=== PATIENT | male | born 1950 ===

== ENCOUNTER 2018-05-12 15:32 | Outpatient (REF) | payer MEDICARE, SELFPAY ==
[2018-05-12 21:47] LABS: Hemoglobin A1C 5.9 % (4.5-6.2)
[2018-05-12 22:09] LABS: ALT 31 U/L (12-78); AST 20 U/L (15-37); Albumin 3.9 g/dL (3.4-5.0); Alkaline Phosphatase 88 U/L (46-116); Anion Gap 6.1 mmol/L (3-11); BUN 12 mg/dL (7-18); Bilirubin, Total 0.5 mg/dL (0.2-1.0); CO2 30.9 mmol/L (21.0-32.0); CREATININE 0.81 mg/dL (0.70-1.30); Calcium 9.3 mg/dL (8.5-10.1); Chloride 103 mmol/L (98-107); Cholesterol 252 mg/dL (50-200); Glucose 77 mg/dL (70-100); HDL Cholesterol 52 mg/dL (40-60); LDL CHOLESTEROL 185 mg/dL (<100); Potassium 4.6 mmol/L (3.5-5.1); Sodium 140 mmol/L (136-145); Total Protein 7.2 g/dL (6.4-8.2); Triglyceride 73 mg/dL (30-150)
[2018-05-14 10:01] LABS: PSA, Screening 8.8 ng/ml (0-6.5)
== END 2018-05-12 15:52 ==
LOC: NCHCN 15:32
PROVIDERS: PCP Family Medicine; Visit Provider Family Medicine
DX: R73.01 Impaired fasting glucose (principal); N40.1 Benign prostatic hyperplasia with lower urinary tract symptoms; R97.20 Elevated prostate specific antigen [PSA]; Z12.5 Encounter for screening for malignant neoplasm of prostate; E66.9 Obesity, unspecified; E78.5 Hyperlipidemia, unspecified
CPT/HCPCS: 80053; 80061; 83721; 84153; 83036

== ENCOUNTER 2019-12-31 16:23 | Outpatient (REF) | payer MEDICARE, SELFPAY ==
[2019-12-31 20:27] LABS: ALT 22 U/L (16-63); AST 17 U/L (15-37); Albumin 3.8 g/dL (3.4-5.0); Alkaline Phosphatase 94 U/L (46-116); Anion Gap 8.6 mmol/L (3-11); BUN 24 mg/dL (7-18); Bilirubin, Total 0.3 mg/dL (0.2-1.0); CO2 27.4 mmol/L (21.0-32.0); CREATININE 1.02 mg/dL (0.70-1.30); Calcium 8.7 mg/dL (8.5-10.1); Calculated LDL 99 mg/dL (<100); Chloride 105 mmol/L (98-107); Cholesterol 168 mg/dL (<200); Glucose 95 mg/dL (74-106); HDL Cholesterol 45 mg/dL (40-60); Potassium 4.2 mmol/L (3.5-5.1); Sodium 141 mmol/L (136-145); Total Protein 6.5 g/dL (6.4-8.2); Triglyceride 120 mg/dL (<150)
[2019-12-31 20:45] LABS: Hemoglobin A1C 5.6 % (<5.7)
[2020-01-03 10:52] LABS: PSA, Screening 8.1 ng/mL (0.0-6.5)
== END 2019-12-31 16:43 ==
LOC: NCHCN 16:23
PROVIDERS: PCP Family Medicine; Visit Provider Family Medicine
DX: E78.5 Hyperlipidemia, unspecified (principal); R73.03 Prediabetes; R97.20 Elevated prostate specific antigen [PSA]; Z12.5 Encounter for screening for malignant neoplasm of prostate; E66.9 Obesity, unspecified
CPT/HCPCS: 80053; 80061; 84153; 83036

== ENCOUNTER 2020-11-14 13:45 | Outpatient (REF) | payer MEDICARE, SELFPAY ==
[2020-11-14 14:38] LABS: Abs Immature Grans 0.02 10^3/uL (0.0-0.06); Absolute Basophil Count 0.03 10^3/uL (0.0-0.2); Absolute Lymphocyte Count 1.47 10^3/uL (1.2-3.4); Absolute Monocyte Count 0.33 10^3/uL (0.1-0.8); Absolute Neutrophil Count 2.58 10^3/uL (1.2-6.7); Basophils % 0.7; Eosinophils % 2.2; HCT 38.6 % (40.0-50.0); HGB 12.1 g/dL (13.5-17.5); Immature Grans % 0.4; Lymphocytes % 32.5; MCH 27.3 pg (27.0-33.0); MCHC 31.3 % (32.0-36.0); MCV 86.9 fL (80-95); MPV 9.4 fL (8.0-11.0); Monocytes % 7.3; Neutrophils % 56.9; Nucleated RBC 0 %; Platelet Count 244 10^3/uL (130-400); RBC 4.44 10^6/uL (4.36-5.78); RDW 16.3 % (11.8-14.1); RDW-SD 51.8 fL; WBC 4.53 10^3/uL (4.4-10.8)
[2020-11-14 15:03] LABS: ALT 29 U/L (16-63); AST 19 U/L (15-37); Albumin 3.9 g/dL (3.4-5.0); Alkaline Phosphatase 102 U/L (46-116); Anion Gap 6.8 mmol/L (3-11); BUN 17 mg/dL (7-18); Bilirubin, Total 0.6 mg/dL (0.2-1.0); CO2 29.2 mmol/L (21.0-32.0); CREATININE 0.9 mg/dL (0.70-1.30); Calcium 8.8 mg/dL (8.5-10.1); Chloride 106 mmol/L (98-107); Glucose 88 mg/dL (74-106); Potassium 4.3 mmol/L (3.5-5.1); Sodium 142 mmol/L (136-145); TSH (W/Ref FT4) 1.03 uIU/mL (0.36-3.74)
[2020-11-14 22:36] LABS: PSA, Screening 11.9 ng/mL (0.0-6.5)
[2020-11-15 09:34] LABS: Calculated LDL 137 mg/dL (<100); Cholesterol 192 mg/dL (<200); HDL Cholesterol 48 mg/dL (40-60); Triglyceride 37 mg/dL (<150)
[2020-11-15 10:28] LABS: Lyme Ab w Rflx to Lyme Confirm Negative (Negative)
[2020-11-16 00:18] LABS: Anaplasma phagocytophilum Negative (Negative); B. miyamotoi PCR Negative (Negative); Babesia divergens/MO-1 Negative (Negative); Babesia duncani Negative (Negative); Ehrlichia chaffeensis Negative (Negative); Ehrlichia ewingii/canis Negative (Negative); Ehrlichia muris eauclairensis Negative (Negative)
[2020-11-16 09:46] LABS: Babesia microti Positive (Negative)
== END 2020-11-14 13:46 | disposition home or self-care (01) ==
LOC: NCHCN 13:45
PROVIDERS: PCP Family Medicine; Visit Provider Family Medicine
DX: R53.83 Other fatigue (principal); R97.20 Elevated prostate specific antigen [PSA]; N40.1 Benign prostatic hyperplasia with lower urinary tract symptoms; M25.50 Pain in unspecified joint
CPT/HCPCS: 80053; 80061; 84153; 87798; 84443; 85025; 86618

== ENCOUNTER 2020-12-21 14:36 | Outpatient (REF) | payer MEDICARE, SELFPAY ==
[2020-12-21 13:56] LABS: HCT 41.6 % (40.0-50.0); HGB 13.6 g/dL (13.5-17.5); MCH 27.4 pg (27.0-33.0); MCHC 32.7 % (32.0-36.0); MCV 83.9 fL (80-95); MPV 10.3 fL (8.0-11.0); Platelet Count 209 10^3/uL (130-400); RBC 4.96 10^6/uL (4.36-5.78); RDW 13.6 % (11.8-14.1); WBC 5.49 10^3/uL (4.4-10.8)
[2020-12-21 14:09] LABS: Iron 87 ug/dL (65-175); Total Iron Binding Capacity 359 ug/dL (250-450); Transferrin Sat 24 % (20-55)
[2020-12-21 14:33] LABS: Ferritin 16 ng/mL (26-388); Folate 18.7 ng/mL (8.6-20.0); Vitamin B12 489 pg/mL (193-986)
== END 2020-12-21 14:37 | disposition home or self-care (01) ==
LOC: NCHCN 14:36
PROVIDERS: PCP Family Medicine; Visit Provider Family Medicine
DX: E78.5 Hyperlipidemia, unspecified (principal); R53.83 Other fatigue; D64.9 Anemia, unspecified; M25.569 Pain in unspecified knee
CPT/HCPCS: 85027; 82607; 82728; 82746; 83540; 83550

== ENCOUNTER 2021-11-19 16:33 | Outpatient (REF) | payer MEDICARE, SELFPAY ==
[2021-11-19 15:48] LABS: Hemoglobin A1C 5.4 % (<5.7)
[2021-11-19 16:17] LABS: ALT 25 U/L (16-63); AST 20 U/L (15-37); Albumin 4.3 g/dL (3.4-5.0); Alkaline Phosphatase 94 U/L (46-116); Anion Gap 7.2 mmol/L (3-11); BUN 16 mg/dL (7-18); Bilirubin, Total 0.5 mg/dL (0.2-1.0); CO2 27.8 mmol/L (21.0-32.0); CREATININE 0.9 mg/dL (0.70-1.30); Calculated LDL 119 mg/dL (<100); Chloride 104 mmol/L (98-107); Cholesterol 185 mg/dL (<200); Glucose 89 mg/dL (74-106); HDL Cholesterol 52 mg/dL (40-60); Potassium 4.5 mmol/L (3.5-5.1); Sodium 139 mmol/L (136-145); Triglyceride 74 mg/dL (<150)
== END 2021-11-19 16:34 | disposition home or self-care (01) ==
LOC: NCHCN 16:33
PROVIDERS: PCP Family Medicine; Visit Provider Family Medicine
DX: E78.5 Hyperlipidemia, unspecified (principal); R73.03 Prediabetes
CPT/HCPCS: 80053; 80061; 83036

== ENCOUNTER 2022-11-14 18:52 | Outpatient (REF) | payer MEDICARE, SELFPAY ==
[2022-11-14 18:14] LABS: ALT 43 U/L (16-63); AST 26 U/L (15-37); Alkaline Phosphatase 81 U/L (46-116); Anion Gap 6.7 mmol/L (3-11); BUN 22 mg/dL (7-18); Bilirubin, Total 0.6 mg/dL (0.2-1.0); CO2 26.3 mmol/L (21.0-32.0); CREATININE 0.9 mg/dL (0.70-1.30); Calcium 8.9 mg/dL (8.5-10.1); Calculated LDL 142 mg/dL (<100); Chloride 108 mmol/L (98-107); Cholesterol 197 mg/dL (<200); Estimated GFR 89.62 (mL/min/1.73m2); Glucose 107 mg/dL (74-106); HDL Cholesterol 47 mg/dL (40-60); Potassium 4.5 mmol/L (3.5-5.1); Sodium 141 mmol/L (136-145); Total Protein 7.3 g/dL (6.4-8.2); Triglyceride 40 mg/dL (<150)
[2022-11-14 18:23] LABS: Hemoglobin A1C 5.6 % (<5.7)
== END 2022-11-14 18:53 | disposition home or self-care (01) ==
LOC: NCHCN 18:52
PROVIDERS: PCP Family Medicine; Visit Provider Family Medicine
DX: E78.5 Hyperlipidemia, unspecified (principal); R73.03 Prediabetes; Z00.00 Encounter for general adult medical examination without abnormal findings
CPT/HCPCS: 80053; 80061; 83036

== ENCOUNTER 2023-11-20 08:31 | Outpatient (REF) | payer MEDICARE, SELFPAY ==
--- OUTSIDE RECORDS SUMMARY | 2023-11-20 08:34 | XMS_ITS | Continuity of Care Document ---
Author Organization [facility] Address [address] [place] [address] Assessment No assessment recorded. Plan of Treatment Reminders Order Date Submit Date Provider Last Modified By Organization Details Last Modified Time Details Appointments FASTING LABS 2023 08:00A M [place] [facility] Not available Not available Not available Medicare Wellness 40 (Subs) 2023 03:20P M MARK ANTHONY MUHAMMAD Not available Not available Not available Lab CMP, serum or plasma 2023 024 [facility] (Registration ), [address] [place] [address] [place], [address], 11/20/2023 08:15:27 lipid panel, serum 2023 024 [facility] (Registration ), [address] [place] [address] [place], [address], 11/20/2023 08:15:27 HbA1c (hemoglob in A1c), blood 2023 024 [facility] (Registration ), [address] [place] [address] [place], [address], 11/20/2023 08:15:27 Referral None recorded. Procedures None recorded. Surgeries None recorded. Imaging None recorded. Medication Orders None recorded. Patient TargetsNo targets recorded. Patient InstructionsNo instructions recorded. Reason for Referral Sleep Medicine Referral for Obstructive sleep apnea syndrome Referral for Kajal Jon, Sleep Specialist, [facility] Referring Physician: Mark Anthony Muhammad, Family Medicine, Encounter Date: 04/08/2023 Problems Name Status Onset Date Resolution Date Notes Provider Name and Address Organization Details Recorded Time Lower urinary tract symptoms due to benign prostatic hypertrophy Active 201511/20/2021 - Comments only - Mark Anthony Muhammad M.D. - with elevated PSA; followed by Jonathan. Problem Code: N40.1; Problem Code Type: ICD-10; MARK ANTHONY MUHAMMAD MD [address], [place], [address] , [facility] 4 10:08:08 Prostate specific antigen above reference range Active 201507/22/2021 - Comments only - Mark Anthony Muhammad M.D. - in setting of BPH. f/b Jonathan. She is on top of most recent numbers. Problem Code: R97.20; Problem Code Type: ICD-10; MD [address], [place], [address] , [facility] 4 10:08:08 Hypertrophic condition of skin Completed 201506/12/2015 06/11/2015 - Comments only - Mark Anthony Muhammad M.D. - Removed with scissors using standard procedure. Pt tolerated it well, no complications . Problem Code: L91.8; Problem Code Type: ICD-10; Not Available [facility] 3 03:58:43 General examination of patient Completed 201506/12/2015 Problem Code: Z00.8; Problem Code Type: ICD-10; Not Available [facility] 3 03:58:44 Tinnitus Completed 201506/19/2015 Problem Code: H93.19; Problem Code Type: ICD-10; Not Available [facility] 3 03:58:44 Bilateral hearing loss Completed 201506/19/2015 06/11/2015 - Comments only - Mark Atnhony Muhammad M.D. - Cereumen removed. Referral for audiology placed. Problem Code: H91.93; Problem Code Type: ICD-10; Not Available [facility] 3 03:58:44 Impacted cerumen Completed 201506/19/2015 Problem Code: H61.20; Problem Code Type: ICD-10; Not Available [facility] 3 03:58:44 Essential tremor Active 201506/11/2015 - Comments only - Mark Anthony Muhammad M.D. - very subtle. Otherwise normal neuro exam. No concern for Parkinsons at this time. Reassurance given. Continue to monitor. Problem Code: G25.0; Problem Code Type: ICD-10; MD [address], [place], [address] , [facility] 4 10:08:08 Traumatic or non-traumatic injury Completed 201507/18/2015 07/11/2015 - Comments only - Dalia Plaza [employer] - doxycycline 200 mg po stat Problem Code: T14.8; Problem Code Type: ICD-10; Not Available [facility] 3 03:58:44 Hyperlipidemi a Active 201611/21/2022 - Deteriorated - Mark Anthony Muhammad M.D. - Lipids: TC 197 (11/14/2022 6:14:00 PM) LDL 142 (11/14/2022 6:14:00 PM) HDL 47 (11/14/2022 6:14:00 PM) TG 40 (11/14/2022 6:14:00 PM) Offered to inc statin, but he prefers to just take it more consistently. check annually. Problem Code: E78.5; Problem Code Type: ICD-10; MD [address]ars[address], [place], [address] , [facility] 4 10:08:08 Single episode of major depression in full remission Active 201611/20/2021 - Comments only - Mark Anthony Muhammad M.D. - doing great on low dose SSRI. Problem Code: F32.5; Problem Code Type: ICD-10; MD [address]ars[address], [place], [address] , [facility] 4 10:08:08 Obesity Active 201612/31/2019 - Improved - Mark Anthony Muhammad M.D. - Congratulated him on having lost weight. Encouraged him to keep up the good work. Problem Code: E66.9; Problem Code Type: ICD-10; MD [address], [place], [address] , [facility] 4 10:08:08 Sensorineural hearing loss of bilateral ears Active 201608/13/2016 - Comments only - Mark Anthony Muhammad M.D. - referred to audiology. Problem Code: H90.3; Problem Code Type: ICD-10; MD [address]ars[address], [place], [address] , [facility] 4 10:08:08 Adult health examination Completed 201805/13/2018 05/12/2018 - Comments only - Mark Anthony Muhammad M.D. - Medicare wellness exam. Personalized prevention plan competed and rev'd with patient. patient was given copy of PPP at conclusion of visit. - HLD : off statin, recheck lipids. - IFG : check A1c today - Obesity : check labs as below - BPH s/p TURP with PSA of 7.0 in 2017. No sx, but recheck PSA today. - Depression: stable off SSRI; continue to monitor; he will let me know if depression comes back. Problem Code: Z00.00; Problem Code Type: ICD-10; MD [address]ars[address], [place], [address] , [facility] 4 10:08:08 Prediabetes Active 201811/21/2022 - Comments only - Mark Anthony Muhammad M.D. - Normal A1c; FBG slightly elevated at 107. Counseled re: healthy diet, exercise. check annually. Problem Code: R73.03; Problem Code Type: ICD-10; MD [address], [place], [address] , [facility] 4 10:08:08 Pain of left hip joint Completed 201904/22/2023 12/31/2019 - Comments only - Mark Anthony Muhammad M.D. 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 Referral placed to his orthopedic surgeon. Problem Code: M25.552; Problem Code Type: ICD-10; MD Dars[address], [facility] [address] , [facility] 4 10:08:12 Obstructive sleep apnea syndrome Active 2019 Problem Code: G47.33; Problem Code Type: ICD-10; MD Darshan [address], [facility] [address] , [facility] 4 10:08:08 Fatigue Completed 202004/22/2023 02/07/2021 - Comments only - Mark Anthony Muhammad M.D. - Fairly chronic at this point. B12, well normal, was on the lower end of the range, so I did recommend he start a B complex. Additionally, start a vitamin D supplement. Advised daily exercise to help with fatigue. Increase fluoxetine to 40 mg a day to see if that is helpful, in case fatigue is related to depression. He will let me know if he wants to continue a higher dose and I will change his prescription accordingly. Problem Code: R53.83; Problem Code Type: ICD-10; MD Darshan [address], [facility] [address] , [facility] 4 10:08:12 Joint pain Completed 202010/31/2020 Problem Code: M25.50; Problem Code Type: ICD-10; Not Available [facility] 3 03:58:46 Anemia Active 202011/30/2020 - Comments only - Mark Anthony Muhammad M.D. - I do not have a prior CBC to which to compare this. Patient is up-to-date on colon cancer screening, due next year. He will return in about a month and we will recheck a CBC, along with iron studies, B12, and folate. Problem Code: D64.9; Problem Code Type: ICD-10; MD [address]ars[address], [place], [address] , [facility] 4 10:08:08 Pain of joint of knee Active 2020 Problem Code: M25.569; Problem Code Type: ICD-10; MD Darshan [address], [place], [address] , [facility] 4 10:08:08 Tension-type headache Completed 202005/07/2021 02/07/2021 - Comments only - Mark Anthony Muhammad M.D. - Mild, occurring a couple times a week. Often in the morning. This suggests to me it could possibly be related to his MARK. Although he is compliant with his CPAP, his settings may need to be adjusted. I recommended he discuss headaches and fatigue with his sleep doctor in March. Problem Code: G44.209; Problem Code Type: ICD-10; Not Available [facility] 3 03:58:46 Disorder of external ear Completed 202004/07/2021 Problem Code: H61.899; Problem Code Type: ICD-10; Not Available [facility] 3 03:58:46 Musculoskelet al symptom Completed 202110/18/2021 07/22/2021 - Comments only - Mark Anthony Muhammad M.D. - No pain. He is actually still quite flexible. Offered PT, but he declines at this time. Handout given for him back exercises. Problem Code: R29.898; Problem Code Type: ICD-10; Not Available [facility] 3 03:58:46 Adult health examination Active 202111/20/2021 - Comments only - MarkA nthony Muhammad M.D. - Medicare wellness exam. HRA reviewed. Personalized prevention plan competed and rev'd with patient. patient was given copy of PPP at conclusion of visit. Problem Code: Z00.00; Problem Code Type: ICD-10; MARK ANTHONY MUHAMMAD MD [address], [place], [address] , [facility]. 4 10:08:08 Removal of suture Completed 202209/21/2022 09/20/2022 - Comments only - Mark Anthony Muhammad M.D. - Laceration has healed well and sutures are ready to be removed. Procedure note: Verbal consent was obtained. Using standard procedure, #10 simple sutures were removed with pickups and scissors. Patient tolerated procedure well. Wound remained intact, with the exception of the deepest part of the V, which has not quite healed. Steri-Strips were placed. After instructions given. Problem Code: Z48.02; Problem Code Type: ICD-10; Not Available [facility] 3 03:58:47 Impaired fasting glycemia Completed 201801/15/2023 Problem Code: R73.01; Problem Code Type: ICD-10; Not Available [facility] 3 03:58:47 Major depression, single episode Completed 201601/15/2023 08/13/2016 - Unchanged - Mark Anthony Muhammad M.D. - pt not sure celexa is working to maximum effect, and has never tried another SSRI. switch to fluoxetine. pt knows he may need to inc dose. f/u over phone. Problem Code: F32.9; Problem Code Type: ICD-10; Not Available [facility] 3 03:58:47 Fever Completed 201506/11/2015 Problem Code: R50.9; Problem Code Type: ICD-10; Not Available [facility] 3 03:58:49 Babesiosis Completed 202011/30/2020 Problem Code: B60.00; Problem Code Type: ICD-10; Not Available [facility] 3 03:58:49 Problem Notes None recorded. Medical Equipment None Reported. Allergies Allergen ID Allergen Name Allergen Category Reaction Reaction Severity Criticality Documentation Date Start Date Code Code System Note Provider Name and Address Organization Details Recorded Time 77408 Compazine medicatio n Not available Not available Not available 02/28/2023201554 6 RxNorm Not Available [facility] 3 16:26:09 Medications Name Sig Start Date Stop Date Status Note LastModified by Organization Details LastModified Time fluoxetin e 40 mg capsule TAKE 1 CAPSULE BY MOUTH EVERY DAY active Not Available Not Available No t Available citalopra m 40 mg tablet Take 1 tab by mouth daily 2015 active Not Available Not Available Not Avai lable atorvasta tin 10 mg tablet TAKE 1 TABLET BY MOUTH EVERY DAY active Not Available Not Available No t Available tramadol 50 mg tablet Take 1 tab by mouth daily up to 4 times 06/05 completed Not Available Not Available Not Available tamsulosi n 0.4 mg capsule Take 1 tab by mouth daily at bedtime 07/10 completed Not Available Not Available Not Available fluoxetin e 10 mg capsule Take 2 capsule by mouth once a day 09/22 completed Not Available Not Available Not Available Aspir-81 mg tablet,de layed release Take 1 tab by mouth daily 05/12 completed Not Available Not Available Not Available fluoxetin e 20 mg capsule Take 1 capsule by mouth once a day 04/02 completed Not Available Not Available Not Available sertralin e 50 mg tablet TAKE 1 TABLET BY MOUTH EVERY DAY 05/12 completed Called in to [facility] in [facility] [phone] Not Available Not Available Not Available doxycycli ne hyclate 100 mg tablet Take 2 tabs by mouth one time 07/11 completed Not Available Not Available Not Available finasteri de 5 mg tablet Take 1 tab by mouth daily 07/10 completed Not Available Not Available Not Available Shingrix (PF) 50 mcg/0.5 mL intramusc ular suspensio n, kit one IM now and repeat in 2-6 months 11/21 completed Not Available Not Available Not Available Vitals None Recorded Social History None recorded. Functional Status None recorded. Mental Status None recorded. Family History Relationship Description Onset Age of this Age Resolved Age Notes Father Family history of he art failure Mother Family history of he art failure Notes:*Problem: mom passed a way at 95, dad - had heart surgery and down to one lung. Medical History No medical history recorded. Immunizations Vaccine Type Date Status Provider Name and Address Organization Details Recorded Time Td (adult), 5 Lf tetanus toxoid, preservative free, adsorbed 11/21/2022 completed Not Available [facility] 02/28/2023 05:33:51 Tdap 09/12/2009 completed Not Available [facility] 05:33:51 zoster live 09/03/2011 completed Not Available [facility] 02/28/2023 05:33:51 Pneumococcal conjugate PCV 13 06/26/2016 completed Not Available [facility] 02/28/2023 05:33:51 Influenza, split virus, trivalent, preservative 06/26/2016 completed Not Available [facility] 02/28/2023 05:33:52 Influenza, high-dose, quadrivalent, PF 02/06/2021 completed Not Available [facility] 02/28/2023 05:33:52 Influenza, high-dose, quadrivalent, PF 02/13/2022 completed Not Available [facility] 02/28/2023 05:33:52 COVID-19, mRNA, LNP-S, PF, 100 mcg/0.5mL dose or 50 mcg/0.25mL dose 06/12/2020 completed Not Available [facility] 02/28/2023 05:33:53 COVID-19, mRNA, LNP-S, PF, 100 mcg/0.5mL dose or 50 mcg/0.25mL dose 07/10/2020 completed Not Available [facility] 02/28/2023 05:33:53 SARS-COV-2 (COVID-19) vaccine, UNSPECIFIED 02/12/2021 completed Not Available [facility] 02/28/2023 05:33:53 COVID-19, mRNA, LNP-S, bivalent, PF, 30 mcg/0.3 mL dose 02/13/2022 completed Not Available [facility] 02/29/20 05:33:54 pneumococcal polysaccharide PPV23 01/06/2014 completed Not Available [facility] 2022 05:33:54 influenza, unspecified formulation 12/20/2010 completed Not Available [facility] 02/28/2023 05:33:54 influenza, unspecified formulation 01/04/2013 completed Not Available [facility] 02/28/2023 05:33:54 influenza, unspecified formulation 01/06/2014 completed Not Available [facility] 02/28/2023 05:33:54 influenza, unspecified formulation 02/19/2020 completed Not Available [facility] 02/28/2023 05:33:54 influenza, unspecified formulation 03/18/2012 completed Not Available [facility] 02/28/2023 05:33:55 influenza, unspecified formulation 03/20/2018 completed Not Available [facility] 02/28/2023 05:33:55 Influenza, high-dose, quadrivalent, PF 02/26/2023 completed Not Available [facility] 05/02/2023 05:31:41 COVID-19, mRNA, LNP-S, PF, ganesh-sucrose, 30 mcg/0.3 mL 02/26/2023 completed Not Available [facility] 05/02/2023 05:31:42 Past Encounters Encounter ID Performer Location Encounter Start Date Encounter Closed Date Diagnosis/Indication Diagnosis SNOMED-CT Code [id number] SHANKAR BONNER RN [address] [address] 11/20/2023 07:43:54 11/20/2023 08:19:55 Adult health examination [id number] Health Concerns Section Related Observation LastModified by Organization Detai ls LastModified Time None Recorded Concern Status LastModified by Organization Details LastModified Time None Recorded Payers Encounter Date Sequence Insurance Name Policy Number Policy Ruby Covered Member ID Ruby Member ID Guarantor Name 11/20/2023 2 [employer] OPTIONS (MEDICARE SUPPLEMENT) [place] [id number] [place] [employer] 11/20/2023 1 [place] [employer] [place] [employer] [id number] [place] [employer]
--- OUTSIDE RECORDS SUMMARY | 2023-11-20 08:34 | XMS_ITS | Encounter Summary ---
Author Organization [facility] Address [address] [place] [address] Care Team Providers Care Support Group Manager Name Role Phone Not In System, Provider Primary Care Provider Un available Encounter Details Date Type Department Care Team (Latest Contact Info) Description 03/10/2020 8:05 AM EST - 03/10/2020 11:59 PM EST Hospital Encounter [facility] Pre-encounter Lab Hema Rodriguez MD [address] [place] [address] Screening for viral disease; Preop examination Discharge Disposition: Home or Self Care Social History Tobacco Use Types Packs/Day Years Used Date Smoking Tobacco: Never Alcohol Use Standard Drinks/Week Comments Yes 0 (1 standard drink = 0.6 oz pur e alcohol) rare Sex and Gender Information Value Date Recorded Sex Assigned at Not on file Gender Identity Not on file Sexual Orientation Not on file Job Start Date Occupation Industry Not on file Not on file Not on file COVID-19 Exposure Response Date Recorded In the last month, have you been in contact with someone who was confirmed or suspected to have Coronavirus / COVID-19? Unable to assess 03/10/2020 9:49 AM EST documented as of this encounter Medications at Time of Discharge Medication Sig Dispensed Refills Start Date End Date atorvastatin (LIPITOR) 10 MG tablet Take 10 mg by mouth once daily. 11/28/2019 FLUoxetine (PROZAC) 10 MG capsule Take 20 mg by mouth once daily. 11/30/2019 acetaminophen (TYLENOL) 500 MG tabletIndications:Status post total hip replacement, left Take 2 (two) tablets (1,000 mg total) by mouth every 8 (eight) hours for 14 days. Take Post-Operatively. 84 tablet 03/01/2020 03/15/2020 celecoxib (CELEBREX) 200 MG capsuleIndications:Statu s post total hip replacement, left Take 1 (one) capsule (200 mg total) by mouth 2 (two) times a day for 14 days. Take Post-Operatively. 28 capsule 03/01/2020 03/15/2020 gabapentin (NEURONTIN) 300 MG capsuleIndications:Statu s post total hip replacement, left Take 1 (one) capsule (300 mg total) by mouth 3 (three) times a day for 14 days. Take Post-Operatively. 42 capsule 03/01/2020 03/15/2020 acetaminophen (TYLENOL) 500 MG tabletIndications:Primar y osteoarthritis of left hip Take 2 tablets three times daily starting 2 days prior to surgery and on the morning of surgery. 14 tablet 03/01/2020 03/13/2020 aspirin (ASA) 325 MG enteric coated tabletIndications:Status post total hip replacement, left Take 1 (one) tablet (325 mg total) by mouth 2 (two) times a day for 25 days. Take post-operatively. 50 tablet 03/01/2020 03/30/2020 celecoxib (CELEBREX) 200 MG capsuleIndications:Prima ry osteoarthritis of left hip Take 1 capsule twice daily starting 2 days prior to surgery and on the morning of surgery. 5 capsule 03/01/2020 03/13/2020 gabapentin (NEURONTIN) 100 MG capsuleIndications:Prima ry osteoarthritis of left hip Take 1 capsule three times daily starting 2 days prior to surgery and on the morning of surgery. 7 capsule 03/01/2020 03/13/2020 omeprazole (PRILOSEC) 40 MG delayed release capsuleIndications:Statu s post total hip replacement, left Take 1 (one) capsule (40 mg total) by mouth daily at 6:30 am. Start Postoperatively. 20 capsule 03/01/2020 03/30/2020 oxyCODONE (ROXICODONE) 5 MG immediate release tabletIndications:Status post total hip replacement, left Take 1 (one) tablet (5 mg total) by mouth every 6 (six) hours as needed. Take Post-Operatively. 20 tablet 03/01/2020 03/30/2020 polyethylene glycol (MIRALAX) 17 gram packetIndications:Status post total hip replacement, left Take 17 (seventeen) g by mouth once daily. Start postoperatively. 14 packet 03/01/2020 03/30/2020 documented as of this encounter Plan of Treatment Not on file documented as of this encounter Procedures Procedure Name Priority Date/Time Associated Diagnosis Comments COVID-19 PCR Routine 03/10/2020 10:02 AM EST Screening for viral disease Preop examination documented in this encounter Results * COVID-19, PCR (03/10/2020 10:02 AM EST) SARS-CoV-2 Not Detected Not Detected 03/10/2020 5:03 PM EST Comment: The 2019-CoV environmental conservation professor-PCR Assay is only for use under a Food and Drug Administration Emergency Use Authorization. The performance characteristics of the assay were verified by the Clinical Microbiology Laboratory at [facility]. Results should be used in conjunction with the patient? s clinical symptoms, medical history and other clinical/laboratory findings to determine an overall clinical diagnosis. Negative results do not preclude infection with SARS-CoV-2. Test parameters have not been validated for screening in asymptomatic patients. SARS-CoV-2 COMMENT Footnote 2019 5:03 PM EST Comment: Test Performed by: [facility] [address] [place] [address] Nasopharyngeal 03/10/2020 10 :02 AM EST 03/10/2020 10:02 AM EST Hema Rodriguez MD BODY FLUIDS AND NORMA ALVAREZ ORDERABLES [facility] [address] [place] [address] documented in this encounter Visit Diagnoses Diagnosis Screening for viral disease Special screening examination for unspecified viral disease Preop examination Unspecified pre-operative examination documented in this encounter Care Teams Support Group Manager Relationship Specialty Start Date End Date Not In System, [place] [address] PCP - General 01/03/20 documented as of this encounter
--- OUTSIDE RECORDS SUMMARY | 2023-11-20 08:34 | XMS_ITS | Encounter Summary ---
Author Organization [facility] Address [address] [place] [address] Care Team Providers Care Online Marketing Coordinator Name Role Phone Not In System, Provider Primary Care Provider Un available Encounter Details Date Type Department Care Team (Late st Contact Info) Description 03/07/2020 Plan of Care Documentation [facility] [address] [place] [address] Social History Tobacco Use Types Packs/Day Years [...] or suspected to have Coronavirus / COVID-19? No / Unsure 03/01/2020 11:25 AM EST documented as of this encounter Plan of Treatment Not on file documented as of this encounter Visit Diagnoses Not on filedocumented in this encounter Care Teams Online Marketing Coordinator Relationship Specialty Start Date End Date Not In System, [place] [address] PCP - General 01/03/20 documented as of this encounter
--- OUTSIDE RECORDS SUMMARY | 2023-11-20 08:34 | XMS_ITS | Encounter Summary ---
[place] [address] Care Team Providers Care Operations Architect Name Role Phone Benjamin Muhammad MD Primary Care Provider [phone] Reason for Referral * Physical Therapy (Routine) - Closed Specialty Diagnoses / Procedures Referred By Bambi seals Referred To Contact Physical Therapy Diagnoses Chronic pain of left knee Pain in left hip Tabatha Woodard APRN [facility] [place] [address] Referral ID Status Reason Start Date Expiration Date V isits Requested Visits Authorized [id number] Closed Evaluate and Treat 02/20/2022 08/19/2022 12 12 Reason for Visit * Reason Comments Establish Care Left Knee Pain * Consultation (Routine) - Closed Specialty Diagnoses / Procedures Referred By Bambi seals Referred To Contact Orthopaedics Diagnoses ACUTE ON CHRONIC LT KNEE PAIN W/O INJURY HX LT KNEE SCOPE DOS APPRX 2006 (ANGEL) KELSEY Self mail [facility] [address] [place] [address] Referral ID Status Reason Start Date Expiration Date V isits Requested Visits Authorized [id number] Closed Consult, Test & Treat 02/04/2022 02/04/2023 1 1 Encounter Details Date Type Department Care Team (Latest Contact Info) Description 02/20/2022 2:00 PM EDT Office [place] [address] Tabatha Woodard APRN [facility] [address] [place] [address] Chronic pain of left knee (Primary Dx); Primary osteoarthritis of left knee; Pain in left hip Social History Tobacco Use Types Packs/Day Years Used Date Smoking Tobacco: Never Smokeless Tobacco: Never Sex and Gender Information Value Date Recorded Sex Assigned at Not on file Gender Identity Not on file Sexual Orientation Not on file documented as of this encounter Last Filed Vital Signs Vital Sign Reading Time Taken Comments Blood Pressure 141/76 02/20/2022 1:15 PM EDT Pulse 50 02/20/2022 1:15 PM EDT Temperature - - Respiratory Rate - - Oxygen Saturation - - Inhaled Oxygen Concentration - - Weight 99.8 kg (220 lb 1.6 oz) 02/20/2022 1:15 P M EDT Height 172.7 cm (5' 8) 02/20/2022 1:15 PM EDT Body Mass Index 33.47 02/20/2022 1:15 PM EDT documented in this encounter Progress Notes * Tabatha Woodard, JENNIFER - 02/20/2022 2:00 PM EDT Arthroplasty History/Previous Knee Surgery: 1. LEFT knee arthroscopy 2006 2. Both hip JEAN PAUL left JEAN PAUL 2019 Dr. Rodriguez right hip JEAN PAUL 2015. Chief Complaint: LEFT knee pain This patient was referred from Self mail I.D.: [place] Mg is a 71 y.o. year old male being seen today to discuss his left knee. His history and physical exam were reviewed in detail. He states the knee has been symptomatic for a few weeks. The initial symptoms are reported as trouble lifting my leg and wonders if things are coming from my hip. There was yes inciting trauma/injury (kneeling on the kneeling). He does describe some new weakness in the LEFT hip. Hx of JEAN PAUL surgery. He does feel as if he walks with a limp mostly with start up. Aggravating factors include + start up pain. Alleviating factors include relative rest and avoidance of painful activity. He can walk independently and does not use assistive devices. He has not tried physical therapy. He reports that over the past few days things are starting to settle and feel better. He has not had tried injections into the joint. NONE reported He has tried NSAID's/Pain meds (OTC). Mr. Mg denies No reported fevers/chills/headache/chest pain/shortness of breath/abdominal pain/nausea or vomiting/weight changes He does not endorse a history of DVT/PE or clotting disorder. ASSOCIATED DIAGNOSES: He does reports problems with the ipsilateral hip (new weakness in the hip with known JEAN PAUL). does not report problems with the contralateral knee and does not have a history of spine or back issues. ALLERGIES Not on File Allergies to metals: none reported. SOCIAL HISTORY: Occupation: [employer]. SIGNIFICANT MEDICAL [employer] MORBIDITIES: There is no problem list on file for this patient. VITALS: BP Readings from Last 1 Encounters: No data found for BP Pulse Readings from Last 1 Encounters: No data found for Pulse There is no height or weight on file to calculate BMI. PHYSICAL EXAM: Constitution: Patient sits in the clinic today in no apparent distress. The patient is alert and oriented x 3. Appearance is age-appropriate, affect is similarly appropriate. I have made the following determinations: Gait is steady and non-antalgic. No assistive devices. SLR capability intact. Focal thickening chronic due to hx of kneeling. Trace effusion. No evidence of infection. No groin pain with IR/ER . Non-focal lumbar spine exam. Knee Exam: Left Prior surgery on this joint: Yes Gait Abnormality: Mild start up antalgia that corrects with ambulation Knee ROM: Extension:5 Flexion: 125 Alignment: 5-11 degrees Varus Stability: A/P Translation <5mm Varus (lateral stability) <5mm Valgus (medial stability) <5mm Extension La-10 degrees Patella Tracking: Normal Skin Integrity: Normal Pulses Palpable: Left PT:Yes Left DP:Yes Motor/Sensory: Distal Motor:Normal Distal Sensory: Normal Quadriceps Strength:5 RADIOGRAPHIC ANALYSIS: Together, we reviewed his radiographs obtained previously which demonstrate degenerative joint disease. Kellgren-Darius Grade: 2= some osteophytes, some narrowing with chondrocalcinosis [0= normal; 1=minimal ; 2= some osteophytes , some narrowing ; 3= moderate osteophytes, significantnarrowing, mild deformity; 4= large osteophytes, marked narrowing, obvious deformity] Questionnaire Responses: No flowsheet data found. No flowsheet data found. No flowsheet data found. ASSESSMENT AND PLAN: Mr. Mg is a 71 y.o. year old male with moderate osteoarthritis and chondrocalcinosis of his left knee. The knee pain is by and large resolving with conservative management. We reviewed the multiple treatment options available to him for this condition. Both operative and non operative options were discussed as well as the pure elective nature of each. I reviewed the concept of the arthritis ladder with its step-leggett approach, rising in invasiveness based on either previous response or symptom severity/impact on lifestyle. Considering the apparent impact on his lifestyle and having explored non- operative treatment options, I indicated that in my opinion, the treatment most likely to restore a more normal, pain-free level of function would be to start with a comprehensive PT program emphasizing quad and VMO strengthening, hip abductor strengthening, balance/proprioceptive work. OTC NSAID's or APAP PRN. Cool packs. Avoid activities that reproduce pain. I recommend a f/u in 6-8 weeks if things do not settle. Pt agrees, questions solicited/answered, will return as scheduled and as needed for concerns or questions. Pt understands they may also call usprn for above. documented in this encounter Plan of Treatment Upcoming Encounters Date Type Department Care Team (Late st Contact Info) Description 03/10/2024 9:30 AM EST Office Visit Sleep Center at [address] [address] Corbin Epstein MD [facility] [place] [place] [address] Scheduled Referrals Name Type Priority Associated Diagnoses Orde r Schedule Referral to Physical Therapy Outpatient Referral Routine Chronic pain of left knee Pain in left hip Ordered: 02/20/2022 documented as of this encounter Results * XR Knee Standing Alignment AP Lat [place] Left (02/20/2022 2:15 PM EDT) Anatomical Region Laterality Modality Left Digital Radiogra phy Impressions 02/20/2022 3:22 PM EDT 1. ??Bilateral knee, LEFT greater than RIGHT CPPD associated osteoarthropathy. 2. ??Bilateral hip arthroplasty with midline mechanical axis. I have personally reviewed the image(s) and the resident's interpretation and agree with the findings, Leatha Vazquez MD at 02/20/2022 3:22 PM Thank you for letting us participate in the care of this patient. ??If you are a health care provider and have any questions regarding this report, please contact the number below. ??For patients who have questions please contact the health care transition mgr that requested your imaging first. ? Electronically signed by: Leatha Vazquez MD, [facility] ([phone]), at 02/20/2022 3:22 PM Narrative 02/20/2022 3:22 PM EDT EXAMINATION: XR KNEE STANDING ALIGNMENT AP LAT [place] SKYLINE LEFT CLINICAL HISTORY: acute on chronic left knee pain ? alignment ? DJD TECHNIQUE: Separate images of the pelvis, knees and feet were acquired in the AP projection with the patient standing. ??These images were stitched together to form a composite image of the pelvis and legs. PA Carr, bilateral skyline, and LEFT lateral knee views are included. COMPARISON: None FINDINGS: Alignment: Mechanical axis is midline bilaterally. Partially visualized bilateral total hip arthroplasty without adjacent fracture or joint malalignment. Partially visualized RIGHT knee demonstrates chondrocalcinosis, osteophytic lipping, and marginal osteophyte formation with narrowing of the lateral medial compartments. LEFT knee: Medial lateral compartment narrowing, osteophytic lipping, and subchondral sclerosis present. Joint space chondrocalcinosis is present. Additional calcinosis in the proximal gastrocnemius muscles. No joint effusion. Procedure Note Leatha Vazquez MD - 02/20/2022 EXAMINATION: XR KNEE STANDING ALIGNMENT AP LAT [place] SKYLINE LEFT CLINICAL HISTORY: acute on chronic left knee pain ? alignment ? DJD TECHNIQUE: Separate images of the pelvis, knees and feet were acquired inthe AP projection with the patient standing. These images were stitched togetherto form a composite image of the pelvis and legs. PA Carr, bilateralskyline, and LEFT lateral knee views are included. COMPARISON: None FINDINGS: Alignment: Mechanical axis is midline bilaterally. Partially visualized bilateral total hip arthroplasty without adjacentfracture or joint malalignment. Partially visualized RIGHT knee demonstrates chondrocalcinosis,osteophytic lipping, and marginal osteophyte formation with narrowing of the lateralmedial compartments. LEFT knee: Medial lateral compartment narrowing, osteophytic lipping,and subchondral sclerosis present. Joint space chondrocalcinosis is present. Additional calcinosis in the proximal gastrocnemius muscles. No jointeffusion. IMPRESSION 1. Bilateral knee, LEFT greater than RIGHT CPPD associatedosteoarthropathy. 2. Bilateral hip arthroplasty with midline mechanical axis. I have personally reviewed the image(s) and the resident's interpretationand agree with the findings, Leatha Vazquez MD at 02/20/2022 3:22 PM Thank you for letting us participate in the care of this patient. If youare a health care provider and have any questions regarding this report,please contact the number below. For patients who have questions please contactthe health care transition mgr that requested your imaging first. Electronically signed by: Leatha Vazquez MD, [facility]([phone]), at 02/20/2022 3:22 PM Tabatha Woodard TRACTOR TRAILER OPERATOR IMG DX ORDERABLES documented in this encounter Visit Diagnoses Diagnosis Chronic pain of left knee- Primary Pain in joint, lower leg Primary osteoarthritis of left knee Primary localized osteoarthrosis, lower leg Pain in left hip Pain in joint, pelvic region and thigh Chronic pain of left knee Pain in joint, lower leg documented in this encounter Care Teams Operations Architect Relationship Specialty Start Date End Date Benjamin Muhammad MD [address] [place] [address] PCP - General Family Medicine 02/04/22 documented as of this encounter
--- OUTSIDE RECORDS SUMMARY | 2023-11-20 08:34 | XMS_ITS | Encounter Summary ---
[place] [address] Care Team Providers Care Production Engineer Name Role Phone Benjamin Muhammad MD Primary Care Provider [phone] Encounter Details Date Type Department Care Team (Latest Contact Info) Description 10/27/2023 Travel Social History Tobacco Use Types Packs/Day Years Used Date Smoking Tobacco: Never Smokeless Tobacco: Never Sex and Gender Information Value Date Recorded Sex Assigned at Not on file Gender Identity Not on file Sexual Orientation Not on file documented as of this encounter Plan of Treatment Upcoming Encounters Date Type Department Care Team (Late st Contact Info) Description 03/10/2024 9:30 AM EST Office Visit Sleep Center at [address] [address] Corbin Epstein MD [facility] [place] [address] documented as of this encounter Visit Diagnoses Not on filedocumented in this encounter Care Teams Production Engineer Relationship Specialty Start Date End Date Benjamin Muhammad MD [address] [facility] [address] [place] [address] PCP - General Family Medicine 02/04/22 documented as of this encounter
--- OUTSIDE RECORDS SUMMARY | 2023-11-20 08:34 | XMS_ITS | Data Portability ---
Author Organization [facility] Address [address] [place] [address] Assessment No assessment recorded. Plan of Treatment Reminders Order Date Submit Date Provider Last Modified By Organization Details Last Modified Time Details Appointments FASTING LABS 2023 08:00A M [facility] Staff Not available Not available Not available Medicare Wellness 40 (Subs) 2023 03:20P M MARK ANTHONY MUHAMMAD Not available Not available Not available Lab CMP, serum or plasma 2023 024 [facility] (Registration ), [address] [place] [address] [place], [address], 11/20/2023 08:15:27 lipid panel, serum 2023 024 [facility] (Registration ), [address] [place] [address] [place], [address], 11/20/2023 08:15:27 HbA1c (hemoglob in A1c), blood 2023 024 [facility] (Registration ), [address] [place] [address] [place], [address], 11/20/2023 08:15:27 Referral None recorded. Procedures None recorded. Surgeries None recorded. Imaging None recorded. Medication Orders None recorded. Patient TargetsNo targets recorded. Patient InstructionsNo instructions recorded. Reason for Referral Sleep Medicine Referral for Obstructive sleep apnea syndrome Referral for Kajal Jon, Sleep Specialist, [facility] Referring Physician: Mark Anthony Muhammad, Family Medicine, [...] MARK ANTHONY MUHAMMAD MD [address], [place], [address] , [facility] 4 10:08:08 Prostate specific antigen above reference range Active 201507/22/2021 - Comments only - Mark Anthony Muhammad M.D. - in setting of BPH. f/b Jonathan. She is on top of most recent numbers. Problem Code: R97.20; Problem Code Type: ICD-10; MD [address], [place], [address] , [facility] 4 10:08:08 Hypertrophic condition of skin Completed 201506/12/2015 06/11/2015 - Comments only - Mark Anthony Muhammad M.D. - Removed with scissors using standard procedure. Pt tolerated it well, no complications . Problem Code: L91.8; Problem Code Type: ICD-10; Not Available [facility] 3 03:58:43 General examination of patient Completed 201506/12/2015 Problem Code: Z00.8; Problem Code Type: ICD-10; Not Available [facility] 3 03:58:44 Tinnitus Completed 201506/19/2015 Problem Code: H93.19; Problem Code Type: ICD-10; Not Available [facility] 3 03:58:44 Bilateral hearing loss Completed 201506/19/2015 06/11/2015 - Comments only - Mark Anthony Muhammad M.D. - Cereumen removed. Referral for audiology placed. Problem Code: H91.93; Problem Code Type: ICD-10; Not Available [facility] 3 03:58:44 Impacted cerumen Completed 201506/19/2015 Problem Code: H61.20; Problem Code Type: ICD-10; Not Available [facility] 3 03:58:44 Essential tremor Active 201506/11/2015 - Comments only - Mark Anthony Muhammad M.D. - very subtle. Otherwise normal neuro exam. No concern for Parkinsons at this time. Reassurance given. Continue to monitor. Problem Code: G25.0; Problem Code Type: ICD-10; MD [address], [place], [address] , [facility] 4 10:08:08 Traumatic or non-traumatic injury Completed 201507/18/2015 07/11/2015 - Comments only - [place] [place] [facility] - doxycycline 200 mg po stat Problem Code: T14.8; Problem Code Type: ICD-10; Not Available [facility] 3 03:58:44 Hyperlipidemi a Active 201611/21/2022 - Deteriorated - Mark Anthony Muhammad M.D. - Lipids: TC 197 (11/14/2022 6:14:00 PM) LDL 142 (11/14/2022 6:14:00 PM) HDL 47 (11/14/2022 6:14:00 PM) TG 40 (11/14/2022 6:14:00 PM) Offered to inc statin, but he prefers to just take it more consistently. check annually. Problem Code: E78.5; Problem Code Type: ICD-10; MD [address], [place], [address] , [facility] 4 10:08:08 Single episode of major depression in full remission Active 201611/20/2021 - Comments only - Mark Anthony Muhammad M.D. - doing great on low dose SSRI. Problem Code: F32.5; Problem Code Type: ICD-10; MD [address], [place], [address] , [facility] 4 10:08:08 Obesity Active 201612/31/2019 - Improved - Mark Anthony Muhammad M.D. - Congratulated him on having lost weight. Encouraged him to keep up the good work. Problem Code: E66.9; Problem Code Type: ICD-10; MD [address], [place], [address] , [facility] 4 10:08:08 Sensorineural hearing loss of bilateral ears Active 201608/13/2016 - Comments only - Mark Anthony Muhammad M.D. - referred to audiology. Problem Code: H90.3; Problem Code Type: ICD-10; MD [address], [place], [address] , [facility] 4 10:08:08 Adult health examination Completed 201805/13/2018 [...] Code Type: ICD-10; MD [address], [place], [address] , [facility] 4 10:08:08 Prediabetes Active 201811/21/2022 - Comments only - Mark Anthony Muhammad M.D. - Normal A1c; FBG slightly elevated at 107. Counseled re: healthy diet, exercise. check annually. Problem Code: R73.03; Problem Code Type: ICD-10; MD [address], [place], [address] , [facility] 4 10:08:08 Pain of left hip joint Completed 201904/22/2023 12/31/2019 - Comments only - Mark Anthony Muhammad M.D. 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 Referral placed to his orthopedic surgeon. Problem Code: M25.552; Problem Code Type: ICD-10; MD [address], [facility] [address] , [facility] 4 10:08:12 Obstructive sleep apnea syndrome Active 2019 Problem Code: G47.33; Problem Code Type: ICD-10; MD [address], [facility] [address] , [facility] 4 10:08:08 Fatigue Completed 202004/22/2023 02/07/2021 - [...] Code Type: ICD-10; MD [address], [facility] [address] , [facility] 4 10:08:12 Joint pain Completed 202010/31/2020 Problem Code: M25.50; Problem Code Type: ICD-10; Not Available [facility] 3 03:58:46 Anemia Active 202011/30/2020 - Comments [...] Code Type: ICD-10; MD [address], [place], [address] , [facility] 4 10:08:08 Pain of joint of knee Active 2020 Problem Code: M25.569; Problem Code Type: ICD-10; MD [address], [place], [address] , [facility] 4 10:08:08 Tension-type headache Completed 202005/07/2021 02/07/2021 [...] G44.209; Problem Code Type: ICD-10; Not Available [facility] 3 03:58:46 Disorder of external ear Completed 202004/07/2021 Problem Code: H61.899; Problem Code Type: ICD-10; Not Available [facility] 3 03:58:46 Musculoskelet al symptom Completed 202110/18/2021 07/22/2021 - Comments only - Mark Anthony Muhammad M.D. - No pain. He is actually still quite flexible. Offered PT, but he declines at this time. Handout given for him back exercises. Problem Code: R29.898; Problem Code Type: ICD-10; Not Available [facility] 3 03:58:46 Adult health examination Active 202111/20/2021 - Comments only - Mark Anthony Muhammad M.D. - Medicare wellness exam. HRA reviewed. Personalized prevention plan competed and rev'd with patient. patient was given copy of PPP at conclusion of visit. Problem Code: Z00.00; Problem Code Type: ICD-10; MARK ANTHONY MUHAMMAD MD [address], [place], [address] , [facility]. 4 10:08:08 Removal of suture Completed 202209/21/2022 [...] Problem Code Type: ICD-10; Not Available [facility] 3 03:58:47 Impaired fasting glycemia Completed 201801/15/2023 Problem Code: R73.01; Problem Code Type: ICD-10; Not Available [facility] 3 03:58:47 Major depression, single episode Completed 201601/15/2023 08/13/2016 - Unchanged - Mark Anthony Muhammad M.D. - pt not sure celexa is working to maximum effect, and has never tried another SSRI. switch to fluoxetine. pt knows he may need to inc dose. f/u over phone. Problem Code: F32.9; Problem Code Type: ICD-10; Not Available [facility] 3 03:58:47 Fever Completed 201506/11/2015 Problem Code: R50.9; Problem Code Type: ICD-10; Not Available [facility] 3 03:58:49 Babesiosis Completed 202011/30/2020 Problem Code: B60.00; Problem Code Type: ICD-10; Not Available [facility] 3 03:58:49 Problem Notes None recorded. Medical Equipment None Reported. Allergies Allergen ID Allergen Name Allergen Category Reaction Reaction Severity Criticality Documentation Date Start Date Code Code System Note Provider Name and Address Organization Details Recorded Time 90323 Compazine medicatio n Not available Not available Not available 02/28/2023201554 6 RxNorm Not Available [facility] 3 16:26:09 Medications Name Sig Start Date [...] EVERY DAY 05/12 completed Called in to [facility] in [facility] Not Available Not Available Not Available doxycycli [...] free, adsorbed 11/21/2022 completed Not Available [facility] 02/28/2023 05:33:51 Tdap 09/12/2009 completed Not Available [facility] 05:33:51 zoster live 09/03/2011 completed Not Available [facility] 02/28/2023 05:33:51 Pneumococcal conjugate PCV 13 06/26/2016 completed Not Available [facility] 02/28/2023 05:33:51 Influenza, split virus, trivalent, preservative 06/26/2016 completed Not Available [facility] 02/28/2023 05:33:52 Influenza, high-dose, quadrivalent, PF 02/06/2021 completed Not Available [facility] 02/28/2023 05:33:52 Influenza, high-dose, quadrivalent, PF 02/13/2022 completed Not Available [facility] 02/28/2023 05:33:52 COVID-19, mRNA, LNP-S, PF, 100 mcg/0.5mL dose or 50 mcg/0.25mL dose 06/12/2020 completed Not Available [facility] 02/28/2023 05:33:53 COVID-19, mRNA, LNP-S, PF, 100 mcg/0.5mL dose or 50 mcg/0.25mL dose 07/10/2020 completed Not Available [facility] 02/28/2023 05:33:53 SARS-COV-2 (COVID-19) vaccine, UNSPECIFIED 02/12/2021 completed Not Available [facility] 02/28/2023 05:33:53 COVID-19, mRNA, LNP-S, bivalent, PF, 30 mcg/0.3 mL dose 02/13/2022 completed Not Available [facility] 02/29/20 05:33:54 pneumococcal polysaccharide PPV23 01/06/2014 completed Not Available [facility] 2022 05:33:54 influenza, unspecified formulation 12/20/2010 completed Not Available [facility] 02/28/2023 05:33:54 influenza, unspecified formulation 01/04/2013 completed Not Available [facility] 02/28/2023 05:33:54 influenza, unspecified formulation 01/06/2014 completed Not Available [facility] 02/28/2023 05:33:54 influenza, unspecified formulation 02/19/2020 completed Not Available [facility] 02/28/2023 05:33:54 influenza, unspecified formulation 03/18/2012 completed Not Available [facility] 02/28/2023 05:33:55 influenza, unspecified formulation 03/20/2018 completed Not Available [facility] 02/28/2023 05:33:55 Influenza, high-dose, quadrivalent, PF 02/26/2023 completed Not Available [facility] 05/02/2023 05:31:41 COVID-19, mRNA, LNP-S, PF, ganesh-sucrose, 30 mcg/0.3 mL 02/26/2023 completed Not Available [facility] 05/02/2023 05:31:42 Past Encounters Encounter ID Performer Location Encounter Start Date Encounter Closed Date Diagnosis/Indication Diagnosis SNOMED-CT Code [id number] SHANKAR BONNER RN [address] [address] 11/20/2023 07:43:54 11/20/2023 08:19:55 Adult health examination [id number] Health Concerns Section Related Observation LastModified by Organization Detai ls LastModified Time None Recorded Concern Status LastModified by Organization Details LastModified Time None Recorded Advance Directives Directive None Recorded Payers Encounter Date Sequence Insurance Name Policy Number Policy Ruby Covered Member ID Ruby Member ID Guarantor Name 11/20/2023 2 [employer] OPTIONS (MEDICARE SUPPLEMENT) [place] [id number] [place] 11/20/2023 1 [place] [employer] [place] [id number] [place]
--- OUTSIDE RECORDS SUMMARY | 2023-11-20 08:34 | XMS_ITS | Encounter Summary ---
[place] [address] Care Team Providers Care Alterations Tailor Name Role Phone Benjamin Muhammad MD Primary Care Provider [phone] Encounter Details Date Type Department Care Team (Latest Contact Info) Description 10/08/2023 Travel Social History Tobacco Use Types Packs/Day [...] AM EST Office Visit Sleep Center at [address] [address] Corbin Epstein MD [facility] [place] [address] documented as of this encounter Visit Diagnoses Not on filedocumented in this encounter Care Teams Alterations Tailor Relationship Specialty Start Date End Date Benjamin Muhammad MD [facility] [address] [place] [address] PCP - General Family Medicine 02/04/22 documented as of this encounter
--- OUTSIDE RECORDS SUMMARY | 2023-11-20 08:34 | XMS_ITS | Encounter Summary ---
Author Organization [facility] Address [address] [place] [address] Care Team Providers Care Acute Care Nurse Name Role Phone Not In System, Provider Primary Care Provider Un available Reason for Visit * Reason Comments Post-op LEFT HIP Encounter Details Date Type Department Care Team (Late st Contact Info) Description 04/26/2020 8:30 AM EST Office Visit [facility] [address] [place] [address] Hema Rodriguez MD [address] [place] [address] History of total hip arthroplasty, left (Primary Dx) Social History Tobacco Use Types Packs/Day Years [...] file Not on file Not on file documented as of this encounter Last Filed Vital Signs Vital Sign Reading Time Taken Comments Blood Pressure - - Pulse - - Temperature - - Respiratory Rate - - Oxygen Saturation - - Inhaled Oxygen Concentration - - Weight 93 kg (205 lb 0.4 oz) 04/26/2020 8:54 AM EST Height 175.3 cm (5' 9) 04/26/2020 8:54 AM EST Body Mass Index 30.28 04/26/2020 8:54 AM EST documented in this encounter Progress Notes * Hema Rodriguez - 04/26/2020 8:30 AM EST Televisit secondary to COVID-19 [place] is now 6 weeks status post left JEAN PAUL. No pain. Progressing well with PT. Performing daily homeexercise program. Has regained functional motion is now working on strength incision is healing well. No erythema. No excessive warmth. No postoperative swelling. Ambulating unassisted weightbearing as tolerated. Returning to normal activities of daily living. Overall pleased with his recovery. Allquestions answered. Assessment S/P left JEAN PAUL Plan Continue PT Continue HEP RTO 8 weeks with x-ray documented in this encounter Plan of Treatment Not on file documented as of this encounter Visit Diagnoses Diagnosis History of total hip arthroplasty, left- Primary documented in this encounter Care Teams Acute Care Nurse Relationship Specialty Start Date End Date Not In System, Provider [place]SE [place]AL[place] [address] PCP - General 01/03/20 documented as of this encounter
--- OUTSIDE RECORDS SUMMARY | 2023-11-20 08:34 | XMS_ITS | Encounter Summary ---
Author Organization [facility] [place] [address] Care Team Providers Care Measurement Advisor Name Role Phone Benjamin Muhammad MD Primary Care Provider [phone] Encounter Details Date Type Department Care Team (Latest Contact Info) Description 02/20/2022 1:42 PM EDT - 02/20/2022 11:59 PM EDT Hospital Encounter XRay at [address] [place] [address] Tabatha Woodard APRN [facility] [place] [address] Chronic pain of left knee Discharge Disposition: Home Social History Tobacco Use Types Packs/Day Years Used Date Smoking Tobacco: Never Smokeless Tobacco: Never Sex and Gender Information Value Date Recorded Sex Assigned at Not on file Gender Identity Not on file Sexual Orientation Not on file documented as of this encounter Medications at Time of Discharge Medication Sig Dispensed Refills Start Date End Date FLUoxetine (PROzac) 40 mg Capsule Take 40 mg by mouth daily. 12/06/2021 atorvastatin (Lipitor) 10 mg Tablet Take 10 mg by mouth daily. 01/18/2022 documented as of this encounter Plan of Treatment Upcoming Encounters Date Type Department Care Team (Late st Contact Info) Description 03/10/2024 9:30 AM EST Office Visit Sleep Center at [facility] [address] [place] [address] Corbin Epstein MD [facility] [place] [address] documented as of this encounter Procedures Procedure Name Priority Date/Time Associated Diagnosis Comments XR KNEE STANDING ALIGNMENT AP LAT [place] SK[place] LEFT Routine 02/20/2022 2:15 PM EDT Chronic pain of left knee documented in this encounter Results * XR Knee Standing Alignment AP Lat [place] Left (02/20/2022 2:15 PM EDT) Anatomical Region [...] who have questions please contact the health healthcare administration internship that requested your imaging first. ? Electronically signed by: Leatha Vazquez MD, [facility] ([phone]), at 02/20/2022 3:22 PM Narrative 02/20/2022 3:22 [...] patients who have questions please contactthe health healthcare administration internship that requested your imaging first. Electronically signed by: Leatha Vazquez MD, [facility]([phone]), at 02/20/2022 3:22 PM Tabatha Woodard APRN IMG DX ORDERABLES documented in this encounter Visit Diagnoses Diagnosis Chronic pain of left knee Pain in joint, lower leg documented in this encounter Care Teams Measurement Advisor Relationship Specialty Start Date End Date Benjamin Muhammad MD [address] [place] [address] PCP - General Family Medicine 02/04/22 documented as of this encounter
--- OUTSIDE RECORDS SUMMARY | 2023-11-20 08:34 | XMS_ITS | Encounter Summary ---
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 Name Role Phone Not In System, Provider Primary Care Provider Un available Reason for Visit * Auth/Cert Specialty Diagnoses / Procedures Referred By Bambi seals Referred To Contact Diagnoses Primary osteoarthritis of left hip Primary osteoarthritis of left hip [M16.12] Procedures MT TOTAL HIP ARTHROPLASTY HIP, TOTAL ARTHROPLASTY Hema Rodriguez MD [address] [place] [address] Referral ID Status Reason Start Date Expiration Date Visits Re quested Visits Authorized [id number] 1 1 Encounter Details Date Type Department Care Team (Latest Contact Info) Description 03/13/2020 7:30 AM EST - 03/13/2020 3:30 PM EST Hospital Encounter [facility] [address] [place] [address] Hema Rodriguez MD [address] [place] [address] Primary osteoarthritis of left hip Discharge Disposition: Home or Self Care Social [...] AM EST documented as of this encounter Last Filed Vital Signs Vital Sign Reading Time Taken Comments Blood Pressure 105/54 03/13/2020 1:30 PM EST Pulse 68 03/13/2020 1:30 PM EST Temperature 36.2 ??C (97.2 ??F) 03/13/2020 12:[address] Respiratory Rate 15 03/13/2020 1:30 PM EST Oxygen Saturation 95% 03/13/2020 1:30 PM EST Inhaled Oxygen Concentration - - Weight - - Height - - Body Mass Index - - documented in this encounter Discharge Summaries * MADINA Fajardo - 03/13/2020 2:53 PM EST DISCHARGE SUMMARY [facility] Discharge Information Date and time of Admission: 03/13/2020 7:30 AM Date of Discharge: 03/13/2020 Discharge Diagnoses: Principal Problem: Primary osteoarthritis of left hip Active Problems: MARK on CPAP Resolved Problems: * No resolved hospital problems. * Discharge Medications: Current Discharge Medication List CONTINUE these medications which have NOT CHANGED Details atorvastatin (LIPITOR) 10 MG tablet Take 10 mg by mouth once daily. FLUoxetine (PROZAC) 10 MG capsule Take 20 mg by mouth once daily. acetaminophen (TYLENOL) 500 MG tablet Take 2 (two) tablets (1,000 mg total) by mouth every 8 (eight) hours for 14 days. Take Post-Operatively. Qty: 84 tablet, Refills: 0 Associated Diagnoses: Status post total hip replacement, left aspirin (ASA) 325 MG enteric coated tablet Take 1 (one) tablet (325 mg total) by mouth 2 (two) times a day for 25 days. Take post-operatively. Qty: 50 tablet, Refills: 0 Associated Diagnoses: Status post total hip replacement, left celecoxib (CELEBREX) 200 MG capsule Take 1 (one) capsule (200 mg total) by mouth 2 (two) times a day for 14 days. Take Post-Operatively. Qty: 28 capsule, Refills: 0 Associated Diagnoses: Status post total hip replacement, left gabapentin (NEURONTIN) 300 MG capsule Take 1 (one) capsule (300 mg total) by mouth 3 (three) times a day for 14 days. Take Post-Operatively. Qty: 42 capsule, Refills: 0 Associated Diagnoses: Status post total hip replacement, left omeprazole (PRILOSEC) 40 MG delayed release capsule Take 1 (one) capsule (40 mg total) by mouth daily at 6:30 am. Start Postoperatively. Qty: 20 capsule, Refills: 0 Associated Diagnoses: Status post total hip replacement, left oxyCODONE (ROXICODONE) 5 MG immediate release tablet Take 1 (one) tablet (5 mg total) by mouth every 6 (six) hours as needed. Take Post-Operatively. Qty: 20 tablet, Refills: 0 Comments: Partial fill upon patient request. Associated Diagnoses: Status post total hip replacement, left polyethylene glycol (MIRALAX) 17 gram packet Take 17 (seventeen) g by mouth once daily. Start postoperatively. Qty: 14 packet, Refills: 0 Associated Diagnoses: Status post total hip replacement, left Attending Physician on Discharge: Hema Rodriguez Pending Labs: Unresulted Labs (From admission, onward) Start Ordered Signed and Held Basic Metabolic Panel Morning draw Question: Release to patient Answer: Immediate Signed and Held Signed and Held CBC with Diff Morning draw Question: Release to patient Answer: Immediate Signed and Held Follow-up (including scheduledtests): Things you need to do Follow up with Hema Rodriguez DO in 2 week(s) [facility] will call you to schedule your two week post-operative visit. You should have new x-rays taken prior to your visit. Where: [address] [place] [address] Immunizations given this hospitalization: Presentation Information History of Present Illness: Chico Mg is a very pleasant 69 y.o. who presented for an elective Left Total Hip Arthroplasty due to a long history of Osteoarthritis. The date of patient's surgery was 03/13/2020 and went without complications. Patient was able to work with an in-house physical therapist on mobility and strengthening exercises. He was instructed to observe posterior hip precautions for six weeks postoperatively. The patient's hospital stay was without complications. Chico Mg will be discharged to his home with [facility] physical therapy services to follow. All other systems reviewed negative and noncontributory. Past Medical History: Past Medical History: Diagnosis Date ??? Depression ??? Elevated serum cholesterol ??? MARK on CPAP Allergies: Prochlorperazine Hospital Course: Hospital Course Hospital Course by MADINA Fajardo at 03/13/2020 2:52 PM Author: MADINA Fajardo Author Type: Physician Operator Receptionist Filed: 03/13/2020 2:53 PM Note Status: Signed Cosign: Cosign Not Required Date of Service: 03/13/2020 2:52 PM Electromechanical Equipment Tester: MADINA Fajardo (Physician Operator Receptionist) Chico Mg is a very pleasant 69 y.o. who presented for an elective Left Total Hip Arthroplasty due to a long history of Osteoarthritis. The date of patient's surgery was 03/13/2020 and went without complications. Patient was able to work with an in-house physical therapist on mobility and strengthening exercises. He was instructed to observe posterior hip precautions for six weeks postoperatively. The patient's hospital stay was without complications. Chico Mg will be discharged to his home with [facility] physical therapy services to follow. Showing 1 note, more notes may be available. Procedures: Total Hip Arthroplasty, Left 03/13/2020 Discharge Day Information: Discharge Physical Exam: Physical Exam Vitals and nursing note reviewed. Constitutional: Appearance: Normal appearance. He is normal weight. Pulmonary: Effort: Pulmonary effort is normal. Musculoskeletal: Comments: LLE: Aquacel C/D/I. Edematous at site. Without erythema, excessive warmth. AROM intact. +NVI distally. Skin: General: Skin is warm and dry. Capillary Refill: Capillary refill takes less than 2 seconds. Neurological: General: No focal deficit present. Mental Status: He is alert. Psychiatric: Mood and Affect: Mood normal. Behavior: Behavior normal. Thought Content: Thought content normal. Judgment: Judgment normal. Condition: Improved Disposition: Home with Services Discharge Communication: Consultants During This Hospitalization: PT, OT PCPnotified by phone or email? No The care of this patient was performed in collaboration with Hema Rodriguez DO. Signature: MADINA Fajardo Electronic Signature Associated attestation - Hema Rodriguez - 03/13/2020 4:22 PM EST Date of Service: 03/13/20. I have reviewed, updated, and verified this note's content and I agree with the attached note's assessment and plan (with the exception of any of my comments indicating otherwise in this attestation note). documented in this encounter Discharge Instructions * Discharge Instr - Other Orders* MADINA Fajardo - 03/13/2020 9:35 AM EST Images from the original note were not included. NURSING DISCHARGE INFORMATION AFTER A TOTAL HIP REPLACEMENT Authored by: Dr. Rodriguez ACTIVITY/RESTRICTIONS ??? See copy of specific exercises provided to you from Physical Therapy; perform these exercises at home. ??? Please observe POSTERIOR HIP PRECAUTIONS for six weeks post-operatively. ??? Avoid prolonged periods of sitting or standing. ??? Apply ice to your Surgical Hip frequently (remove or reposition it every 20 minutes). ??? Do not apply heat near incision. INCISION CARE/SHOWERING ?? Keep incision covered with the Aquacel dressing for 1 week; it is waterproof and should be left in place. ?? Please remove the Aquacel Dressing 1 week after your surgery date! ?? You may shower as soon as you return home; no baths/swimming. ?? Do not scrub/wash incision until seen by your physician. NOTIFY YOUR DOCTOR IF YOU DEVELOP ??? Fever of 101 degrees or higher ??? Acute pain associated with twisting, turning or injury that doesn???t subside with rest ??? Persistent drainage, swelling, or burning from the operative site ??? Persistent change in color/coolness of the operated leg/foot Calf pain, chest pain or shortness of breath CALL MISCELLANEOUS ??? You must inform your dentist about your new joint replacement. ??? Please wait 3 months after your total joint surgery to schedule a dental appointment. ??? You will need antibiotics before dental/surgical procedures. We can prescribe these for you. FOLLOW-UP ??? [facility] will call you to schedule your post-operative visits: ??? Your surgeon would like you to schedule your first follow-up appointment for 2 weeks with new x-rays taken prior to the visit. MEDICATIONS ??? Please take 325mg of Aspirin twice daily for 4 weeks; this is to prevent blood clots. ??? The following medications have been prescribed for you for pain: ??? Tylenol 1000mg three times daily ??? Gabapentin 300mg two times daily ??? Celebrex 200mg twice daily ??? Oxycodone 5mg every 4-6 hours as needed o NOTE: Narcotic medication may cause constipation, so we encourage fluids, walking around, and youmay sweet pickle maker a stool softener, like Miralax, from your pharmacy. ??? Please see Medication Reconciliation Sheet for a complete list of your medications. Need help? [facility] (629-058-NENU) has numerous resources available 11/11 for patients, family/friends, and providers. Call [facility] at [phone] if you have any questions. Thank you! [facility] AMBULATORY SURGERY PROGRAM HOME CARE INSTRUCTIONS YOU ARE URGED TO FOLLOW CAREFULLY THE FOLLOWING INSTRUCTIONS 1. Do not drink alcoholic beverages including beer for 24 hours or while taking pain medication. Alcohol enhances the effects of anesthesia and pain medication. 2. Refrain from smoking. 3. Do not drive a car, ride a bike, skateboard, or operate machinery for 24 hours or longer if taking pain medication. 4. Do not make any important decisions or sign any papers for 24 hours. 5. Dizziness and lightheadedness are normal after surgery. DO NOT STAY ALONE for the first 24 hours. 6. It is important that you rest for 24 hours after anesthesia/sedation. After the 24 hours, followthe activity level ordered by your physician. 7. Progress slowly to a regular diet unless otherwise instructed by your physician. Start with liquids and progress to more solid food as tolerated. Certain anesthetics and pain medication can cause nausea and vomiting. If this becomes a problem call your physician. 8. If nausea and vomiting are a problem lay on your side while you rest to avoid accidental inhalation of vomitus. 9. Take 10 slow deep breaths every hour while awake. Attempt to cough to clear any secretions in your lungs; this will help prevent post -operative pneumonia. If you have had abdominal surgery, hugging a pillow at the incision site while you cough and deep breath will reduce discomfort. 10. To prevent the formation of blood clots: Perform 12 repetitions of ankle exercises every one -hour while awake until you return to your pre-admission level of activity. Ankle exercises involve the following steps; ??? Point feet downward, as if pushing on a gas pedal, and hold this position for one second ??? Net, pull feet towards your head and hold for one second. ??? Then, rotate /turn the ankles inward and hold for one second. ??? Then, rotate /turn the ankles outward and hold for one second. POST-OPERATIVE TELEPHONE CALL A hospital benefits representative will call you tomorrow or the next business day to ask how you are feeling and if we may provide any further services. Do not be alarmed. This is a routine call to find out how you are progressing after your surgery. FOLLOW-UP CARE You should see Dr on . Call the doctor???s office for an appointment. If you experience difficulty in breathing, bleeding that you think is excessive, persistent nausea or vomiting, any pain that is unusual, or unusual swelling or fever, please call your physician at . documented in this encounter Medications at Time of Discharge Medication Sig Dispensed Refills Start Date End Date atorvastatin (LIPITOR) 10 MG tablet Take 10 mg by mouth once daily. 11/28/2019 FLUoxetine (PROZAC) 10 MG capsule Take 20 mg by mouth once daily. 11/30/2019 acetaminophen (TYLENOL) 500 MG tabletIndications:Statu s post total hip replacement, left Take 2 (two) tablets (1,000 mg total) by mouth every 8 (eight) hours for 14 days. Take Post-Operatively. 84 tablet 03/01/2020 03/15/2020 celecoxib (CELEBREX) 200 MG capsuleIndications:Stat us post total hip replacement, left Take 1 (one) capsule (200 mg total) by mouth 2 (two) times a day for 14 days. Take Post-Operatively. 28 capsule 03/01/2020 03/15/2020 gabapentin (NEURONTIN) 300 MG capsuleIndications:Stat us post total hip replacement, left Take 1 (one) capsule (300 mg total) by mouth 3 (three) times a day for 14 days. Take Post-Operatively. 42 capsule 03/01/2020 03/15/2020 aspirin (ASA) 325 MG enteric coated tabletIndications:Statu s post total hip replacement, left Take 1 (one) tablet (325 mg total) by mouth 2 (two) times a day for 25 days. Take post-operatively. 50 tablet 03/01/2020 03/30/2020 omeprazole (PRILOSEC) 40 MG delayed release capsuleIndications:Stat us post total hip replacement, left Take 1 (one) capsule (40 mg total) by mouth daily at 6:30 am. Start Postoperatively. 20 capsule 03/01/2020 03/30/2020 oxyCODONE (ROXICODONE) 5 MG immediate release tabletIndications:Statu s post total hip replacement, left Take 1 (one) tablet (5 mg total) by mouth every 6 (six) hours as needed. Take Post-Operatively. 20 tablet 03/01/2020 03/30/2020 polyethylene glycol (MIRALAX) 17 gram packetIndications:Statu s post total hip replacement, left Take 17 (seventeen) g by mouth once daily. Start postoperatively. 14 packet 03/01/2020 03/30/2020 documented as of this encounter H&P Notes * Hema Rodriguez - 03/13/2020 8:44 AM EST The age of the H&P is: 1 (24 hours) to 30 days. H&P was updated. The patient was seen and re-examined and there are no changes to the original H&P findings. Source Note - Hema Rodriguez - 01/12/2020 12:30 PM EDT Patient Name: Chico Mg Date of : 1950 CONSULTATION Provider Not In System HPI: Chico Mg is very pleasant 69 y.o. who presents today with a greater than six month history of severe debilitating pain referable to the left hip. The onset of the pain was gradual but it has now increased to the point where it is present at all times and worsened with weight-bearing activity. The pain is characterized as deep, stabbing and catching. It is located primarily in the groin but radiates to the buttock and thigh. The severity of the discomfort and stiffness is causing inability to walk for anything more than a short distance or stand for any length of time. Rising from a chair and negotiating stairs as well as donning nothing footwear is difficult.The pain is worse at night and interfering with sleep. Activity modification, physical therapy, exercise and NSAIDs, aunp-tsl-zbdfgar medications have been tried without relief. ROS: Per intake form. All other systems reviewed negative and non-contributory. PHYSICAL EXAM: Well groomed, Normal development and appearance. Alert and oriented X 3 and in good spirits. Normalcoordination. Speaks articulately with normal affect. Walks with antalgic trendelenburg gait. Positive Trendelenburg sign. Painful crepitus with passive and active motion of the hip. Obligatory external rotation with flexion of the hip. Limited to no internal rotation. 10?? flexion contracture. Significant weakness in flexion and abduction. Straight 5-/5. IMAGING: Weight-bearing AP Pelvis and AP/Lateral XRs of the left hip showed evidence of severe osteoarthritis with loss of joint space, subchondral sclerosis, and osteophytes. IMPRESSION: 1. Severe Osteoarthritis left hip The diagnosis and treatment of Osteoarthritis was fully explained with drawings and models. We discussed the risks benefits options and alternatives of treatment with the patient and a decision was reached to go forward with a Total Hip Arthroplasty. We also discussed the importance of Pre-Operative Medical Optimization, which includes seeing PCP and specialist providers, addressing any medical concerns prior to surgery (including wounds, rashes,cold-like symptoms, UTIs, etc.. PLAN: 1. Left total Hip Arthroplasty - Physical Therapy Prehab - Crutches to be provided - Pre-admission Testing to be scheduled: Labs and imaging studies ordered - Pre-operative teaching course per RN recommended and to be scheduled - Request: Preoperative medical clearance from PCP/Care Team Hema Rodriguez DO 01/12/2020 12:55 PM documented in this encounter Consult Notes Only the most recent of 2 notes is shown. * Mercy Qureshi, OT - 03/13/2020 2:53 PM EST Past Medical / Past Surgical: Past Medical History: Diagnosis Date ??? Depression ??? Elevated serum cholesterol ??? MARK on CPAP Past Surgical History: Procedure Laterality Date ??? HIP ARTHROPLASTY Right [facility] ??? KNEE ARTHROSCOPY ??? SPINE SURGERY L4-5 ??? TONSILLECTOMY ??? TRANSURETHRAL RESECTION OF PROSTATE Allergies: Prochlorperazine Patient's Hospital Problem's: Principal Problem: Primary osteoarthritis of left hip Active Problems: MARK on CPAP Subjective: I had my other hip done, I am ready to go home. Clinical Impression: POD #0 69 yo M s/p L JEAN PAUL 03/13/[address] Rodriguez. Patient reports he had R JEAN PAUL in the past. He presents with deficits including decrease strength, balance, gait and independence with LB ADLs, however patient feels he can manage in home with AE and assist from adult child and roommate. At baseline he liveswith roommate and adult child in home with 4 COREEN, B rails. Patient states he was working in [employer] and would like to return to work when able. Patient presents to OT evaluation today completed in PACU prior to patient d/c home. Pt was able towear facemask during their therapy session, with this business writer. This therapist wore PPE in accordance with current infection control guidelines. 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 Homemaking Responsibilities: Yes Meal Prep Responsibility: Primary Laundry Responsibility: Primary Cleaning Responsibility: Primary Bill Paying/Finance Responsibility: Primary Medication Management Responsibilities: Primary Shopping Responsibility: Primary Office Clerk Assistant Responsibility: No Homemaking Comments: patient completed all IADLs independently Home Living: Type of Home: House Home Access: Stairs to enter with rails Entrance Stairs-Rails: Both Entrance Stairs-Number of Steps: 4 Home Layout: One level Bathroom Shower/Tub: Walk-in shower Bathroom Toilet: Standard Bathroom Accessibility: Yes How Accessible: Accessible via walker Home Equipment: Forearm crutches Precautions: Precautions Initiated/Maintained: Fall risk, Total hip Objective: ADL performance: Eating Level of Assistance: Modified independent Eating - Where Assessed: Sitting Grooming Level of Assistance: Setup Grooming Where Assessed: Seated in bedside chair UE Bathing Level of Assistance: Modified independent UE Bathing Where Assessed: Edge of bed LE Bathing Level of Assistance: Modified independent LE Bathing Where Assessed: Edge of bed UE Dressing Level of Assistance: Modified independent UE Dressing Where Assessed: Seated edge of bed LE Dressing Level of Assistance: Close supervision LE Dressing Where Assessed: Seated edge of bed LE Dressing Comments: close supervision edge of bed due to complaints of feeling woozy BP 113/72.Patient states he has sock aide, teacher's assistant, and shoe horn which he used with previous hip surgery. Toileting Level of Assistance: Modified independent Where Assessed: Urinal Toileting Comments: stand at edge of bed to use urinal Mod I Functional Mobility: Refer to PT eval Balance: Balance Sitting - Static: Good Sitting - Dynamic: Fair+ Standing - Static: Fair+ Standing - Dynamic: Fair Upper Body Function: Cervical Assessment Cervical Assessment: Within Functional Limits RUE Assessment RUE Assessment: Within Functional Limits LUE Assessment LUE Assessment: Within Functional Limits Which is your dominant hand?: Right Integumentary: Skin Integrity: surgical dressing over Left hip incision Functional cognition: Cognition Overall Cognitive Status: Within Functional Limits Arousal/Alertness: Alert Orientation Level: Oriented X4 Barriers to Patient Learning: None Comprehension: Follows complex conversations for daily interaction, Follow complex directions for daily activities Commands: 2 Step Commands Yes/No Questions: Intact Vision/Perception: Vision-Basic Assessment Current Vision: No visual deficits Hearing/Communication: Hearing Hearing Status: No impairment Communication Communication: Appropriate for situation Plan of Care: Recommendation: No skilled OT Interdisciplinary Communication: RN, PT Communication Relayed: collaboration of care Profile and History: A(n) Expanded review of the patient's occupational profile, medical history, therapy history, and co-morbidities was completed. Occupational Performance Deficits: The patient has 1-3 that result in activity limitation and/or restricted participation as listed above. Clinical Decision Making: Included analysis of data from detailed assessment and patient required minimal to moderate modification or assistance to participation. Based on the above OT low complexity Evaluation Code 85198 is appropriate. Signature: Mercy Qureshi OTR/L Electronic Signature documented in this encounter Nursing Notes * Reena Choi RN - 03/13/2020 12:14 PM EST Patient under general anesthesia. Bladder scan >707. Leiva attempted. Leiva was inserted until it met resistance. No urine return. When leiva was removed a small amount of blood noted at tip of leiva. No additional attempts made. PA made aware. documented in this encounter Miscellaneous Notes * Plan of Care - Merlyn Taylor RN - 03/13/2020 3:13 PM EST Final discharge plan determined and confirmed. Final Discharge Info Patient Being Discharged To: 6 - Disch/Trans to home w/ home health services Home Health Facility/Agency Name (A-K): [facility] Transportation home/to next appointment?: Accompanied by responsible adult Name or Relationship of Accompaniment: [facility] [phone] I received a call from Shonda PAINTER from PACU.Patient is being discharged from there.Patient would like home care services and has been in touch with [facility].I called them to confirm and sent a Referral to them. * Hospital Course - MADINA Fajardo - 03/13/2020 2:52 PM EST Chico Mg is a very pleasant 69 y.o. who presented for an elective Left Total Hip Arthroplasty due to a long history of Osteoarthritis. The date of patient's surgery was 03/13/2020 and went without complications. Patient was able to work with an in-house physical therapist on mobility and strengthening exercises. He was instructed to observe posterior hip precautions for six weeks postoperatively. The patient's hospital stay was without complications. Chico Mg will be discharged to his home with [facility] physical therapy services to follow. * Op Note - Hema Rodriguez - 03/13/2020 10:29 AM EST Op Note Brief Op Note Brief Op Note by Hema Rodriguez DO at 03/13/2020 10:29 AM Author: Hema Rodriguez DO Author Type: Physician Filed: 03/13/2020 12:15 PM Note Status: Addendum Cosign: Cosign Not Required Date of Service: 03/13/2020 10:29 AM Electromechanical Equipment Tester: Hema Rodriguez DO (Physician) Pre-Op Diagnosis Codes: * Primary osteoarthritis of left hip [M16.12] Post-Op Diagnosis Codes: * Primary osteoarthritis of left hip [M16.12] Date of Surgery: 03/13/2020 Procedure(s): Procedure(s) (LRB): HIP, TOTAL ARTHROPLASTY (Left) All surgeon(s) on case: Surgeon(s): Hema Rodriguez DO Operator Receptionist(s): SARAH Fajardo CST Anesthesia Type: General EBL: 300 IV Fluids: 750 mL Urine Output: 0 mL Bladder Scanned for >400cc at end of case, see Nursing Documentation Findings: 69-year-old gentleman with advanced osteoarthritis left hip refractory to conservative care Intraoperative found to have loss of articular cartilage subchondral sclerosis peripheral osteophytes periarticular fibrosis and synovitis. Lines / Implants: Patient Lines/Drains/Airways Status Active Active LDAs Name: Placement date: Placement time: Site: Days: Peripheral IV 03/13/20 Right Hand 03/13/20 0756 Hand less than 1 ETT Oral ETT 7.5 mm Cuffed 03/13/20 1001 less than 1 Implant Name Type Inv. Item Serial No. Gunstock Repairer Lot No. LRB No. Used Action TRIDENT II TRITANIUM CLUSTERHOLE 54E - [id number] TRIDENT II TRITANIUM CLUSTERHOLE 54E [employer] [id number] Left 1 Implanted 6.5MM LOW PROFILE HEX SCREW 20MM - [id number] 6.5MM LOW PROFILE HEX SCREW 20MM [employer] 2NPE Left 1 Implanted 6.5MM LOW PROFILE HEX SCREW 25MM - [id number] 6.5MM LOW PROFILE HEX SCREW 25MM [employer] 2HMA Left 1 Implanted TRIDENT 0X3 INSERT 36MM ID - [id number] TRIDENT 0X3 INSERT 36MM ID [employer] [id number] Left 1 Implanted SIZE 4 ACCOLADE II 127 DEG - [id number] SIZE 4 ACCOLADE II 127 DEG [employer] [id number] Left 1 Implanted DELTA V-40 CERAMIC HEAD 360 - [id number] DELTA V-40 CERAMIC HEAD 360 [employer] [id number] Left 1 Implanted Specimen(s) Information: * No specimens in log * Complication(s): None Condition: Stable Other / Plan: Standard postop JEAN PAUL protocol. Posterior precautions-could not perform capsule repair due to deficient tissue Signature: Hema Rodriguez, DO Electronic Signature Description of Procedure Following administration of a general anesthetic the patient was carefully padded and positioned laterally. Hip was prepped and draped in standard fashion. A timeout was taken all in agreement. Direct superior approach was utilized. Sharp dissection was carried down through skin subcutaneous tissues. Harley fascia was split. External rotators and capsule were taken down as a layer sparing the piriformis. Hip was dislocated. Neck was resected. Deep retractors were placed exposing the acetabulum. 54 mm. A 54 mm cup was then pressed into place in abdominal position. Further secured with 2 bone screws. Final E liner placed. Attention turned to the femur. Canal was opened with a box osteotome. C anal was distally reamed approximately broached to a size 4. Trial was carried out with 127 degree and +25 head. Excellent range of motion and stability was seen. Intraoperative digital radiography was obtained of the right lung system. Size position and orientation of components was under satisfactory. Leg length was slightly long on the operative side. Return to the fieldd remove the trials in the size fouri femoral component was placed. Trialn was then carried out with a 0 head. ROM and Stability were satisfactory. The final ceramic +0 head was then placed hip was relocated and final trial was satisfactory and repair the capsule but the integrity of tissue was not satisfactory for this purpose. We copiously irrigated the wound and closed in layers. Sterile dressings were applied anesthesia discontinued the patient transferred to recovery in stable condition. All counts were correct collections assistant was utilized during the entire surgery. She assisted in patient positioning, prepping, draping, retraction, cauterization, positioning extremity intraoperatively, layered closure of the wound, applying a sterile dressing, removing the drapes and transporting the patient to a postoperative bed for safe transfer to the PACU. This is not a teaching hospital no residents or fellows were available to assist. * Brief Op Note - Hema Rodriguez - 03/13/2020 10:29 AM EST Pre-Op Diagnosis Codes: * Primary osteoarthritis of left hip [M16.12] Post-Op Diagnosis Codes: * Primary osteoarthritis of left hip [M16.12] Date of Surgery: 03/13/2020 Procedure(s): Procedure(s) (LRB): HIP, TOTAL ARTHROPLASTY (Left) All surgeon(s) on case: Surgeon(s): Hema Rodriguez DO Operator Receptionist(s): SARAH Fajardo, [place] Anesthesia Type: General EBL: 300 IV Fluids: 750 mL Urine Output: 0 mL Bladder Scanned for >400cc at end of case, see Nursing Documentation Findings: 69-year-old gentleman with advanced osteoarthritis left hip refractory to conservative care Intraoperative found to have loss of articular cartilage subchondral sclerosis peripheral osteophytes periarticular fibrosis and synovitis. Lines / Implants: Patient Lines/Drains/Airways Status Active Active LDAs Name: Placement date: Placement time: Site: Days: Peripheral IV 03/13/20 Right Hand 03/13/20 0756 Hand less than 1 ETT Oral ETT 7.5 mm Cuffed 03/13/20 1001 less than 1 Implant Name Type Inv. Item Serial No. Gunstock Repairer Lot No. LRB No. Used Action TRIDENT II TRITANIUM CLUSTERHOLE 54E - [id number] TRIDENT II TRITANIUM CLUSTERHOLE 54E [employer] [id number] Left 1 Implanted 6.5MM LOW PROFILE HEX SCREW 20MM - [id number] 6.5MM LOW PROFILE HEX SCREW 20MM [employer] 2NPE Left 1 Implanted 6.5MM LOW PROFILE HEX SCREW 25MM - [id number] 6.5MM LOW PROFILE HEX SCREW 25MM [employer] 2HMA Left 1 Implanted TRIDENT 0X3 INSERT 36MM ID - [id number] TRIDENT 0X3 INSERT 36MM ID [employer] [id number] Left 1 Implanted SIZE 4 ACCOLADE II 127 DEG - [id number] SIZE 4 ACCOLADE II 127 DEG [employer] [id number] Left 1 Implanted DELTA V-40 CERAMIC HEAD 360 - [id number] DELTA V-40 CERAMIC HEAD 360 [employer] [id number] Left 1 Implanted Specimen(s) Information: * No specimens in log * Complication(s): None Condition: Stable Other / Plan: Standard postop JEAN PAUL protocol. Posterior precautions-could not perform capsule repair due to deficient tissue Signature: Hema Rodriguez DO Electronic Signature documented in this encounter Plan of Treatment Not on file documented as of this encounter Procedures Procedure Name Priority Date/Time Associated Diagnosis Comments X-RAY PELVIS 1 OR 2 VW STAT 03/13/2020 1:00 PM EST X-RAY RADLINK NO CHARGE Routine 03/13/2020 11:30 AM EST MT ARTHRP ACETBLR/PROX FEM PROSTC AGRFT/ALGRFT 03/13/2020 9:39 AM EST Primary osteoarthritis of left hip Case Notes AVG, COAGULATING DRYING SUPERVISOR, Chris. 2 hours. Radlink. Consider fast track (?) Special Needs AVG, COAGULATING DRYING SUPERVISOR, [place]. 2 hours. Radlink. Consider fast track (?) documented in this encounter Results * X-Ray Pelvis 1 or 2 Views (03/13/2020 1:00 PM EST) Anatomical Region Laterality Modality Radiographic Steph ging Impressions 03/13/2020 1:06 PM EST IMPRESSION: 1. Expected postsurgical changes status post total left hip arthroplasty. 2. Intact appearing right hip arthroplasty. RADCAT Grade: RADCAT2: Routine result. Signing Doctor: Yann De Leon MD ?Date Signed:03/13/2020 1:06 PM Patient ? DOS:03/13/2020 12:40 PM ?Exam:[id number] X-RAY PELVIS 1 OR 2 VW Narrative 03/13/2020 1:06 PM EST CLINICAL HISTORY: S/P Hip Arthoplasty TECHNIQUE: A single AP view of the pelvis is performed. COMPARISON: None. FINDINGS: There are postsurgical changes related to bilateral total hip arthroplasties. The hardware is intact, unremarkable in alignment. There is some air within the soft tissue surrounding the left hip related to the recent surgery. The soft tissues appear otherwise normal. 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 Procedure Note Yann De Leon MD - 03/13/2020 CLINICAL HISTORY: S/P Hip Arthoplasty TECHNIQUE: A single AP view of the pelvis is performed. COMPARISON: None. FINDINGS: There are postsurgical changes related to bilateral total hiparthroplasties. The hardware is intact, unremarkable in alignment. Thereis some air within the soft tissue surrounding the left hip related to therecent surgery. The soft tissues appear otherwise normal. Degenerative disc disease is present involvingthe lower lumbar spine. IMPRESSION: 1. Expected postsurgical changes status post total left hiparthroplasty. 2. Intact appearing right hip arthroplasty. RADCAT Grade: RADCAT2: Routine result. Signing Doctor: Yann De Leon MD Date Signed:03/13/2020 1:06 PM Patient DOS:03/13/2020 12:40 PM Exam:[id number] X-RAY PELVIS 1 OR 2 VW Shonda PAINTER [facility] DIAGNOSTIC IMAGI NG ORDERABLES * X-Ray RADLINK NO CHARGE (03/13/2020 11:30 AM EST) Narrative 03/13/2020 11:30 AM EST THIS IS A SYSTEM GENERATED RESULT: This exam was performed intraoperatively, no Radiologist was present and the films obtained do not require radiologic interpretation. Hema Rodriguez MD G DIAGNOSTIC IMAGI NG ORDERABLES documented in this encounter Visit Diagnoses Diagnosis Primary osteoarthritis of left hip- Primary MARK on CPAP documented in this encounter Admitting Diagnoses Diagnosis Primary osteoarthritis of left hip documented in this encounter Administered Medications Inactive Administered Medications - up to 3 most recent administrations Medication Order MAR Action Action Date Dose Rate Site haloperidol lactate (HALDOL) 5 mg/mL injection 1 mg 1 mg, Intravenous, Once as needed, nausea/vomiting (first line), Starting on Fri03/13/20 at 0849, 1 dose, Until Fri03/13/20 at 1731, PACU (only) HYDROmorphone (DILAUDID) 0.5 mg/0.5 mL injection 0.25 mg 0.25 mg, Intravenous, Every 10 min PRN, mild pain, Starting on Fri03/13/20 at 0849, 4 doses, Until Fri03/13/20 at 1731, PACU (only), To max dose of 1 mg LOOK-ALIKE/SOUND-ALIKE MEDICATION: Use caution and follow appropriate policies for medication prescribing, dispensing and administration. HYDROmorphone (DILAUDID) 0.5 mg/0.5 mL injection 0.5 mg 0.5 mg, Intravenous, Every 10 min PRN, moderate pain, Starting on Fri03/13/20 at 0849, 4 doses, Until Fri03/13/20 at 1731, PACU (only), To a max dose of 2 mg LOOK-ALIKE/SOUND-ALIKE MEDICATION: Use caution and follow appropriate policies for medication prescribing, dispensing and administration. lactated Ringers infusion 50 mL/hr, Intravenous, Continuous, Starting on Fri03/13/20 at 0745, Until Fri03/13/20 at 1731, Pre-op Restarted 03/13/2020 10:34 AM EST New Bag 03/13/2020 7:56 AM EST 50 mL/hr 50 mL/hr lactated Ringers infusion 75 mL/hr, Intravenous, Continuous, Starting on Fri03/13/20 at 0900, Until Fri03/13/20 at 1731, PACU (only) oxyCODONE (ROXICODONE) immediate release tablet 5 mg 5 mg, Oral, Once, On Fri03/13/20 at 0900, 1 dose, PACU (only), LOOK-ALIKE/SOUND-ALIKE MEDICATION: Use caution and follow appropriate policies for medication prescribing, dispensing and administration. Given 03/13/2020 1:21 PM EST 5 mg documented in this encounter Active and Recently Administered Medications Times are shown in EST. Scheduled Medication Order 03/11/2020 03/12/2020 03/13/2020 ceFAZolin in dextrose (iso-os) (ANCEF) bag 2 g 2 g, Intravenous, at 200 mL/hr, Once, On Fri03/13/20 at 0745, 1 dose, Pre-op, Cefazolin 2g premix, 100 ml bag, 200 ml/hr 0745 (Due) HYDROmorphone (DILAUDID) injection 1 mg 1 mg, Intravenous, Once, On Fri03/13/20 at 0900, 1 dose, PACU (only), LOOK-ALIKE/SOUND-ALIKE MEDICATION: Use caution and follow appropriate policies for medication prescribing, dispensing, and administration. 0900 (Due) oxyCODONE (ROXICODONE) immediate release tablet 5 mg (COMPLETED) 5 mg, Oral, Once, On Fri03/13/20 at 0900, 1 dose, PACU (only), LOOK-ALIKE/SOUND-ALIKE MEDICATION: Use caution and follow appropriate policies for medication prescribing, dispensing and administration. 1321 (Given - Provid er: Angela Robert - Comment: pacu dose) Continuous Medication Order 03/11/2020 03/12/2020 03/13/2020 lactated Ringers infusion 50 mL/hr, Intravenous, Continuous, Starting on Fri03/13/20 at 0745, Until Fri03/13/20 at 1731, Pre-op 0756 (New Bag - Prov ider: Caro Huitron RN)1033 (Paused - Provider: Berta Bernabe CRNA - Comment: Switch to gravity)1034 (Restarted - Provider: Berta Bernabe CRNA)1132 (Anesthesia Volume Adjustment - Provider: Berta Bernabe CRNA) lactated Ringers infusion 75 mL/hr, Intravenous, Continuous, Starting on Fri03/13/20 at 0900, Until Fri03/13/20 at 1731, PACU (only) 0900 (Due) PRN Medication Order 03/11/2020 03/12/2020 03/13/2020 Bupivacaine-EPINEPHrine PF (MARCAINE-PF w/EPI) 0.5 %-1:200,000 injection (CANCELED) As needed, Starting on Fri03/13/20 at 1157, Until Fri03/13/20 at 1217, Intra-op 1157 (Given - Provid er: Hema Rodriguez - Comment: left hip) haloperidol lactate (HALDOL) 5 mg/mL injection 1 mg 1 mg, Intravenous, Once as needed, nausea/vomiting (first line), Starting on Fri03/13/20 at 0849, 1 dose, Until Fri03/13/20 at 1731, PACU (only) HYDROmorphone (DILAUDID) 0.5 mg/0.5 mL injection 0.25 mg 0.25 mg, Intravenous, Every 10 min PRN, mild pain, Starting on Fri03/13/20 at 0849, 4 doses, Until Fri03/13/20 at 1731, PACU (only), To max dose of 1 mg LOOK-ALIKE/SOUND-ALIKE MEDICATION: Use caution and follow appropriate policies for medication prescribing, dispensing and administration. HYDROmorphone (DILAUDID) 0.5 mg/0.5 mL injection 0.5 mg 0.5 mg, Intravenous, Every 10 min PRN, moderate pain, Starting on Fri03/13/20 at 0849, 4 doses, Until Fri03/13/20 at 1731, PACU (only), To a max dose of 2 mg LOOK-ALIKE/SOUND-ALIKE MEDICATION: Use caution and follow appropriate policies for medication prescribing, dispensing and administration. sodium chloride 0.9 % irrigation solution (CANCELED) As needed, Starting on Fri03/13/20 at 1156, Until Fri03/13/20 at 1217, Intra-op 1156 (Given - Provid er: Hema Rodriguez) sterile water (IRRIGATION) irrigation solution (CANCELED) As needed, Starting on Fri03/13/20 at 1156, Until Fri03/13/20 at 1217, Intra-op 1156 (Given - Provid er: Hema Rodriguez - Comment: for tools) documented in this encounter Care Teams Doubling Machine Operator Relationship Specialty Start Date End Date Not In System, Provider JOSE RINALDI [id number] PCP - General 01/03/20 documented as of this encounter
--- OUTSIDE RECORDS SUMMARY | 2023-11-20 08:34 | XMS_ITS | Encounter Summary ---
Author Organization [facility] Address [address] [place] [address] Care Team Providers Care Reporting Developer Name Role Phone Not In System, Provider Primary Care Provider Un available Reason for Referral * Physical Therapy (Routine) - Closed Specialty Diagnoses / Procedures Referred By Bambi seals Referred To Contact Physical Therapy Diagnoses S/P hip replacement, left Shonda Robbins PA [address] [place] [address] [facility] - [address] [id number] Referral ID Status Reason Start Date Expiration Date V isits Requested Visits Authorized [id number] Closed Specialty Services Required 03/30/2020 09/26/2020 1 1 Reason for Visit * Reason Comments Follow-up left hip Encounter Details Date Type Department Care Team (Late st Contact Info) Description 03/30/2020 3:45 PM EST Office Visit [facility], [facility] [address] [place] [address] Shonda Robbins PA [address] [place] [address] S/P hip replacement, left (Primary Dx) Social History Tobacco Use [...] Concentration - - Weight 93 kg (205 lb) 03/30/2020 3:03 PM EST Height 175.3 cm (5' 9.02) 03/30/2020 3:03 PM ES T Body Mass Index 30.26 03/30/2020 3:03 PM EST documented in this encounter Progress Notes * MADINA Fajardo - 03/30/2020 3:45 PM EST Patient Name: Chico Mg Date of : 1950 POST-OP OFFICE VISIT - TOTAL HIP ARTHROPLASTY DIAGNOSIS: ICD-10-CM ICD-9-CM 1. S/P hip replacement, left Z96.642 V43.64 Ambulatory Referral to Physical Therapy SURGERY: Recent/Upcoming Surgeries Orthopedic Date Procedure Surgeon Laterality Status 03/13/2020 HIP, TOTAL ARTHROPLASTY Hema Rodriguez, Left Posted SUBJECTIVE: Chico Mg is a very pleasant 69 y.o. presenting for a first post-operative office visit following a ICD-10-CM ICD-9-CM 1. S/P hip replacement, left Z96.642 V43.64 Ambulatory Referral to Physical Therapy . Complaints of pain are minimum and improving. Some achiness, but minimal. Denies any fevers/chills or calf pain. Ambulates weight bearing as tolerated independently. Patient is gradually resuming activities of daily living and overall doing well with the post-op rehab regimen. ROS: All other systems reviewed negative and non-contributory. PHYSICAL EXAMINATION: A&O x3 and in good spirits LEFT HIP Incision site C/D/I. No erythema, excessive warmth or drainage Minor post-operative swelling is present in the hip and leg Mild tenderness to palpation around the operative site Full functional passive motion of the hip Ambulating WBAT Strength not tested NVI distally IMAGING:(ALL IMAGING WAS PERSONALLY REVIEWED AND READ BY MYSELF) XRAYS: WB, AP Pelvis, and AP/lateral views of the LEFT Hip show implants are well aligned and in satisfactory position. Bone/prosthetic interfaces are pristine and both the femoral and acetabular implants appear well fixed. Leg lengths and offset are approximately equal. No interval change from prior X-rays. ASSESSMENT: ICD-10-CM ICD-9-CM 1. S/P hip replacement, left Z96.642 V43.64 Ambulatory Referral to Physical Therapy Patient progressing well with the post op course. RECOMMENDATIONS / PLAN: 1. PHYSICAL THERAPY OUTPATIENT - Referral Generated 2. HOME EXERCISE PROGRAM 3. FOLLOW UP 4 WEEKS, NO NEW XRAYS NEEDED 4. Advised him to continue two more weeks of ASA MADINA Fajardo 03/30/2020 4:26 PM documented in this encounter Plan of Treatment Scheduled Referrals Name Type Priority Associated Diagnoses Order Schedule Ambulatory Referral to Physical Therapy Outpatient Referral Routine S/P hip replacement, left Ordered: 03/30/2020 documented as of this encounter Visit Diagnoses Diagnosis S/P hip replacement, left- Primary documented in this encounter Care Teams Reporting Developer Relationship Specialty Start Date End Date Not In System, Provider JOSE RINALDI [id number] PCP - General 01/03/20 documented as of this encounter
--- OUTSIDE RECORDS SUMMARY | 2023-11-20 08:34 | XMS_ITS | Encounter Summary ---
Author Organization [facility] Address [address] [place] [address] Care Team Providers Care Commercial Real Estate Appraiser Name Role Phone Not In System, Provider Primary Care Provider Un available Reason for Visit * Physical Therapy (Routine) - Closed Specialty Diagnoses / Procedures Referred By Bambi seals Referred To Contact Physical Therapy Diagnoses Primary osteoarthritis of left hip Shonda Robbins PA [address] [place] [address] Nph Tow Truck Operator [address] [place] [address] Referral ID Status Reason Start Date Expiration Date V isits Requested Visits Authorized [id number] Closed Specialty Services Required 01/12/2020 07/10/[phone] Encounter Details Date Type Department Care Team (Latest Contact Info) Description 03/01/2020 2:00 PM EST Clinical Support [facility] [address] [place] [address] Shonda Robbins PA [address] [place] [address] Marlon Steele, PT Localized osteoarthrosis of left hip (Primary Dx) Social History Tobacco Use Types [...] AM EST documented as of this encounter Progress Notes * Marlon Steele, PT - 03/01/2020 2:00 PM EST Physical Therapy Evaluation Patient Name: Chico Mg : 1950 Preferred Language: Palestinian Date of Service: 03/01/2020 Referral Diagnosis: Primary osteoarthritis of left hip Visit Diagnosis: 1. Localized osteoarthrosis of left hip Referring Physician: Shonda Robbins PA Insurance: Payor: MEDICARE / Plan: MEDICARE PART A AND B / Product Type: Medicare / Past Medical History: Diagnosis Date ??? Depression ??? Elevated serum cholesterol ??? MARK on CPAP Allergies Allergen Reactions ??? Prochlorperazine Other (See Comments) Muscle spasms Past Surgical History: Procedure Laterality Date ??? HIP ARTHROPLASTY Right [address] [place] [address] ??? KNEE ARTHROSCOPY ??? SPINE SURGERY L4-5 ??? TONSILLECTOMY ??? TRANSURETHRAL RESECTION OF PROSTATE Current Medications acetaminophen aspirin atorvastatin celecoxib FLUoxetine gabapentin omeprazole oxyCODONE polyethylene glycol Patient Active Problem List Diagnosis ??? Primary osteoarthritis of left hip Subjective History of Present Illness Chief Complaint: Pt is a 69 y.o. who presents today with a greater than six month history of severedebilitating pain of left hip. The onset of the pain was gradual but it has now increased to the point where it is present at all times and worsened with weight-bearing activity. . Pt saw orthopedic MD recently and had x-ray which revealed left hip OA and was scheduled for left THR on ??03/13/20 and referred to PT for prehab evaluation. Pain Current pain ratin At best pain ratin At worst pain ratin Pain location: Left hip, groing area and to the buttock area. Quality: sharp, dull ache and knife-like Exacerbated by: twisting left leg, walking and weight bearing activities.. Prolonged standing. Social Support Lives in: one-story house (4 steps with railing to get in to the house.) Lives with: significant other and adult children (room mate; room mate and adult son will help after the surgery) Diagnostic Tests X-ray: abnormal (left hip OA) Treatments Previous treatment: physical therapy and medication Patient Goals Patient goals for therapy: increased motion, decreased pain, return to sport/leisure activities andincreased strength Lower Extremity Functional Scale (LEFS) Usual work, housework, or school activities: 3 Usual hobbies, rec or sport activities: 4 Getting into/out of bath: 4 Walking between rooms: 4 Putting on shoes/socks: 3 Squattin Lifting an object from the floor: 4 Performing Light Activities: 4 Performing heavy activities: 2 Getting into/out of car: 4 Walking 2 blocks: 4 Walking a mile: 3 Going down 10 stairs: 4 Standing for 1 hour: 4 Sitting for 1 hour: 4 Running on even ground: 1 Running on uneven ground: 1 Making sharp turns while runnin Hoppin Rolling over in bed: 4 Total: 62 Objective Active Range of Motion Left Hip Flexion: WFL and with pain Extension: Left hip active extension: 8 degrees contracture. with pain Abduction: WFL and with pain External rotation (90/90): 35 degrees with pain Internal rotation (90/90): 2 degrees with pain Right Hip Normal active range of motion Left Knee Normal active range of motion Right Knee Normal active range of motion Strength/Myotome Testing Left Hip Planes of Motion Flexion: 4+ Extension: 5 Abduction: 4 Right Hip Planes of Motion Flexion: 5 Extension: 5 Abduction: 5 Left Knee Flexion: 5 Extension: 5 Right Knee Flexion: 5 Extension: 5 Ambulation Comments Pt ambulating without AD in all surfaces with mild to moderate in occasions antalgic gait with decreased stance on LLE. Treatment Interventions: Pt was instructed on gait training with bilateral loft strand crutches in level surfaces and stairs. Also instructed on HEP as preparation for THR. Rehab Plan of Care Assessment & Plan Assessment Impairments: abnormal gait, activity intolerance, impaired physical strength, lacks appropriate home exercise program, pain with function and weight-bearing intolerance Clinical Impression: Pt presents today for prehab evaluation with diagnosis of left hip OA and scheduled for THR on 03/13/20. He presents with pain on left hip mainly with weight bearing activities, but also with hip mobility which restricts his ROM. He also presents with some left hip weakness. All of these result in pt having difficulty walking, standing, anad performing house and community based activities. Pt will benefit from PT services for gait training with crutches and review of HEP today and he will benefit from continued PT services after surgery. Pt states he wants to go to outpatient PT post-op to another clinic that is closer to his home. Plan to keep chart open in case pt changes is mind. Prognosis: good Plan Planned modality interventions: (84155) Vasopneumatic Device Planned therapy interventions: (16947) Therapeutic Exercise, (54880) Gait Training and (01497) Casting Frequency: 2x week Duration in weeks: 12 Treatment plan discussed with: patient Goals ST weeks 1) Will receive and teach back HEP in preparation for surgical procedure coming up. Status:NEW 03/01/20 Comments: 2) Will be able to walk with crutches ( forearm ) in reciprocal manner on level surfaces and stairs without any safety concerns in preparation for surgery Status:NEW 03/01/20 Comments: 3) Increased ROM in surgical hip to normal for ADL's and community activity. Status:New 03/01/20 Comments: LTG's 12 weeks 1) Will be able to stand from sitting 10 times without use of hands and without pain, showing no compensations. Status:NEW 03/01/20 Comments: 2) Will be able to climb stairs with surgical leg leading with minimal to no discomfort and 1 or norail needed. Status: New 03/01/20 Comments: 3) Will be able to walk > 30 minutes without AD for health and leisure. Status: New 03/01/20 Comments: History: Patient has 3 or more personal factors or comorbidities that impact the plan of care: depression; Hx of back surgery; Hx of right THR 2018. Examination: of body systems using standardized tests and measures addresses 4 or more: decreased ROM and Strength, hip pain, abnormal gait . Presentation: is characterized by stable and/or uncomplicated characteristics. Decision- Making: is of low complexity using standardized patient assessment instrument and / or measurable assessment of functional outcome. Based upon above, PT low complexity evaluation code 12304 is appropriate. Patient Education: Date: 03/01/2020 Prepared by: Marlon Steele Exercises Supine Ankle Pumps - 20 reps - 1 sets - 5x daily - 7x weekly Supine Gluteal Sets - 10 reps - 2 sets - 3 hold - 2x daily - 7x weekly Supine Quadricep Sets - 10 reps - 2 sets - 3 hold - 2x daily - 7x weekly Supine Heel Slide - 10 reps - 2 sets - 3 hold - 2x daily - 7x weekly Supine Hip Abduction - 10 reps - 2 sets - 3 hold - 2x daily - 7x weekly Supine Bridge - 10 reps - 2 sets - 3 hold - 2x daily - 7x weekly Supine Hip Windshield Wipers - 20 reps - 1 sets - 2x daily - 7x weekly Hooklying Clamshell with Resistance - 10 reps - 2 sets - 3 hold - 2x daily - 7x weekly Clamshell - 10 reps - 2 sets - 3 hold - 2x daily - 7x weekly Seated Hip Adduction Isometrics with Ball - 10 reps - 2 sets - 3 hold - 2x daily - 7x weekly Seated March - 10 reps - 2 sets - 2x daily - 7x weekly Seated Long Arc Quad - 10 reps - 2 sets - 3 hold - 2x daily - 7x weekly Standing June with Counter Support - 10 reps - 2 sets - 1 hold - 2x daily - 7x weekly Standing Hip Abduction with Counter Support - 10 reps - 2 sets - 1 hold - 2x daily - 7x weekly Standing Hip Extension with Counter Support - 10 reps - 2 sets - 2x daily - 7x weekly Sit to Stand with Counter Support - 10 reps - 2 sets - 2x daily - 7x weekly Marlon Steele documented in this encounter Plan of Treatment Scheduled Referrals Name Type Priority Associated Diagnoses Orde r Schedule Ambulatory Referral to Physical Therapy Outpatient Referral Routine Primary osteoarthritis of left hip Ordered: 01/12/2020 documented as of this encounter Visit Diagnoses Diagnosis Localized osteoarthrosis of left hip- Primary documented in this encounter Care Teams Commercial Real Estate Appraiser Relationship Specialty Start Date End Date Not In System, Provider JOSE RINALDI [id number] PCP - General 01/03/20 documented as of this encounter
--- OUTSIDE RECORDS SUMMARY | 2023-11-20 08:34 | XMS_ITS | Encounter Summary ---
[place] [address] Care Team Providers Care Deck Steward Name Role Phone Benjamin Muhammad MD Primary Care Provider [phone] Encounter Details Date Type Department Care Team (Latest Contact Info) Description 02/20/2022 Travel Social History Tobacco Use Types Packs/Day [...] AM EST Office Visit Sleep Center at [address] [address] Corbin Epstein MD [facility] [place] [address] documented as of this encounter Visit Diagnoses Not on filedocumented in this encounter Care Teams Deck Steward Relationship Specialty Start Date End Date Benjamin Muhammad MD [address] [facility] [address] [place] [address] PCP - General Family Medicine 02/04/22 documented as of this encounter
--- OUTSIDE RECORDS SUMMARY | 2023-11-20 08:34 | XMS_ITS | Clinical Summary ---
Author Organization [facility] Address [address] [facility] [address] [facility] [place] [address] Care Team Providers Care Planer Off Bearer Name Role Phone Benjmain Muhammad MD Primary Care Provider [phone] Allergies Active Allergy Reactions Criticality Noted Date Comments Prochlorperazine 07/10/2015 Other reaction(s): MUSCLE SPASM Medications Medication Sig Dispensed Refills Start Date End Date Status FLUoxetine (PROzac) 40 mg Capsule Take 40 mg by mouth daily. 12/06/2021 Active atorvastatin (Lipitor) 10 mg Tablet Take 10 mg by mouth daily. 01/18/2022 Active Active Problems Problem Noted Date Diagnosed Date Benign prostatic hyperplasia with urinary obstru ction 02/20/2022 Hypercholesterolemia 02/20/2022 Sleep apnea 02/20/2022 Overview (02/20/2022): USES CPAP H/O bilateral hip replacements 02/20/2022 Encounters Date Type Department Care Team Description 10/27/2023 8:00 AM EDT [facility] [address] [place] [phone] Kacy Ha, RT MARK on CPAP 10/27/2023 Travel 10/26/2023 Travel 10/22/2023 Telephone [facility] [address] [place] [address] Shnanan Souza MD Other (Durable Medical Equipment) 10/10/2023 Telephone [facility] [address] [place] [address] Shannan Souza MD Other 10/09/2023 10:15 AM EDT Office Visit [facility] [address] [place] [address] Shannan Souza MD MARK on CPAP; Hypercholesterolemia 10/08/2023 Travel from Last 3 Months Social History Tobacco Use Types Packs/Day Years Used Date Smoking Tobacco: Never Smokeless Tobacco: Never Sex and Gender Information Value Date Recorded Sex Assigned at Not on file Gender Identity Not on file Sexual Orientation Not on file Last Filed Vital Signs Vital Sign Reading Time Taken Comments Blood Pressure 130/48 10/09/2023 9:38 AM EDT Pulse 95 10/09/2023 9:38 AM EDT Temperature - - Respiratory Rate - - Oxygen Saturation 96% 10/09/2023 9:38 AM EDT Inhaled Oxygen Concentration - - Weight 99.8 kg (220 lb) 10/09/2023 9:38 AM EDT R eported Height 172.7 cm (5' 8) 10/09/2023 9:38 AM EDT R eported Body Mass Index 33.45 10/09/2023 9:38 AM EDT Plan of Treatment Upcoming Encounters Date Type Department Care Team (Late st Contact Info) Description 03/10/2024 9:30 AM EST Office Visit [facility] [address] [place] [address] Corbin Epstein MD [facility] [place] [address] Health Maintenance Due Date Last Done Comments CT Colonography 1950 Colonoscopy 1950 Colorectal Cancer Screening 1950 FIT DNA 1950 FIT 1950 Sigmoidoscopy (10 year) with FIT yearly 1950 Sigmoidoscopy 1950 Hepatitis C Screening 1966 Tdap adult 1967 Tetanus vaccine 1967 Zoster vaccine (1 of 2) 1998 Advance Directive 2003 Pneumoccocal Vaccine: 65+ (1 of 1 - PCV) 2013 Covid-19 Vaccine (2022-24 season) 2022 Influenza (Flu) vaccine (1 o f 1 - Influenza standard series) 12/21/2023 Care Teams Planer Off Bearer Relationship Specialty Start Date End Date Benjamin Muhammad MD [address] [place], [place] [address] PCP - General Family Medicine 02/04/22
--- OUTSIDE RECORDS SUMMARY | 2023-11-20 08:34 | XMS_ITS | Encounter Summary ---
[place] [address] Care Team Providers Care Optician Manager Name Role Phone Benjamin Muhammad MD Primary Care Provider [phone] Encounter Details Date Type Department Care Team (Latest Contact Info) Description 10/26/2023 Travel Social History Tobacco Use Types Packs/Day [...] AM EST Office Visit Sleep Center at [address] [address] Corbin Epstein MD [facility] [place] [address] documented as of this encounter Visit Diagnoses Not on filedocumented in this encounter Care Teams Optician Manager Relationship Specialty Start Date End Date Benjamin Muhammad MD [address] [facility] [address] [place] [address] PCP - General Family Medicine 02/04/22 documented as of this encounter
--- OUTSIDE RECORDS SUMMARY | 2023-11-20 08:34 | XMS_ITS | Clinical Summary ---
Author Organization [facility] Address [address] [place] [address] Care Team Providers Care Reconciliation Coordinator Name Role Phone Not In System, Provider Primary Care Provider Un available Allergies Active Allergy Reactions Criticality Noted Date Comments Prochlorperazine Other (See Comments) Medium 7 Muscle spasms Medications Medication Sig Dispensed Refills Start Date End Date Status atorvastatin (LIPITOR) 10 MG tablet Take 10 mg by mouth once daily. 11/28/2019 Active FLUoxetine (PROZAC) 10 MG capsule Take 20 mg by mouth once daily. 11/30/2019 Active Active Problems Problem Noted Date Diagnosed Date Status post total hip replacement, left 06/21/19 21 History of total right hip arthroplasty 06/21/19 21 MARK on CPAP Resolved Problems Problem Noted Date Diagnosed Date Resolved Date Primary osteoarthritis of left hip 01/13/2020 03/30/2020 Overview: Added automatically from request for surgery [id number] Social History Tobacco Use Types Packs/Day Years [...] file Not on file Not on file Last Filed Vital Signs Vital Sign Reading Time Taken Comments Blood Pressure 105/54 03/13/2020 1:30 PM EST Pulse 68 03/13/2020 1:30 PM EST Temperature 36.2 ??C (97.2 ??F) 03/13/2020 12:[address] Respiratory Rate 15 03/13/2020 1:30 PM EST Oxygen Saturation 95% 03/13/2020 1:30 PM EST Inhaled Oxygen Concentration - - Weight 93 kg (205 lb 0.4 oz) 06/20/2020 3:20 PM EST Height 175.3 cm (5' 9) 06/20/2020 3:20 PM EST Body Mass Index 30.28 06/20/2020 3:20 PM EST Plan of Treatment Not on file Medical Devices Implanted Type Area Fire Control Officer Device Identifier Shelf Expiration Date Model / Serial / Lot Trident Ii Tritanium Clusterhole 54e - [id number] Implanted:Qty: 1 on 03/13/2020 by Hema Rodriguez MD at [facility] Left: Hip [employer] [id number] 01/17/2025 702-04-54 E / / [id number] 6.5mm Low Profile Hex Screw 20mm - [id number] Implanted:Qty: 1 on 03/13/2020 by Hema Rodriguez MD at [facility] Left: Hip [employer] [id number] 05/31/2024 8045-6254 / / [id number] 6.5mm Low Profile Hex Screw 25mm - [id number] Implanted:Qty: 1 on 03/13/2020 by Hema Rodriguez MD at [facility] Left: Hip [employer] [id number] 11/01/2024 [id number] / / [id number] Trident 0x3 Insert 36mm Id - [id number] Implanted:Qty: 1 on 03/13/2020 by Hema Rodriguez MD at [facility] Left: Hip [employer] [id number] 01/15/2025 623-00-36 E / / [id number] Size 4 Accolade Ii 127 Deg - [id number] Implanted:Qty: 1 on 03/13/2020 by Hema Rodriguez MD at [facility] Left: Hip [employer] [id number] 01/17/2025 [id number] / / [id number] V-40 Ceramic Head 360 - [id number] Implanted:Qty: 1 on 03/13/2020 by Hema Rodriguez MD at [facility] Left: Hip [employer] [id number] 02/06/2025 6570-0-13 6 / / [id number] Care Teams Reconciliation Coordinator Relationship Specialty Start Date End Date Not In System, Provider JOSE RINALDI [address] PCP - General 01/03/20
--- OUTSIDE RECORDS SUMMARY | 2023-11-20 08:34 | XMS_ITS | Encounter Summary ---
Author Organization [facility] Address [address] [facility] [place] [address] Care Team Providers Care Survey And Mapping Technician Name Role Phone Benjamin Muhammad MD Primary Care Provider [phone] Encounter Details Date Type Department Care Team (Late st Contact Info) Description 10/27/2023 8:00 AM EDT Office Visit Sleep Center at [facility] [address] [place] [address] Kacy Ha, RT MARK on CPAP Social History Tobacco Use Types Packs/Day Years Used Date Smoking Tobacco: Never Smokeless Tobacco: Never Sex and Gender Information Value Date Recorded Sex Assigned at Not on file Gender Identity Not on file Sexual Orientation Not on file documented as of this encounter Progress Notes * Kacy Ha, RT - 10/27/2023 8:00 AM EDT Sleep Medicine Clinical Health Specialist Desensitization/Mask Fit Clinic note: HPI: Mr. Mg is a 73 year old male with obstructive sleep apnea, here for mask fitting/ desensitization clinic. Mr. Mg reports putting mask on and feels like he is being suffocated a little bit Interface (s) used: AirFit F30i- pt using small cushion, fit into medium AirFit P30i- medium pillows PAP pressures used: 11 cm H20 8 cm H20 4 cm H20- ramp pressure PAP equipment/interfaces reviewed: AirFit F30i medium cushion AirFit P30i medium pillows Patient Response: Mr. Mg really likes his full face mask and is used to it, reports the problem is he feels likehis nose is blocked and he can't get enough air, and the mask leaks a lot around by his mouth. Patient was using small cushion. Fit patient into a medium cushion, this felt better to patient. The other thing we changed was the ramp, we changed it from 4 cm H20 to start at 8 cm H20. Mr. Mg stated that it was easier for him to breath in the full face mask than it had before. Patient wanted to try on nasal pillows, fit into P30i, reported that it was more difficult to breath, and it was uncomfortable, and prefers the full face, but will take the pillows home just to try out. Physical Exam: No issues Time spent face to face: 30 Min. Reccomendations: Try P30i at home to the pillows are preferred over full face mask. Try the Medium F30i cushion, if this fits better and there are less issues we can send an rx to DMEfor change in size. The patient indicates understanding of these issues and agrees with the plan. documented in this encounter Plan of Treatment Upcoming Encounters Date Type Department Care Team (Late st Contact Info) Description 03/10/2024 9:30 AM EST Office Visit Sleep Center at [facility] [address] [place] [address] Corbin Epstein MD [facility] [place] [address] documented as of this encounter Visit Diagnoses Diagnosis MARK on CPAP Obstructive sleep apnea (adult) (pediatric) documented in this encounter Care Teams Survey And Mapping Technician Relationship Specialty Start Date End Date Benjamin Muhammad MD [address] [place] [address] PCP - General Family Medicine 02/04/22 documented as of this encounter
--- OUTSIDE RECORDS SUMMARY | 2023-11-20 08:34 | XMS_ITS | Encounter Summary ---
[place] [address] Care Team Providers Care Building Consultant Name Role Phone Benjamin Muhammad MD Primary Care Provider [phone] Reason for Visit * Reason Onset Date Comments Other 10/10/2023 Encounter Details Date Type Department Care Team (Late st Contact Info) Description 10/10/2023 Telephone Sleep Center at [address] [address] [facility] [address] [facility] [address] Other Social History Tobacco Use Types Packs/Day Years Used Date Smoking Tobacco: Never Smokeless Tobacco: Never Sex and Gender Information Value Date Recorded Sex Assigned at Not on file Gender Identity Not on file Sexual Orientation Not on file documented as of this encounter Miscellaneous Notes * Telephone Encounter - Chuck Chaney - 10/10/2023 10:23 AM EDT Message: Patient called and stated he was able to remember the name of the previous company he usedto receive supplies from. Patient stated it was [employer]. Patient stated provider is trying to attain information that Brian is not being forthcoming with and the name of the company should be useful. Ask caller their first and last name and relationship to the patient: Patient Phone: Best time to call back: any Ok to leave a message: yes Ok to send - message: no Offered Appointment: n/a MA/Nurse/[place] contacted via:message Message: yes Call: no Pager: [phone] documented in this encounter Plan of Treatment Upcoming Encounters Date Type Department Care Team (Late st Contact Info) Description 03/10/2024 9:30 AM EST Office Visit Sleep Center at [facility] [address] [place] [address] [facility] [address] [facility] [address] documented as of this encounter Visit Diagnoses Not on filedocumented in this encounter Care Teams Building Consultant Relationship Specialty Start Date End Date Benjamin Muhammad MD [address] [place] [address] PCP - General Family Medicine 02/04/22 documented as of this encounter
--- OUTSIDE RECORDS SUMMARY | 2023-11-20 08:34 | XMS_ITS | Encounter Summary ---
Author Organization [facility] [place] [address] Care Team Providers Care Management Accounts Manager Name Role Phone Benjamin Muhammad MD Primary Care Provider [phone] Reason for Referral * Consultation (Routine) - Closed Specialty Diagnoses / Procedures Referred By Contmark t Referred To Contact Sleep Center Diagnoses MARK (obstructive sleep apnea) Benjamin Muhammad MD [address] [place] [address] Rosi Jon MD [facility] [place] [address] Referral ID Status Reason Start Date Expiration Date V isits Requested Visits Authorized [id number] Closed Consult, Test & Treat PCP Updated and/or Approved 04/08/2023 10/17/2023 6 6 Encounter Details Date Type Department Care Team (Latest Contact Info) Description 04/29/2023 Transcribe Orders eDH Incoming Referrals [phone] Benjamin Muhammad MD [address] [place] [address] MARK (obstructive sleep apnea) Social History Tobacco Use Types Packs/Day Years [...] AM EST Office Visit Sleep Center at [facility] [address] [place] [address] Corbin Epstein MD [facility] [place] [address] Scheduled Referrals Name Type Priority Associated Diagnoses Orde r Schedule Referral to Sleep Disorders Center Outpatient Referral Routine MARK (obstructive sleep apnea) Ordered: 04/29/2023 documented as of this encounter Visit Diagnoses Diagnosis MARK (obstructive sleep apnea) Obstructive sleep apnea (adult) (pediatric) documented in this encounter Care Teams Management Accounts Manager Relationship Specialty Start Date End Date Benjamin Muhammad MD [address] [place] [address] PCP - General Family Medicine 02/04/22 documented as of this encounter
--- OUTSIDE RECORDS SUMMARY | 2023-11-20 08:34 | XMS_ITS | Encounter Summary ---
Author Organization [facility] Address [address] [place] [address] Care Team Providers Care Client Care Specialist Name Role Phone Not In System, Provider Primary Care Provider Un available Encounter Details Date Type Department Care Team (Late st Contact Info) Description 03/01/2020 3:15 PM EST Clinical Support [facility], [facility] [address] [place] [address] Diana Sotelo, YODIT [address] [place] [address] Social History Tobacco Use Types Packs/Day Years [...] as of this encounter Progress Notes * Diana Sotelo RN - 03/01/2020 3:15 PM EST Patient Chico Mg viewed Total Joint Replacement Orientation, during which time the following items were reviewed: 1. Preparing for Surgery -Medical Preparation -Home safety preparation/ recommended modifications -Acquisition of medical equipment -Review of community resources 2. Pre-Op CHG shower instructions, infection prevention 3. [facility] to bring to [facility] 4. Call surgeon or total joint center with questions leading up to surgery. 5. Pre-Op Care including Pre-Op Pain Management and Provider Roles 6. Recovery care including possibility of overnight stay 7. Inpatient Care including - Rapid mobilization by RN or PT on POD 0 - Pain Management, including on time and prn pain medication - DVT prevention, including Foot pumps, blood thinner, and frequent mobilization - Bladder Management - Bowel Monitoring/ Management - Preventing falls, including calling for assistance in restroom. - PT and OT visits during hospital stay. (PT One or Two times daily, based on need, OT daily as needed) - Discharge planning, including role of Raw Stock Machine Feeder and basis for DC Recommendations 8. Brief description of Home Care Services and Group Home care 9. Brief description of responsibility of patient's support person 9. 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 Total Time: 1 hour documented in this encounter Plan of Treatment Not on file documented as of this encounter Visit Diagnoses Not on filedocumented in this encounter Care Teams Client Care Specialist Relationship Specialty Start Date End Date Not In System, Provider JOSE RINALDI [id number] PCP - General 01/03/20 documented as of this encounter
--- OUTSIDE RECORDS SUMMARY | 2023-11-20 08:34 | XMS_ITS | Encounter Summary ---
Author Organization [facility] [place] [address] Care Team Providers Care Yard Jockey Name Role Phone Benjamin Muhammad MD Primary Care Provider [phone] Reason for Visit * Reason Onset Date Comments Other 10/22/2023 Durable Medical Equipment Encounter Details Date Type Department Care Team (Late st Contact Info) Description 10/22/2023 Telephone Sleep Center at [address] [address] Shannan Souza MD [facility] [place] [address] Other (Durable Medical Equipment) Social History Tobacco Use Types Packs/Day Years Used Date Smoking Tobacco: Never Smokeless Tobacco: Never Sex and Gender Information Value Date Recorded Sex Assigned at Not on file Gender Identity Not on file Sexual Orientation Not on file documented as of this encounter Miscellaneous Notes * Telephone Encounter - Ita Laws - 10/22/2023 8:10 AM EDT Message: Patient called stating he has not yet received his new machine and has not heard back fromthe company. Patient asked if his appointment scheduled for 10/27/23 is related to the new machine. Please call patient to discuss further. Patient Name: Chico Rapp Haritha Callers Name: Patient Patient : 1950 Name of DME: [facility] Care DME DME Fax Number: n/a If requesting to switch DME, name of the DME the would the Patient like to switch to: n/a New DME phone number: n/a New DME fax number: n/a documented in this encounter Plan of Treatment Upcoming Encounters Date Type Department Care Team (Late st Contact Info) Description 03/10/2024 9:30 AM EST Office Visit Sleep Center at [facility] [address] [place] [address] Corbin Epstein MD [facility] [place] [address] documented as of this encounter Visit Diagnoses Not on filedocumented in this encounter Care Teams Yard Jockey Relationship Specialty Start Date End Date Benjamin Muhammad MD [address] [place] [address] PCP - General Family Medicine 02/04/22 documented as of this encounter
--- OUTSIDE RECORDS SUMMARY | 2023-11-20 08:34 | XMS_ITS | Encounter Summary ---
Author Organization [facility] Address [address] [place] [address] Care Team Providers Care Freight Engineer Name Role Phone Not In System, Provider Primary Care Provider Un available Encounter Details Date Type Department Care Team (Latest Contact Info) Description 03/01/2020 11:04 AM EST - 03/01/2020 11:59 PM EST Hospital Encounter [facility] [address] [place] [address] Shonda Robbins PA [address] [place], [place] [id number] Discharge Disposition: Home or Self Care Social [...] Name Priority Date/Time Associated Diagnosis Comments X-RAY HIP LEFT W PELVIS 2-3 VIEWS Routine 03/01/2020 11:22 AM EST Primary osteoarthritis of left hip documented in this encounter Results * X-Ray Hip Left W Pelvis 2-3 Views (03/01/2020 11:22 AM EST) Anatomical Region Laterality Modality Radiographic Steph ging Impressions 03/01/2020 11:45 AM EST IMPRESSION: Standard alignment of right total hip arthroplasty, moderate left hip osteoarthritis. RADCAT Grade:RADCAT2: Routine result. Signing Doctor: Nicolas Yao MD ?Date Signed:03/01/2020 11:45 AM Patient ? DOS:03/01/2020 11:11 AM ?Exam:[id number] X-RAY HIP LEFT W PELVIS 2-3 VIEWS Narrative 03/01/2020 11:45 AM EST X-RAY HIP LEFT W PELVIS 2-3 VIEWS HISTORY: Unilateral primary osteoarthritis, left hip; LEFT HIP: PREOP EXAM W/ MARKER TECHNIQUE: 1 view of the pelvis and 2 views of the left hip were acquired. COMPARISON: 01/12/2020. FINDINGS: Standard alignment of right total hip arthroplasty without evidence of hardware complication or fracture. Moderate left hip osteoarthritis. Lumbar spondylosis. No fracture or osseous lesion. Procedure Note Nicolas Yao MD - 03/01/2020 X-RAY HIP LEFT W PELVIS 2-3 VIEWS HISTORY: Unilateral primary osteoarthritis, left hip; LEFT HIP: PREOP EXAMW/ MARKER TECHNIQUE: 1 view of the pelvis and 2 views of the left hip wereacquired. COMPARISON: 01/12/2020. FINDINGS: Standard alignment of right total hip arthroplasty without evidence ofhardware complication or fracture. Moderate left hip osteoarthritis.Lumbar spondylosis. No fracture or osseous lesion. IMPRESSION: Standard alignment of right total hip arthroplasty, moderate left hiposteoarthritis. RADCAT Grade:RADCAT2: Routine result. Signing Doctor: Nicolas Yao MD Date Signed:03/01/2020 11:45AM Patient DOS:03/01/2020 11:11 AM Exam:[id number] X-RAY HIP LEFT W PELVIS 2-3VIEWS [facility] IMG DIAGNOSTIC IMAGI NG ORDERABLES documented in this encounter Visit Diagnoses Not on filedocumented in this encounter Care Teams Freight Engineer Relationship Specialty Start Date End Date Not In System, Provider JOSE RINALDI [id number] PCP - General 01/03/20 documented as of this encounter
--- OUTSIDE RECORDS SUMMARY | 2023-11-20 08:34 | XMS_ITS | Encounter Summary ---
Author Organization [facility] Address [address] [place] [address] Care Team Providers Care Fisher Pot Name Role Phone Not In System, Provider Primary Care Provider Un available Reason for Visit * Reason Comments Post-op left hip Encounter Details Date Type Department Care Team (Late st Contact Info) Description 06/20/2020 3:45 PM EST Office Visit [facility], [facility] [address] [place] [address] Shonda Robbins PA [address] [place] [address] Status post total hip replacement, left (Primary Dx); History of total right hip arthroplasty Social History Tobacco Use Types Packs/Day Years [...] have Coronavirus / COVID-19? No / Unsure 06/20/2020 2:56 PM EST documented as of this encounter Last [...] Mass Index 30.28 06/20/2020 3:20 PM EST documented in this encounter Progress Notes * MADINA Fajardo - 06/20/2020 3:45 PM EST Patient Name: Chico Mg Date of : 1950 POST-OP OFFICE VISIT: TOTAL HIP ARTHROPLASTY DIAGNOSIS: ICD-10-CM ICD-9-CM 1. Status post total hip replacement, left Z96.642 V43.64 2. History of total right hip arthroplasty Z96.641 V43.64 SURGERY: Recent/Upcoming Surgeries Orthopedic Date Procedure Surgeon Laterality Status 03/13/2020 HIP, TOTAL ARTHROPLASTY Hema Rodriguez, Left Posted SUBJECTIVE: Chico is a very pleasant, active 70 y.o. who presents for a postoperative visit s/p ICD-10-CM ICD-9-CM 1. Status post total hip replacement, left Z96.642 V43.64 2. History of total right hip arthroplasty Z96.641 V43.64 . Reports minimal discomfort in regards to the Left Hip. Progressing well with at home exercises. Ambulating independently. Has resumed ADLs. Overall, progressing very well. ROS: Reviewed per intake sheet. All other systems reviewed negative and non- contributory. Unchangedsince last encounter, unless noted above. PHYSICAL EXAMINATION: A&O x3 and in good spirits; well-groomed, well-nourished Normal coordination. Speaks articulately with normal affect. LEFT HIP: Surgical incision well healed; clean, dry, intact No erythema, excessive warmth or drainage No post-operative swelling is present in the hip and leg No tenderness to palpation around the operative site Full functional hip range of motion. 5-/5 strength in hip abductors and flexors Ambulates independently +NVI Distally IMAGING:(ALL IMAGING WAS PERSONALLY REVIEWED AND READ BY MYSELF) XRAYS of the Pelvis and AP/Lateral of the LEFT Hip show intact prosthesis without signs of hardwarefailure. No appreciable changes since last x-ray. Right JEAN PAUL intact. ASSESSMENT: ICD-10-CM ICD-9-CM 1. Status post total hip replacement, left Z96.642 V43.64 2. History of total right hip arthroplasty Z96.641 V43.64 - patient has progressed very well with the postop course RECOMMENDATIONS / PLAN: 1. HOME EXERCISES/PT 2. TYLENOL/NSAIDS PRN FOR PAIN 3. DENTAL PPX ABX DISCUSSED - We recommend patient's take an antibiotic 1 hour prior to any scheduled dental procedure for 2-years post-operatively. We are able to prescribe the antibiotic. 4. F/U PRN WITH NEW X-RAYS. WE RECOMMEND CHICO GET XRS OF B/L HIPS EVERY 1-2 YEARS FOR POST-OP SURVEILLANCE MADINA Fajardo 06/20/2020 4:13 PM documented in this encounter Plan of Treatment Not on file documented as of this encounter Visit Diagnoses Diagnosis Status post total hip replacement, left- Primary History of total right hip arthroplasty documented in this encounter Care Teams Fisher Pot Relationship Specialty Start Date End Date Not In System, Provider JOSE RINALDI [id number] PCP - General 01/03/20 documented as of this encounter
--- OUTSIDE RECORDS SUMMARY | 2023-11-20 08:34 | XMS_ITS | Encounter Summary ---
Author Organization [facility] Address [address] [place] [address] Care Team Providers Care Hand Cooper Helper Name Role Phone Not In System, Provider Primary Care Provider Un available Encounter Details Date Type Department Care Team (Latest Contact Info) Description 03/30/2020 2:40 PM EST - 03/30/2020 11:59 PM EST Hospital Encounter [facility] [address] [place] [address] Shonda Robbins PA [address] [place] [address] Status post total hip replacement, left Discharge Disposition: Home or Self Care Social [...] 20 mg by mouth once daily. 11/30/2019 documented as of this encounter Plan of Treatment Not on file documented as of this encounter Procedures Procedure Name Priority Date/Time Associated Diagnosis Comments X-RAY HIP LEFT W PELVIS 2-3 VIEWS Routine 03/30/2020 2:55 PM EST Status post total hip replacement, left documented in this encounter Results * X-Ray Hip Left W Pelvis 2-3 Views (03/30/2020 2:55 PM EST) Anatomical Region Laterality Modality Radiographic Steph ging Impressions 03/30/2020 2:59 PM EST IMPRESSION: 1. Expected postsurgical changes related to bilateral total hip arthroplasties, intact in appearance. RADCAT Grade:RADCAT2: Routine result. Signing Doctor: Yann De Leon MD ?Date Signed:03/30/2020 2:59 PM Patient ? DOS:03/30/2020 2:42 PM ?Exam:[id number] X-RAY HIP LEFT W PELVIS 2-3 VIEWS Narrative 03/30/2020 2:59 PM EST X-RAY HIP LEFT W PELVIS 2-3 VIEWS HISTORY: Presence of left artificial hip joint; pain TECHNIQUE: 1 view of the pelvis and 2 views of the left hip were acquired. COMPARISON: 03/13/2020 FINDINGS: There has been bilateral total hip arthroplasties. The hardware is intact, unremarkable in alignment. There is no hardware loosening or evidence of an acute osseous fracture. Degenerative disc disease of the lower lumbar spine is present. The soft tissues appear normal. Procedure Note Yann De Leon MD - 03/30/2020 X-RAY HIP LEFT W PELVIS 2-3 VIEWS HISTORY: Presence of left artificial hip joint; pain TECHNIQUE: 1 view of the pelvis and 2 views of the left hip wereacquired. COMPARISON: 03/13/2020 FINDINGS: There has been bilateral total hip arthroplasties. The hardware is intact,unremarkable in alignment. There is no hardware loosening or evidence ofan acute osseous fracture. Degenerative disc disease of the lower lumbarspine is present. The soft tissues appear normal. IMPRESSION: 1. Expected postsurgical changes related to bilateral total hiparthroplasties, intact in appearance. RADCAT Grade:RADCAT2: Routine result. Signing Doctor: Yann De Leon MD Date Signed:03/30/2020 2:59 PM Patient DOS:03/30/2020 2:42 PM Exam:[id number] X-RAY HIP LEFT W PELVIS 2-3VIEWS [facility] NG ORDERABLES documented in this encounter Visit Diagnoses Diagnosis Status post total hip replacement, left documented in this encounter Care Teams Hand Cooper Helper Relationship Specialty Start Date End Date Not In System, Provider JOSE RINALDI [id number] PCP - General 01/03/20 documented as of this encounter
--- OUTSIDE RECORDS SUMMARY | 2023-11-20 08:34 | XMS_ITS | Encounter Summary ---
Author Organization [facility] Address [address] [place] [address] Care Team Providers Care Alemite Operator Name Role Phone Not In System, Provider Primary Care Provider Un available Encounter Details Date Type Department Care Team (Latest Contact Info) Description 03/01/2020 1:00 PM EST Pre-Admission Testing [facility] Pre Admission Testing [address] [place] [address] Hema Rodriguez MD [address] [place] [address] Screening for viral disease (Primary Dx); Weakness present ; Primary osteoarthritis of left hip; Pain and swelling of lower extremity, left ; Preop examination Social History Tobacco Use Types Packs/Day Years [...] Sign Reading Time Taken Comments Blood Pressure 120/60 03/01/2020 11:13 AM EST Pulse 64 03/01/2020 11:13 AM EST Temperature - - Respiratory Rate 16 03/01/2020 11:13 AM EST Oxygen Saturation 99% 03/01/2020 11:13 AM EST Inhaled Oxygen Concentration - - Weight - - Height 175.3 cm (5' 9) 03/01/2020 10:37 AM EST Body Mass Index - - documented in this encounter Miscellaneous Notes * Pre-Procedure Instructions - Elis Carty RN - 03/01/2020 1:00 PM EST Reviewed NPH PAT Pre operative instructions and Teaching Guide with pt, la nena VILA. [facility] PRE-ADMISSION TESTING PRE-OPERATIVE INSTRUCTIONS & TEACHING GUIDE Please enter the Hospital at the [facility] entrance, and report to the surgical Services Earth Moving Technician Desk on the second floor of the [facility]. Date: Time The telephone number where you can be reached in the event of a time change with your surgery: PATIENT INSTRUCTIONS: I. The day before your surgery: ??? If you develop a fever, rash, or chest cold, please call your doctor. He/she may wish to postpone your surgery. ??? DO NOT EAT anything after 12 midnight unless otherwise instructed by your physician. YOU MAY HAVE CLEAR LIQUIDS UP TO 4 HOURS prior to your scheduled surgery time. Receiving anesthesia may cause nausea and vomiting while unconscious; therefore, it is essential not to ingest food or fluids priorto surgery. ??? Do not drink alcoholic beverages for at lest 24 hours before/after your surgery. Avoid smoking for at least 48 hours before your surgery. If necessary, contact your Physician to discuss the need for a nicotine patch II. The morning of your surgery; ??? Take a shower before coming to the hospital. Shower with Betasept twice if instructed. ??? You should brush your teeth and rinse your mouth, being careful not to swallow the water or mouthwash. ??? If you are currently taking any routine medications for your heart, blood pressure, glaucoma, thyroid replacement, or seizures, you may take these on the day of surgery with a small sip of water,unless otherwise instructed by your physician. Other instructions: ??? If you use an inhaler, please bring it with you on the day of your procedure. ??? If you are a diabetic, consult your Physician regarding medication doses for the day of your procedure. ??? If your are currently taking anti-inflammatory or blood thinner medications, contact your Physician to discuss whether you should discontinue these prior to surgery. ??? If you were unable to provide a list of your current medications today, please bring a list with you on the day of your procedure. ??? It is not necessary for you to bring any other medications with you to the hospital. ??? Remove all jewelry (including body piercings). Money and any other valuables should be left at home. ??? Wear comfortable clothing that is easy to take off. ??? Please do not wear make-up or use any body lotion. ??? You will be asked to remove dentures, partial plates, contact lenses, or any prosthesis prior to surgery. ??? Once in the Ambulatory Surgery Unit, you will be asked to: a) Urinate before you change clothes b) Dress in a Brad (hospital gown), remove all undergarments/socks. ??? An intravenous (IV) line will be started once you have put on a hospital gown and are lying on the stretcher. III. ANESTHESIA INTERVIEW: Prior to your surgery, your Anesthesiologist will meet with you. Please discuss any concerns or questions you may have with him/her. IV. SURGICAL PREPARATION: Depending on the type of surgery/procedure you are scheduled for , skin preparation or bowel preparation may be necessary. * Skin prep may include, shaving of the surgical area, cleansing the surgical area with a special antiseptic soap. Bowel prep may include, Laxatives/enemas/clear liquid diet before surgery. V. POST ANESTHESIA CARE UNIT: RECOVERY AREA: After your surgery you will be awakened , by an RN calling your name. You are now in the Post-Anesthesia Care Unit. You will be placed on a monitor and have a blood pressure cuff and oximeter attached to your finger. You may have a mask on your face to provide oxygen. . TRANSFER TO YOUR ROOM. When the nurses and your anesthesiologist feel that you are ready to leave the Post-Anesthesia Care Unit, you will be transferred to your room. Any personal belongings you brought with you will be sent to your room. VII. POST- OPERATIVE EXERCISE: Listed below are some suggestions to speed your recovery: ??? Deep Breathing Exercise- Helps to expand the lungs, promotes circulation, and helps to prevent pneumonia. Place bed in an upright position -if possible, or sit in a chair if approved by your Physician. Place your hand lightly on your abdomen. Breathe in slowly through your nose letting the chest expand and feeling your abdomen rise against your hand. Hold your breath for 3 seconds. Exhale slowly through pursed lips. Repeat three times, and then cough. Perform deep breathing exercise every hour while awake. ??? Coughing- Helps to clear blocked airways of mucous or secretions that may accumulate in the lungs during surgery. Place a small pillow over the area of our incision (if you have any type of abdominal or chest surgery). Hold firmly in place. Count to three. On 3 cough deeply 3 times. If unable to cough deeply, try the Saucedo cough. Saucedo repeatedly as you exhale, until all of the air in your lungs has been expelled. Repeat every hour while awake. ??? Leg Exercise - Helps to improve circulation and maintain muscle strength in the legs. Your Physician may order elastic stockings called TEDS. These stockings help to improve circulation in the legs. They will feel snug. Lie in bed on your back. Point toes toward the end of your bed- hold for 2 seconds. Now bring toes forward toward the head of your bed (flex) - hold for 2 seconds. Repeat x 2.Perform every hour while awake. Your cooperation is required for your safety and comfort. If you have any questions pertaining to your care, please do not hesitate to call us at [facility], [phone], Friday through Friday, 0730 a.m. to 6 p.m. I certify that I understand the above instructions and will follow them: Signature of patient, parent or legal guardian Date Time Relationship to patient Patient response to teaching: verbalizes understanding Yes No Needs Reinforcement Yes No N/A (Note Reason) Pre operative Instructions given by: Date [phone] Rev 02/28 PRE-ADMISSION TESTING PRE-OPERATIVE INSTRUCTIONS & TEACHING GUIDE Pt instructed to take tylenol 1000 mg 3 times a day every 8 hrs the day before surgery and 1000 mg the morning of surgery COVID SCREEN: -Do you have a fever, cold, cough, sore throat, or any other respiratory illness? -Do you have chills, headache, or muscle pain? -Do you have loss of smell, reduced ability to smell or detect odors, or a reduced or distorted sense of taste? -Have you ever tested positive for COVID in the last 14 days? -Have you had contact in the last 14 days with a person who has test positive for the virus, is currently being tested, or has been placed on home quarantine by the Department of Health? Pt denies all. documented in this encounter Plan of Treatment Not on file documented as of this encounter Procedures Procedure Name Priority Date/Time Associated Diagnosis Comments PREADMISSION TESTING NASAL SCREEN,PCR Routine 03/01/2020 11:45 AM EST Primary osteoarthritis of left hip X-RAY HIP LEFT W PELVIS 2-3 VIEWS Routine 03/01/2020 11:22 AM EST Primary osteoarthritis of left hip NASAL SCREEN STAPH AND MRSA PREOP Routine 03/01/2020 11:20 AM EST ECG 12-LEAD Routine 03/01/2020 10:51 AM EST Primary osteoarthritis of left hip CBC WITH DIFF AND PLATELET Routine 03/01/2020 10:45 AM EST Pain and swelling of lower extremity, left Primary osteoarthritis of left hip PROTHROMBIN TIME Routine 03/01/2020 10:4 5 AM EST Pain and swelling of lower extremity, left Primary osteoarthritis of left hip COMPREHENSIVE METABOLIC PANEL Routine 03/01/2020 10:45 AM EST Weakness present Primary osteoarthritis of left hip documented in this encounter Results * COVID-19, PCR (03/10/2020 10:02 AM EST) SARS-CoV-2 Not Detected Not Detected 03/10/2020 5:03 PM EST Comment: The 2019-CoV instrument maker and repairer-PCR Assay is only for use under a Food and Drug Administration Emergency Use Authorization. The performance characteristics of the assay were verified by the Clinical Microbiology Laboratory at [facility]. Results should be used in conjunction with the patient? s clinical symptoms, medical history and other clinical/laboratory findings to determine an overall clinical diagnosis. Negative results do not preclude infection with SARS-CoV-2. Test parameters have not been validated for screening in asymptomatic patients. SARS-CoV-2 COMMENT Footnote 2019 5:03 PM EST Comment: Test Performed by: [facility] [address] [address] Nasopharyngeal 03/10/2020 10 :02 AM EST 03/10/2020 10:02 AM EST Hema Rodriguez MD BODY FLUIDS AND STOO LS ORDERABLES Performing Organization Address City/[facility] Co de Phone Number [facility] [address] [place] [address] * Preoperative Nasal Screen for MRSA and MSSA,PCR (03/01/2020 11:45 AM EST) Staphylococcus aureus DNA NOT_PERFO RMED 03/01/2020 11:23 AM EST Comment:refer to nasal cultu re Methicillin-Resist ant Staph aureus DNA NOT_PERFO RMED 03/01/2020 11:23 AM EST Invalid Nasal Screen Comment NOT_PERFO RMED 03/01/2020 11:23 AM EST Nares 03/01/2020 11:4 5 AM EST 03/01/2020 11:22 AM EST Shonda PAINTER MICROBIOLOGY - GENER AL ORDERABLES Performing Organization Address [facility] Co de Phone Number [facility] [address] [place] [address] * X-Ray Hip Left W Pelvis 2-3 Views (03/01/2020 11:22 AM EST) Anatomical Region Laterality Modality Radiographic Steph ging Impressions 03/01/2020 11:45 AM EST IMPRESSION: Standard alignment of right total hip arthroplasty, moderate left hip osteoarthritis. RADCAT Grade:RADCAT2: Routine result. Signing Doctor: Nicolas Yao MD ?Date Signed:03/01/2020 11:45 AM Patient ? DOS:03/01/2020 11:11 AM ?Exam:[id number] X-RAY HIP LEFT W PELVIS 2-3 VIEWS [...] Date Signed:03/01/2020 11:45AM Patient DOS:03/01/2020 11:11 AM Exam:[id number] X-RAY HIP LEFT W PELVIS 2-3VIEWS Shonda PAINTER IMG DIAGNOSTIC IMAGI NG ORDERABLES * Nasal Screen Staph and MRSA Preop (03/01/2020 11:20 AM EST) Nasal Culture No Staph aureus Isolated Nasal 03/01/2020 11:2 0 AM EST 03/01/2020 11:23 AM EST Comment:VINH Shonda PAINTER MICROBIOLOGY - GENER AL ORDERABLES Performing Organization Address City/State/[facility] Co de Phone Number [facility] [address] [place] [address] * ECG 12 Lead (03/01/2020 10:51 AM EST) RR Interval 1091 ms [facility] Atrial Rate 54 ms [facility] P-R Interval 161 ms [facility] P Duration 130 ms [facility] P Horizontal [place] -30 deg [facility] P Front [place] 77 deg [facility] QRS [place] 499 ms [facility] QRSD Interval 102 ms [facility] QT Interval 425 ms [facility] QTcB 407 ms [facility] QTcF 413 ms [facility] QRS Horizontal [place] -13 deg [facility] QRS [place] 57 deg [facility] I-40 Horizontal [place] 38 deg [facility] I-40 Front [place] -2 deg [facility] T-40 Horizontal [place] -77 deg [facility] T-40 Front [place] 91 deg [facility] T Horizontal [place] 39 deg [facility] T Wave [place] 23 deg [facility] S-T Horizontal [place] 62 deg [facility] S-T Front [place] 14 deg [facility] ECG Impression - BORDERLINE ECG - [facility] 03/01/2020 Impressions [facility] - 03/01/2020 1:09 PM EST SR Sinus rhythm normal P axis, V-rate 50-99 PLAE Probable left atrial enlargement P >50mS, <-0.10mV V1 Narrative Procedure Note Papo Gordon MD - 03/01/2020 SR Sinus rhythm normal P axis, V-rate 50-99 PLAE Probable left atrial enlargement P >50mS, <-0.10mV V1 Shonda PAINTER ECG ORDERABLES Performing Organization Address City/[facility]/ZIP Co de Phone Number [facility] * Prothrombin Time with INR (03/01/2020 10:45 AM EST) Prothrombin Time 12.3 10.0 - 13.0 sec 03/01/2020 11:12 AM EST INR 1.1 0.8 - 1.2 03/01/2020 11:12 AM EST Comment: INR (International Normalized Ratio) Chest 2012;141(2)7S-47S 2.0-3.0 Less Intense Therapeutic Range 2.5-3.5 More Intense Therapeutic Range Blood 03/01/2020 10:4 5 AM EST 03/01/2020 10:54 AM EST Shonda [place] [facility] BLOOD ORDERABLES [facility] [address] [place] [address] * (ABNORMAL) CBC with Diff (03/01/2020 10:45 AM EST) WBC 5.2 3.5 - 11.0 [id number]/L 03/01/2020 11:20 AM EST RBC 4.46 4.20 - 5.50 [id number]/L 03/01/2020 11:20 AM EST Hemoglobin 13.3(L) 13.5 - 16.0 G/DL 03/01/2020 11:20 AM EST Hematocrit 39.7 37.0 - 47.0 % 03/01/2020 11:20 AM EST MCV 88.8 80.0 - 98.0 fL 03/01/2020 11:20 AM EST MCH 29.8 26.0 - 34.0 PG 03/01/2020 11:20 AM EST MCHC 33.5 32.0 - 36.0 G/DL 03/01/2020 11:20 AM EST RDW 13.5 11.5 - 14.5 % 03/01/2020 11:20 AM EST Platelets 174 150 - 400 u19tqp9/L 03/01/2020 11:20 AM EST MPV 7.9 7.4 - 10.4 fL 03/01/2020 11:20 AM EST Seg Neutrophils % 66.4 % 03/01/2020 11:20 AM EST Lymphocytes % 23.6 % 03/01/2020 11:20 AM EST Monocytes % 5.7 % 03/01/2020 11:20 AM EST Eosinophils % 3.2 % 03/01/2020 11:20 AM EST Basophils % 1.1 % 03/01/2020 11:20 AM EST Segs Absolute 3.5 1.5 - 7.5 q61cia9/L 03/01/2020 11:20 AM EST Lymphocytes Absolute 1.2 1.0 - 4.0 q10bcs3/L 03/01/2020 11:20 AM EST Monocytes Absolute 0.3 0.2 - 0.8 K/uL 03/01/2020 11:20 AM EST Eosinophils Absolute 0.2 0.0 - 0.5 K/uL 03/01/2020 11:20 AM EST Basophils Absolute 0.1 0.0 - 0.2 y43yzp1/L 03/01/2020 11:20 AM EST Blood 03/01/2020 10:4 5 AM EST 03/01/2020 10:54 AM EST Shonda [place] [facility] BLOOD ORDERABLES [facility] [address] [place] [id number] * (ABNORMAL) Comprehensive Metabolic Panel (03/01/2020 10:45 AM EST) Glucose 105(H) 67 - 99 MG/DL 03/01/2020 12:02 PM EST BUN 16 6 - 24 MG/DL 03/01/2020 12:02 PM EST Creatinine 0.74 0.64 - 1.27 MG/DL 03/01/2020 12:02 PM EST Sodium 139 135 - 145 MEQ/L 03/01/2020 12:02 PM EST Potassium 3.7 3.6 - 5.1 MEQ/L 03/01/2020 12:02 PM EST Chloride 105 98 - 110 MEQ/L 03/01/2020 12:02 PM EST CO2 25 22 - 32 MEQ/L 03/01/2020 12:02 PM EST Anion Gap 9 3 - 13 03/01/2020 12:02 PM EST Albumin 4.1 3.5 - 5.0 G/DL 03/01/2020 12:02 PM EST Alkaline Phosphatase 90 34 - 104 IU/L 03/01/2020 12:02 PM EST ALT 17 6 - 45 IU/L 03/01/2020 12:02 PM EST AST (SGOT) 16 10 - 42 IU/L 03/01/2020 12:02 PM EST Bilirubin, Total 0.5 0.2 - 1.3 MG/DL 03/01/2020 12:02 PM EST Calcium 9.0 8.5 - 10.5 MG/DL 03/01/2020 12:02 PM EST Protein, Total 6.5 6.0 - 8.0 G/DL 03/01/2020 12:02 PM EST eGFR >60 Abnormal <60 ML/MIN/1.73M 03/01/2020 12:02 PM EST Blood 03/01/2020 10:4 5 AM EST 03/01/2020 10:54 AM EST Shonda PAINTER LAB BLOOD ORDERABLES [facility] [address] [place] [address] documented in this encounter Visit Diagnoses Diagnosis Screening for viral disease- Primary Special screening examination for unspecified viral disease Weakness present Primary osteoarthritis of left hip Pain and swelling of lower extremity, left Preop examination Unspecified pre-operative examination documented in this encounter Care Teams Alemite Operator Relationship Specialty Start Date End Date Not In System, Provider [place]SE [place] [id number] PCP - General 01/03/20 documented as of this encounter
--- OUTSIDE RECORDS SUMMARY | 2023-11-20 08:34 | XMS_ITS | Encounter Summary ---
Author Organization [facility] Address [address] [place] [address] Care Team Providers Care Impression Printer Name Role Phone Not In System, Provider Primary Care Provider Un available Encounter Details Date Type Department Care Team (Latest Contact Info) Description 06/20/2020 2:57 PM EST - 06/20/2020 11:59 PM EST Hospital Encounter [facility] [address] [place] [address] Shonda Robbins PA [address] [place], [place] [address] Status post total hip replacement, left Discharge [...] PM EST documented as of this encounter Medications [...] HIP LEFT W PELVIS 2-3 VIEWS Routine 06/20/2020 3:09 PM EST Status post total hip replacement, left documented in this encounter Results * X-Ray Hip Left W Pelvis 2-3 Views (06/20/2020 3:09 PM EST) Anatomical Region Laterality Modality Radiographic Steph ging Impressions 06/20/2020 3:25 PM EST IMPRESSION: 1. Bilateral total hip prostheses with intact hardware and no evidence for fracture or dislocation. RADCAT Grade:RADCAT2: Routine result. Signing Doctor: Jose [place] MD ?Date Signed:06/20/2020 3:25 PM Patient ? DOS:06/20/2020 2:58 PM ?Exam:[id number] X-RAY HIP LEFT W PELVIS 2-3 VIEWS Narrative 06/20/2020 3:25 PM EST X-RAY HIP LEFT W PELVIS 2-3 VIEWS HISTORY: Presence of left artificial hip joint; Known Fracture, Evaluate Healing/Alignment TECHNIQUE: 1 view of the pelvis and 2 views of the left hip were acquired. COMPARISON: Pelvis radiographs 03/13/2020 FINDINGS: No acute fracture is identified. Bilateral total hip prostheses are seen in place with intact hardware and no evidence for dislocation. Mild degenerative changes are seen within the lumbosacral spine. The visualized bowel gas pattern is unremarkable. Procedure Note Jose [place] MD - 06/20/2020 X-RAY HIP LEFT W PELVIS 2-3 VIEWS HISTORY: Presence of left artificial hip joint; Known Fracture, EvaluateHealing/Alignment TECHNIQUE: 1 view of the pelvis and 2 views of the left hip wereacquired. COMPARISON: Pelvis radiographs 03/13/2020 FINDINGS: No acute fracture is identified. Bilateral total hip prostheses are seenin place with intact hardware and no evidence for dislocation. Milddegenerative changes are seen within the lumbosacral spine. The visualizedbowel gas pattern is unremarkable. IMPRESSION: 1. Bilateral total hip prostheses with intact hardware and no evidence forfracture or dislocation. RADCAT Grade:RADCAT2: Routine result. Signing Doctor: Jose [place] MD Date Signed:06/20/2020 3:25 PM Patient DOS:06/20/2020 2:58 PM Exam:[id number] X-RAY HIP LEFT W PELVIS 2-3VIEWS [facility] DIAGNOSTIC IMAGI NG ORDERABLES documented in this encounter Visit Diagnoses Diagnosis Status post total hip replacement, left documented in this encounter Care Teams Impression Printer Relationship Specialty Start Date End Date Not In System, Provider JOSE RINALDI [id number] PCP - General 01/03/20 documented as of this encounter
--- OUTSIDE RECORDS SUMMARY | 2023-11-20 08:34 | XMS_ITS | Encounter Summary ---
Author Organization [facility] Address [facility] [place] [address] Care Team Providers Care Cylinder Inspector And Tester Name Role Phone Benjamin Muhammad MD Primary Care Provider [phone] Reason for Visit * Consultation (Routine) - Closed Specialty Diagnoses / Procedures Referred By Contac t Referred To Contact Sleep Center Diagnoses MARK (obstructive sleep apnea) Benjamin Muhammad MD [address] [place] [id number] Rosi Jon MD [facility] [place] [address] Referral ID Status Reason Start Date Expiration Date V isits Requested Visits Authorized [id number] Closed Consult, Test & Treat PCP Updated and/or Approved 04/08/2023 10/17/2023 6 6 Encounter Details Date Type Department Care Team (Late st Contact Info) Description 10/09/2023 10:15 AM EDT Office Visit Sleep Center at [facility] [address] [place] [address] Shannan Souza MD [facility] [place] [address] MARK on CPAP; Hypercholesterolemia Social History Tobacco Use Types Packs/Day Years [...] Mass Index 33.45 10/09/2023 9:38 AM EDT documented in this encounter Progress Notes * Shannan Souza MD - 10/09/2023 10:15 AM EDT Sleep Medicine Consultation/New Patient Note Chief Complaint: Establish care for MARK management HPI: Mr. Chico Mg is a 73 y.o. male with history of HTN, HLD, MDD, BPH and lumbar disc herniation seen at the request of Benjamin Muhammad MD for advice regarding MARK management. Sleep History: [facility] -PSG (01/03/2014): AHI 30 supine AHI 61.3 AVG SpO2 96% MIN SPo2 86% wt:N/A -PAP titration (04/04/2014): CPAP at 10cm recommended WT:N/A Complaint: Patient reports coming in to establish care as his [employer] company [employer] asked him for a new visit beforesending PAP supplies. Patient is currently using his CPAP nightly set at a pressure of 11cm . May feel like he could benefit from higher pressures, reports high leaks. Has a recalled Respironics machine - last prescription >5 years ago per patient's report. Patient denies aerophagia as well daytime sleepiness, ongoing snoring on PAP. Treatment: CPAP Pressure: 11CM Interface: Airfit F30i Size Small Fit: leaks Chin strap: denies DME company: [employer] [employer] SRBD Risk Assessment: Snoring: denies on PAP Observed apneas: denies on PAP Mouth breathing at night: unsure Dry Mouth in morning: denies Nocturnal gasping: denies on PAP Nasal obstruction: denies Weight change:stable Sleep Pattern: Location: bedroom Bed/Recliner/Wedge: bed # of pillows under head: 2 Position: back and sides Bedtime: 8:15-9:30pm Lights out: 9:30pm Latency: most of the time yes, however, some nights may be challenging due to the temperature - no AC Awakenings: sleeps through the night Wake time: 4:30-50am as his dog needs to go out Rise time: immediately Days off: same schedule Shift Work: denies Patients estimate of total sleep time: 8hrs/night Questionnaires: Patient-reported scores: 10/08/2023 10:36 AM [facility] [place] [facility] 2 (Low Risk) Insomnia Severity Index 7 (No clinically significant insomnia) Daytime Symptoms: Upon Awakening: feels fine Daytime fatigue/sleepiness: yes Naps: 1x/month for about 1hr Involuntary Dozing: denies Cognitive Symptoms: denies Driving: Difficulty with sleepiness and driving: denies Close calls related to sleepiness: denies Accidents related to sleepiness: denies Sleep Review of Symptoms: Parasomnias: Sleep Walking: denies Dream Enactment: denies Bruxism: denies Motor: RLS: denies PLMS: denies Narcolepsy: Hallucinations: denies Paralysis: denies Cataplexy: denies Past/Childhood Sleep History: denies Family History: Family history of sleep disorders: siblings may have some snoring Patient Active Problem List Diagnosis Code Benign prostatic hyperplasia with urinary obstruction N40.1, N13.8 Hypercholesterolemia E78.00 Sleep apnea G47.30 H/O bilateral hip replacements Z96.643 No past medical history on file. No past surgical history on file. Current Outpatient Medications Medication Sig Dispense Refill FLUoxetine (PROzac) 40 mg Capsule Take 40 mg by mouth daily. atorvastatin (Lipitor) 10 mg Tablet Take 10 mg by mouth daily. No current facility-administered medications for this visit. 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 Alcohol: 1drink/1xmonth Smoking: denies Other drugs: denies Caffeine: 1 cup of coffee in the am and 2 espressos during the day - last one at 3pm Family: lives with his , daughter and her and his dog (Man) and a cat (Moise) ROS: CON: weight change: see HPI ENT: nasal obstruction: see HPI NEURO: sleep related headaches: denies CV: LE edema: denies Waking with palpitations:denies PUL: SOB: denies Use of supplemental oxygen: denies PSY: Depression/Anxiety: taking fluoxetine for it - 60% of the time - has removed stressors from his life : Nocturia: denies ALL: Environmental Allergies: denies GI: GERD: denies MSE: Alert and appropriate yes Oriented to person, place and time: 1/1 person, 3/3 place, 4/4 time Mood: good Affect: full PE: General: NAD, polite and cooperative There is no height or weight on file to calculate BMI. There were no vitals filed for this visit. Eyes: Eyelid hooding: present ENT: MP: 3 Facial features: has a mustache and facial hair Hard palate: high and arched Soft palate: low Dentition: intact Tongue: midline Nares: grossly patent Pul: Respirations: No evidence of labored breathing during encounter Neck: Appearance: supple Circumference: 18 inches Cardiac: LE edema over shins: deferred Musculoskeletal: Ambulation: unremarkable PAP Compliance Data Card Download: Date Range: 07/11/2023 - 10/08/2023 Pressure: Residual AHI: Avg Vibratory Snore Index: 4.9 Avg% Night in Large Leak: 33.8% Average Usage (Days Used/Hours): 8hrs 49 min Days of usage%: 100% % Days used > 4 hours: 100% Records Reviewed PCP notes and previous sleep medicine provider Assessment: Mr. Chico Mg is a 73 y.o. male with history of severe obstructive sleep apnea initially diagnosed in 2013 managed with CPAP is seen to establish care as his previous sleep medicineprovider at [facility] is no longer available. Currently patient is using a RespironicsCPAP set at a pressure of 11cm, has had that machine for >5years. Patient has been able to tolerate current pressures with perceived benefit in terms of his ability to sleep through the night and his snoring resolution, however, patient has had frequent mask leaks and is due for new supplies. Mr. Mg was advised by his DME company to establish care before they were able to fulfill a new PAP supply order. Patient's compliance report correlates with excellent adherence, good MARK control and high leaks. Additionally, patient does have facial hair and is wearing a FFM, may benefit from wearing a nasal interface with a chin strap. Patient would be interested in exploring that option, hence he will be scheduled for a mask fitting visit with our in-house RT team. We will also send a prescr iption for a new PAP machine and supplies. Patient's diagnostic sleep study provided this morning by [facility] as the one he had on file was the PAP titration study. Untreated obstructive sleep apnea presents a moderate risk of morbidity (ie hypertension etc). The patient will call us to book a compliance visit after receiving his new machine. No pressure setting changes recommended until mask leaks are controlled. The patient indicates understanding of these issues and agrees with the plan. Recommendations: 1) New Rx for CPAP 11cm - [facility] 2) Mask fitting visit 3) Patient to call to book PAP compliance visit 6-8 weeks after receiving new PAP machine 4) Driving safety was reviewed with patient. If the patient feels too sleepy to drive he/she knows not to drive. If he/she becomes sleepy while driving he/she will pull up hand and nap. Shannan Mckee MD Sleep Medicine Fellow * Corbin Epstein MD - 10/09/2023 10:15 AM EDT I have seen the patient (Sleep Medicine Clinic) and reviewed Dr Adames's history and I agree with the details as written. The assessment and plan were formulated in discussion with me and I agree with them as documented. I provided medical care services that are part of the ongoing care related to the patient's serious/complex condition. Pertinent History: Prior dx of MARK in [facility] - study requested. CPAP trial in scanned from 2013- 10 cm effective with saturations 94-95%. Pertinent Exam: male in nad Major issues addressed: mask fit issues - 34% large leak Plan: new CPAP, mask fit visit, Rx for supplies, diagnostic study requested CORBIN EPSTEIN MD documented in this encounter Miscellaneous Notes * Addendum Note - Corbin Epstein MD - 10/09/2023 10:15 AM EDTAddended by: CORBIN EPSTEIN on: 10/09/2023 03:57 PM Modules accepted: Level of Service documented in this encounter Plan of Treatment Upcoming Encounters Date Type Department Care Team (Late st Contact Info) Description 03/10/2024 9:30 AM EST Office Visit Sleep Center at [facility] [address] [place] [address] Corbin Epstein MD [facility] [place] [address] documented as of this encounter Visit Diagnoses Diagnosis MARK on CPAP Obstructive sleep apnea (adult) (pediatric) Hypercholesterolemia Pure hypercholesterolemia documented in this encounter Care Teams Cylinder Inspector And Tester Relationship Specialty Start Date End Date Benjamin Muhammad MD [address] [place] [address] PCP - General Family Medicine 02/04/22 documented as of this encounter
--- OUTSIDE RECORDS SUMMARY | 2023-11-20 08:34 | XMS_ITS | Encounter Summary ---
Author Organization [facility] Address [address] [place] [address] Care Team Providers Care Adz Worker Name Role Phone Not In System, Provider Primary Care Provider Un available Reason for Visit * Auth/Cert Specialty Diagnoses / Procedures Referred By Bambi seals Referred To Contact Diagnoses Primary osteoarthritis of left hip Primary osteoarthritis of left hip [M16.12] Procedures IA TOTAL HIP ARTHROPLASTY HIP, TOTAL ARTHROPLASTY Hema Rodriguez MD [address] [place] [address] Referral ID Status Reason Start Date Expiration Date Visits Re quested Visits Authorized [id number] 1 1 Encounter Details Date Type Department Care Team (Late st Contact Info) Description 03/13/2020 9:52 AM EST - 03/13/2020 12:29 PM EST Surgery [facility] [address] [place] [phone] Hema Rodriguez MD [address] [place] [id number] HIP, TOTAL ARTHROPLASTY Surgery Details Date/Time Status Location OR Service Patient Class Case Cl ass Case Type Trauma Case? 03/13/20 9:52 AM Posted [facility] OR OR 5 Orthopedics Observation Elective Panel 1 Procedure LRB Anes Op Region Wound Class Comments HIP, TOTAL ARTHROPLASTY Left General Hip Clean Surgeon Surgeon Role Service Panel Hema Rodriguez MD Primary Orthopedics 1 Case Notes AVG, HORTICULTURAL TECHNICAL OFFICER, Chris. 2 hours. Radlink. Consider fast track (?) Special Needs AVG, HORTICULTURAL TECHNICAL OFFICER, [place]. 2 hours. Radlink. Consider fast track (?) documented in this encounter Social History Tobacco Use Types Packs/Day Years [...] Sign Reading Time Taken Comments Blood Pressure 132/49 03/13/2020 12:25 PM EST Pulse 76 03/13/2020 12:25 PM EST Temperature 36.2 ??C (97.2 ??F) 03/13/2020 12:[address] Respiratory Rate 13 03/13/2020 12:25 PM EST Oxygen Saturation 98% 03/13/2020 12:25 PM EST Inhaled Oxygen Concentration - - Weight - - Height - - Body Mass Index - - documented in this encounter Discharge Summaries * MADINA Fajardo - 03/13/2020 2:53 PM EST DISCHARGE SUMMARY [facility] Discharge Information Date and time of [...] need to do Follow up with Hema Rodriguez, DO in 2 week(s) [facility] will call you to schedule your two week post-operative visit. You should have new x-rays taken prior to your visit. Where: [address] [facility] [id number] Immunizations given this hospitalization: Presentation Information History [...] will be discharged to his home with [facility] physical therapy services to follow. All other systems reviewed negative and noncontributory. Past Medical History: Past Medical History: Diagnosis Date ??? Depression ??? Elevated serum cholesterol ??? MARK on CPAP Allergies: Prochlorperazine Hospital Course: Hospital Course Hospital Course by MADINA Fajardo at 03/13/2020 2:52 PM Author: MADINA Fajardo Author Type: Physician Store Receiving Specialist Filed: 03/13/2020 2:53 PM Note Status: Signed Cosign: Cosign Not Required Date of Service: 03/13/2020 2:52 PM Manager Construction: MADINA Fajardo (Physician Store Receiving Specialist) [place] [employer] is a very pleasant 69 [...] will be discharged to his home with [facility] therapy services to follow. Showing 1 [...] can prescribe these for you. FOLLOW-UP ??? [facility] will call you to schedule your [...] we encourage fluids, walking around, and youmay picking tech a stool softener, like Miralax, from your pharmacy. ??? Please see Medication Reconciliation Sheet for a complete list of your medications. Need help? [facility] [place] ([phone]-[phone]) has numerous resources available 11/11 for patients, family/friends, and providers. Call [facility] at [phone] if you have any questions. Thank you! [facility] AMBULATORY SURGERY PROGRAM HOME CARE INSTRUCTIONS YOU [...] one second. POST-OPERATIVE TELEPHONE CALL A hospital sales representative education courses will call you tomorrow or the next [...] Activity modification, physical therapy, exercise and NSAIDs, [id number] medications have been tried without relief. ROS: [...] PM documented in this encounter Consult Notes * Mercy Qureshi OT - 03/13/2020 2:53 PM EST Past Medical / Past Surgical: Past Medical History: Diagnosis Date ??? Depression ??? Elevated serum cholesterol ??? MARK on CPAP Past Surgical History: Procedure Laterality Date ??? HIP ARTHROPLASTY Right 2018 [facility] ??? KNEE ARTHROSCOPY ??? SPINE SURGERY L4-5 [...] rails. Patient states he was working in [employer] and would like to return to work when able. Patient presents to OT evaluation today completed in PACU prior to patient d/c home. Pt was able towear facemask during their therapy session, with this technical document writer. This therapist wore PPE in accordance with current infection control guidelines. 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 Signature: Mercy Qureshi OTR/L Electronic Signature * Jolie Alston, PT - 03/13/2020 2:05 PM EST Past Medical / Past Surgical: Past Medical History: Diagnosis Date ??? Depression ??? Elevated serum cholesterol ??? MARK on CPAP Past Surgical History: Procedure Laterality Date ??? HIP ARTHROPLASTY Right 2018 [facility] ??? KNEE ARTHROSCOPY ??? SPINE SURGERY L4-5 ??? TONSILLECTOMY ??? TRANSURETHRAL RESECTION OF PROSTATE Allergies: Prochlorperazine Patient's Hospital Problem's: Principal Problem: Primary osteoarthritis of left hip Active Problems: MARK on CPAP Subjective: Pt reports he is confident he will be able to perform functional mobility tasks at homew assist of roommate and adult child. Reports he had R JEAN PAUL previously and did well after. Would like to DC home today. Clinical Impression: 69 yo M s/p L JEAN PAUL 03/13/[address] Rodriguez. Pt presents with expected post-op deficits to include ROM, strength, balance, and gait. Secondary to these deficits pt is experiencing limitations in multiple aspects of functional mobility to include AMB and positional changes. At baseline pt lives with roommate and adult child in a home with 4 COREEN, B rails. Owns forearm crutches. During PT eval pt demonstrated ability to perform supine<>sitting EOB with Mod I. Pt also AMBwith RW and steady gait, additionally ascended<>descended 4 stairs without LOB. Pt has met inpatient PT goals to facilitate DC home with support of family and PT services. Pt provided RW to assist in facilitating this DC plan. Pt will be placed on monitor status incase of change in mobility status/DC planning. 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 Prior Function: Level of [place]: Independent with functional mobility Lives With: Roommate, Adult child Receives Help From: Family, Friend(s) Home Environment: Type of Home: House Home Access: Stairs to enter with rails Entrance Stairs-Rails: Both Entrance Stairs-Number of Steps: 4 Home Equipment: Forearm crutches Objective: Precautions: Precautions Initiated/Maintained: Fall risk, Total hip Extremity Assessment: RLE Assessment RLE Assessment: Within Functional Limits LLE Assessment LLE Assessment: Exceptions to WFL AROM LLE (degrees) L Hip Flexion 0-125: sitting EOB 85 degrees Strength LLE L Hip Flexion: 3-/5 L Knee Flexion: 3-/5 L Knee Extension: 3-/5 Posture/Balance: Balance Sitting - Static: Good Sitting - Dynamic: Fair+ Standing - Static: Fair+ Standing - Dynamic: Fair Additional Balance Comments: w RW Mobility: Supine to Sit: Modified independent (device, extra time) Sit to Supine: Modified independent (device, extra time) Sit to Stand: Contact guard, Stand by assistance/supervision Stand to Sit: Stand by assistance/supervision, Contact guard Transfers Comments: w RW Distance: 40 x 2 w RW Pattern: L Decreased stance time Gait Assistance: Contact guard, Stand by/supervision, With cueing Assistive Device: Rolling walker Number of Stairs: 4 Stair Management Assistance: Contact guard, Stand by/supervision, With cueing Stair Management Technique: Two rails, Step to pattern, Forwards, With gait belt Gait Comments: steady gait w RW, steady gait on stairs- no LOB episodes Outcome Measure: AM-PAC Basic Mobility Score: 19 -HLM Score: 7 Plan of Care: Treatment/Interventions: Therapeutic exercises, Therapeutic activities, Gait training, Neuromuscular re-education, Bed mobility, Cognitive reorientation, Compensatory technique education, Continued evaluation, Endurance training, Equipment eval/education, Functional transfer training, LE strengthening/ROM Therapy Frequency: Monitor status Assessment: Decreased functional mobility, Decreased activity tolerance, Decreased balance, Decreased lower extremity range of motion, Decreased lower extremity strength Prognosis: Good Recommendation: Home with supervision and/or assistance, Homecare PT Equipment Recommendations: 2 Wheel walker Interdisciplinary Communication: Provider (MP/SPECIAL DISTRIBUTION CLERK/PA), RN Communication Relayed: mobility status, DC recs History: patient has 3 or more personal factors or comorbidities that impact the plan of care Examination: of body systems using standardized tests and measures addresses 3 elements Presentation: is characterized by evolving clinical presentation with changing characteristics. Decision-making: is of moderate complexity using standardized patient assessment instrument and/or measureable assessment of functional outcome. Based upon above, PT moderate complexity evaluation code 27624 is appropriate. Signature: Jolie Alston PT Electronic Signature documented in this encounter Nursing [...] services Home Health Facility/Agency Name (A-K): [facility] Transportation home/to next appointment?: Accompanied by responsible adult Name or Relationship of Accompaniment: [facility] [phone] I received a call from Shonda PAINTER from PACU.Patient is being discharged from there.Patient would like home care services and has been in touch with [facility].I called them to confirm and sent a [...] will be discharged to his home with [facility] physical therapy services to follow. * Op Note - Hema Rodriguez - 03/13/2020 10:29 AM EST Op Note Brief Op Note Brief Op Note by Hema Rodriguez DO at 03/13/2020 10:29 AM Author: Hema Rodriguez DO Author Type: Physician Filed: 03/13/2020 12:15 PM Note Status: Addendum Cosign: Cosign Not Required Date of Service: 03/13/2020 10:29 AM Manager Construction: Hema Rodriguez DO (Physician) Pre-Op Diagnosis Codes: * Primary osteoarthritis of left hip [M16.12] Post-Op Diagnosis Codes: * Primary osteoarthritis of left hip [M16.12] Date of Surgery: 03/13/2020 Procedure(s): Procedure(s) (LRB): HIP, TOTAL ARTHROPLASTY (Left) All surgeon(s) on case: Surgeon(s): Hema Rodriguez DO Store Receiving Specialist(s): SARAH Fajardo CST Anesthesia Type: General EBL: [...] Implant Name Type Inv. Item Serial No. Tool Maintenance Technician Lot No. LRB No. Used Action TRIDENT II TRITANIUM CLUSTERHOLE 54E - [id number] TRIDENT II TRITANIUM CLUSTERHOLE 54E [employer] [id number] Left 1 Implanted 6.5MM LOW PROFILE HEX SCREW 20MM - [id number] 6.5MM LOW PROFILE HEX SCREW 20MM [employer] 2NPE Left 1 Implanted 6.5MM LOW PROFILE HEX SCREW 25MM - [id number] 6.5MM LOW PROFILE HEX SCREW 25MM [employer] 2HMA Left 1 Implanted TRIDENT 0X3 INSERT 36MM ID - [id number] TRIDENT 0X3 INSERT 36MM ID [employer] [id number] Left 1 Implanted SIZE 4 ACCOLADE II 127 DEG - [id number] SIZE 4 ACCOLADE II 127 DEG [employer] [id number] Left 1 Implanted DELTA V-40 CERAMIC HEAD 360 - [id number] DELTA V-40 CERAMIC HEAD 360 [employer] [id number] Left 1 Implanted Specimen(s) Information: * No specimens in log * Complication(s): None Condition: Stable Other / Plan: Standard postop JEAN PAUL protocol. Posterior precautions-could not perform capsule repair due to deficient tissue Signature: Hema Rodriguez DO Electronic Signature Description of Procedure Following [...] in stable condition. All counts were correct kindergarten teacher assistant was utilized during the entire surgery. [...] assist. * Brief Op Note - Hema Layla Rodriguez - 03/13/2020 10:29 AM EST Pre-Op Diagnosis Codes: * Primary osteoarthritis of left hip [M16.12] Post-Op Diagnosis Codes: * Primary osteoarthritis of left hip [M16.12] Date of Surgery: 03/13/2020 Procedure(s): Procedure(s) (LRB): HIP, TOTAL ARTHROPLASTY (Left) All surgeon(s) on case: Surgeon(s): Hema Rodriguez, Store Receiving Specialist(s): SARAH Fajardo CST Anesthesia Type: General EBL: [...] Implant Name Type Inv. Item Serial No. Tool Maintenance Technician Lot No. LRB No. Used Action TRIDENT II TRITANIUM CLUSTERHOLE 54E - [id number] TRIDENT II TRITANIUM CLUSTERHOLE 54E [employer] [id number] Left 1 Implanted 6.5MM LOW PROFILE HEX SCREW 20MM - [id number] 6.5MM LOW PROFILE HEX SCREW 20MM [employer] 2NPE Left 1 Implanted 6.5MM LOW PROFILE HEX SCREW 25MM - [id number] 6.5MM LOW PROFILE HEX SCREW 25MM [employer] 2HMA Left 1 Implanted TRIDENT 0X3 INSERT 36MM ID - [id number] TRIDENT 0X3 INSERT 36MM ID [employer] [id number] Left 1 Implanted SIZE 4 ACCOLADE II 127 DEG - [id number] SIZE 4 ACCOLADE II 127 DEG [employer] [id number] Left 1 Implanted DELTA V-40 CERAMIC HEAD 360 - [id number] DELTA V-40 CERAMIC HEAD 360 [employer] [id number] Left 1 Implanted Specimen(s) Information: * No [...] NO CHARGE Routine 03/13/2020 11:30 AM EST IA ARTHRP ACETBLR/PROX FEM PROSTC AGRFT/ALGRFT 03/13/2020 9:39 AM EST Primary osteoarthritis of left hip Case Notes AVG, HORTICULTURAL TECHNICAL OFFICER, Chris. 2 hours. Radlink. Consider fast track (?) Special Needs AVG, HORTICULTURAL TECHNICAL OFFICER, Chris. 2 hours. Radlink. Consider fast track [...] 1:06 PM Patient ? DOS:03/13/2020 12:40 PM ?Exam:[id number] X-RAY PELVIS 1 OR 2 VW Narrative [...] Signed:03/13/2020 1:06 PM Patient DOS:03/13/2020 12:40 PM Exam:[id number] X-RAY PELVIS 1 OR 2 VW Shonda [place] MADINA [facility] ORDERABLES * X-Ray RADLINK NO CHARGE (03/13/2020 11:30 AM EST) Narrative 03/13/2020 11:30 AM EST THIS IS A SYSTEM GENERATED RESULT: This exam was performed intraoperatively, no Radiologist was present and the films obtained do not require radiologic interpretation. Hema Rodriguez MD [facility] ORDERABLES documented in this encounter Visit Diagnoses Diagnosis Primary osteoarthritis of left hip- Primary MARK on CPAP Primary osteoarthritis of left hip documented in this encounter Admitting Diagnoses Diagnosis Primary osteoarthritis of left hip documented in this encounter Administered Medications Inactive Administered Medications - up to 3 most recent administrations Medication Order MAR Action Action Date Dose Rate Site Bupivacaine-EPINEPHrine PF (MARCAINE-PF w/EPI) 0.5 %-1:200,000 injection As needed, Starting on Fri03/13/20 at 1157, Until Fri03/13/20 at 1217, Intra-op Given 03/13/2020 11:57 AM EST 30 mL haloperidol lactate (HALDOL) 5 mg/mL injection 1 [...] Given 03/13/2020 1:21 PM EST 5 mg sodium chloride 0.9 % irrigation solution As needed, Starting on Fri03/13/20 at 1156, Until Fri03/13/20 at 1217, Intra-op Given 03/13/2020 11:56 AM EST 1,000 mL sterile water (IRRIGATION) irrigation solution As needed, Starting on Fri03/13/20 at 1156, Until Fri03/13/20 at 1217, Intra-op Given 03/13/2020 11:56 AM EST 2,000 mL documented in this encounter Active and Recently [...] (only) 0900 (Due) PRN Medication Order 03/11/2020 03/12/202003/1303/13/2020 Bupivacaine-EPINEPHrine PF (MARCAINE-PF w/EPI) 0.5 %-1:200,000 injection [...] on Fri03/13/20 at 0849, 4 doses, Until 03/13/20 at 1731, PACU (only), To max dose [...] tools) documented in this encounter Care Teams Adz Worker Relationship Specialty Start Date End Date Not In System, Provider JOSE RINALDI [id number] PCP - General 01/03/20 documented as of this encounter
--- OUTSIDE RECORDS SUMMARY | 2023-11-20 08:35 | XMS_ITS | Encounter Summary ---
Author Organization [facility] Address [address] [place] [address] Care Team Providers Care Home Health Scheduler Name Role Phone Not In System, Provider Primary Care Provider Un available Reason for Referral * Physical Therapy (Routine) - Closed Specialty Diagnoses / Procedures Referred By Margaretac t Referred To Contact Physical Therapy Diagnoses Primary osteoarthritis of left hip Linnea Beasley PA [address] [place] [address] [facility] [address] [address] Referral ID Status Reason Start Date Expiration Date V isits Requested Visits Authorized [id number] Closed Specialty Services Required 01/12/2020 07/10/2020 1 1 * Physical Therapy (Routine) - Closed Specialty Diagnoses / Procedures Referred By Bambi seals Referred To Contact Physical Therapy Diagnoses Primary osteoarthritis of left hip Linnea Beasley PA [address] [place] [address] [facility] [employer] [address] [place] [phone] Referral ID Status Reason Start Date Expiration Date V isits Requested Visits Authorized [id number] Closed Specialty Services Required 01/12/2020 07/10/2020 36 36 Reason for Visit * Reason Comments New Patient left hip * Orthopedic (Routine) - Closed Specialty Diagnoses / Procedures Referred By Contac t Referred To Contact Orthopedic Surgery Diagnoses Left hip pain Not In System, [place] [address] Hema Rodriguez MD [address] [place] [address] Referral ID Status Reason Start Date Expiration Date V isits Requested Visits Authorized [id number] Closed Specialty Services Required 01/03/2020 01/02/2021 1 1 Encounter Details Date Type Department Care Team (Late st Contact Info) Description 01/12/2020 12:30 PM EDT Office Visit [facility], [facility] [address] [place] [address] Hema Rodriguez MD [address] [place], [place] [id number] Primary osteoarthritis of left hip (Primary Dx); Weakness present ; Pain and swelling of lower extremity, left Social History Tobacco Use Types Packs/Day Years Used Date Smoking Tobacco: Never Assessed Sex and Gender Information Value Date Recorded [...] have Coronavirus / COVID-19? No / Unsure 01/12/2020 11:55 AM EDT documented as of this encounter Progress Notes * Rishabh Wilder MA - 01/12/2020 12:30 PM EDT ##Pre-operative Comorbidity, Functional and Home Safety/Support Assessment: #Co-morbid detailed Assessment: Patient currently has multiple chronic co-morbidities as documented in this assessment as well as those noted from personal review of primary care documentation which includes both stable control as well as uncontrolled co- morbidities where listed: - -Co-existent Orthopedic Co-morbidities limiting functional status/likely to prolong beyond expectedroutine recovery: Hip Osteoarthritis - -Neuro-Psychiatric Depression/Major Depressive Disorder (note if on treatment): #Home Safety and Home Support [place] is a pleasant 69 yr old male presenting with left hip pain . [place] previous JEAN PAUL or right sidein 2017. Lives in a house some difficulty ambulating stairs and ambulating a vehicle #Pre Op Functional Assessment RAPT SCORE (Best Score 12) AGE: 66-75: - 1 GENDER: MALE: - 2 AVG WALKING DISTANCE - How far, on average, can you walk? (a block is 200 meters or 1/2 a lap around a high school track): Two blocks or more with or without rest: - 2 GAIT AID ASSIST DEVICE: None (no walk assist device at all): -2 COMMUNITY SUPPORT RESOURCE UTILIZATION (meals on wheels, home nursing, district nurse, community mental health): Use of none or 1 home or community service per week: -1 POST OPERATIVE LIVING SITUATION - Will you live with someone who can fully care for you after your operation? Yes: -3 Sum of above= 11 Most likely required post discharge destination predicated by score: RAPT Score: >9 - Predicts directly home post-operatively * Hema Rodriguez - 01/12/2020 12:30 PM EDT [...] Activity modification, physical therapy, exercise and NSAIDs, aitc-fbs-xazogbu medications have been tried without relief. ROS: [...] 01/12/2020 12:55 PM documented in this encounter Miscellaneous Notes * Addendum Note - MADINA Fajardo - 01/12/2020 12:30 PM EDTAddended by: LINNEA BEASLEY on: 01/12/2020 04:21 PM Modules accepted: Orders documented in this encounter Plan of Treatment Scheduled Referrals Name Type Priority Associated Diagnoses Orde r Schedule Ambulatory Referral to Physical Therapy Outpatient Referral Routine Primary osteoarthritis of left hip Ordered: 01/12/2020 Ambulatory Referral to Physical Therapy Outpatient Referral Routine Primary osteoarthritis of left hip Ordered: 01/12/2020 documented as of this encounter Results * Preoperative Nasal Screen for MRSA and MSSA,PCR (03/01/2020 11:45 AM EST) Staphylococcus aureus DNA NOT_PERFO RMED 03/01/2020 11:23 AM EST Comment:refer to nasal cultu re Methicillin-Resist ant Staph aureus DNA NOT_PERFO RMED 03/01/2020 11:23 AM EST Invalid Nasal Screen Comment NOT_PERFO RMED 03/01/2020 11:23 AM EST Nares 03/01/2020 11:4 5 AM EST 03/01/2020 11:22 AM EST [facility] MICROBIOLOGY - GENER AL ORDERABLES Performing Organization Address City/State/[facility] Co de Phone Number [facility] [address] [place] [address] * X-Ray Hip Left W Pelvis 2-3 Views (03/01/2020 11:22 AM EST) Anatomical Region Laterality Modality Radiographic Steph ging Impressions 03/01/2020 11:45 AM EST IMPRESSION: Standard alignment of right total hip arthroplasty, moderate left hip osteoarthritis. RADCAT Grade:RADCAT2: Routine result. Signing Doctor: Nicolas Yao MD ?Date Signed:03/01/2020 11:45 AM Patient ? DOS:03/01/2020 11:11 AM ?Exam:[id number] X-RAY HIP LEFT W PELVIS 2-3 VIEWS [...] Date Signed:03/01/2020 11:45AM Patient DOS:03/01/2020 11:11 AM Exam:[id number] X-RAY HIP LEFT W PELVIS 2-3VIEWS Linnea Goside [facility]NO[facility]IC IMAGI NG ORDERABLES * ECG 12 Lead (03/01/2020 10:51 AM EST) RR Interval 1091 ms [facility] Atrial Rate 54 ms [facility] P-R Interval 161 ms [facility] P Duration 130 ms [facility] P Horizontal [facility] -30 deg [facility] P Front [facility] 77 deg [facility] QRS [facility] 499 ms [facility] QRSD Interval 102 ms [facility] QT Interval 425 ms [facility] QTcB 407 ms [facility] QTcF 413 ms [facility] QRS Horizontal [facility] -13 deg [facility] QRS [facility] 57 deg [facility] I-40 Horizontal [facility] 38 deg [facility] I-40 Front [facility] -2 deg [facility] T-40 Horizontal [facility] -77 deg [facility] T-40 Front [facility] 91 deg [facility] T Horizontal [facility] 39 deg [facility] T Wave [facility] 23 deg [facility] S-T Horizontal [facility] 62 deg [facility] S-T Front [facility] 14 deg [facility] ECG Impression - BORDERLINE ECG - [facility] 03/01/2020 Impressions [facility] - 03/01/2020 1:09 PM EST SR Sinus rhythm normal P axis, V-rate 50-99 PLAE Probable left atrial enlargement P >50mS, <-0.10mV V1 Narrative Procedure Note Papo Gordon MD - 03/01/2020 SR Sinus rhythm normal P axis, V-rate 50-99 PLAE Probable left atrial enlargement P >50mS, <-0.10mV V1 Linnea Goside [facility] ECG ORDERABLES [facility] * Prothrombin Time with INR (03/01/2020 10:45 AM EST) Prothrombin Time 12.3 10.0 - 13.0 sec 03/01/2020 11:12 AM EST INR 1.1 0.8 - 1.2 03/01/2020 11:12 AM EST Comment: INR (International Normalized Ratio) Chest 2012;141(2)7S-47S 2.0-3.0 Less Intense Therapeutic Range 2.5-3.5 More Intense Therapeutic Range Blood 03/01/2020 10:4 5 AM EST 03/01/2020 10:54 AM EST Linnea Birmingham PA LAB BLOOD ORDERABLES Performing Organization Address City/State/[facility] Co de Phone Number [facility] [address] [place] [phone] * (ABNORMAL) CBC with Diff (03/01/2020 10:45 AM EST) WBC 5.2 3.5 - 11.0 j15avz5/L 03/01/2020 11:20 AM EST RBC 4.46 4.20 - 5.50 e83kxc69/L 03/01/2020 11:20 AM EST Hemoglobin 13.3(L) 13.5 [...] AM EST Platelets 174 150 - 400 q20xih0/L 03/01/2020 11:20 AM EST MPV 7.9 7.4 - 10.4 fL 03/01/2020 11:20 AM EST Seg Neutrophils % 66.4 % 03/01/2020 11:20 AM EST Lymphocytes % 23.6 % 03/01/2020 11:20 AM EST Monocytes % 5.7 % 03/01/2020 11:20 AM EST Eosinophils % 3.2 % 03/01/2020 11:20 AM EST Basophils % 1.1 % 03/01/2020 11:20 AM EST Segs Absolute 3.5 1.5 - 7.5 s70bse9/L 03/01/2020 11:20 AM EST Lymphocytes Absolute 1.2 1.0 - 4.0 x96jag5/L 03/01/2020 11:20 AM EST Monocytes Absolute 0.3 0.2 - 0.8 K/uL 03/01/2020 11:20 AM EST Eosinophils Absolute 0.2 0.0 - 0.5 K/uL 03/01/2020 11:20 AM EST Basophils Absolute 0.1 0.0 - 0.2 d28zwi3/L 03/01/2020 11:20 AM EST Blood 03/01/2020 10:4 5 AM EST 03/01/2020 10:54 AM EST [facility] LAB BLOOD ORDERABLES [facility] [address] [place] [address] * (ABNORMAL) Comprehensive Metabolic Panel (03/01/2020 10:45 [...] 5 AM EST 03/01/2020 10:54 AM EST Linnea PAINTER LAB BLOOD ORDERABLES Performing Organization Address City/State/[facility] Co de Phone Number [facility] [address] [place] [address] documented in this encounter Visit Diagnoses Diagnosis Primary osteoarthritis of left hip- Primary Weakness present Pain and swelling of lower extremity, left Screening for viral disease- Primary Special screening examination for unspecified viral disease Weakness present Primary osteoarthritis of left hip Pain and swelling of lower extremity, left Preop examination Unspecified pre-operative examination documented in this encounter Care Teams Home Health Scheduler Relationship Specialty Start Date End Date Not In System, Provider JOSE RINALDI [id number] PCP - General 01/03/20 documented as of this encounter
--- OUTSIDE RECORDS SUMMARY | 2023-11-20 08:35 | XMS_ITS | Encounter Summary ---
Author Organization [facility] Address [address] [place] [address] Care Team Providers Care Manager Of Loss Prevention Operations Name Role Phone Not In System, Provider Primary Care Provider Un available Encounter Details Date Type Department Care Team (Latest Contact Info) Description 01/12/2020 11:55 AM EDT - 01/12/2020 11:59 PM EDT Hospital Encounter [facility] [address] [place] [address] Hema Rodriguez MD [address] [place] [phone] Left hip pain Discharge Disposition: Home or Self Care Social [...] AM EDT documented as of this encounter Medications at [...] HIP LEFT W PELVIS 2-3 VIEWS Routine 01/12/2020 12:29 PM EDT Left hip pain documented in this encounter Results * X-Ray Hip Left W Pelvis 2-3 Views (01/12/2020 12:29 PM EDT) Anatomical Region Laterality Modality Radiographic Steph ging Impressions 01/12/2020 12:39 PM EDT IMPRESSION: 1. Moderately severe left hip osteoarthritis. 2. Grossly intact right hip arthroplasty. RADCAT Grade:RADCAT2: Routine result. Signing Doctor: Yann De Leon MD ?Date Signed:01/12/2020 12:39 PM Patient ? DOS:01/12/2020 12:21 PM ?Exam:[id number] X-RAY HIP LEFT W PELVIS 2-3 VIEWS Narrative 01/12/2020 12:39 PM EDT HISTORY: Pain in left hip; pain TECHNIQUE: 1 view of the pelvis and 2 views of the left hip were acquired. COMPARISON: None. FINDINGS: There are postsurgical changes related to a total right hip arthroplasty, incompletely visualized though grossly intact in appearance. Moderately severe left hip arthritis is noted with loss the normal superior joint space and bony sclerosis. Degenerative disc disease of the lower lumbar spine is also present. There is no evidence of an acute fracture. The soft tissues appear normal. Procedure Note Yann De Leon MD - 01/12/2020 HISTORY: Pain in left hip; pain TECHNIQUE: 1 view of the pelvis and 2 views of the left hip wereacquired. COMPARISON: None. FINDINGS: There are postsurgical changes related to a total right hip arthroplasty,incompletely visualized though grossly intact in appearance. Moderatelysevere left hip arthritis is noted with loss the normal superior jointspace and bony sclerosis. Degenerative disc disease of the lower lumbar spine is also present. Thereis no evidence of an acute fracture. The soft tissues appear normal. IMPRESSION: 1. Moderately severe left hip osteoarthritis. 2. Grossly intact right hip arthroplasty. RADCAT Grade:RADCAT2: Routine result. Signing Doctor: Yann De Leon MD Date Signed:01/12/2020 12:39 PM Patient DOS:01/12/2020 12:21 PM Exam:[id number] X-RAY HIP LEFT W PELVIS 2-3VIEWS [facility] NG ORDERABLES documented in this encounter Visit Diagnoses Diagnosis Left hip pain Pain in joint, pelvic region and thigh documented in this encounter Care Teams Manager Of Loss Prevention Operations Relationship Specialty Start Date End Date Not In System, Provider JOSE RINALDI [id number] PCP - General 01/03/20 documented as of this encounter
--- OUTSIDE RECORDS SUMMARY | 2023-11-20 08:35 | XMS_ITS ---
Author Organization Unknown Address [address] [place] [phone] Phone Care Team Providers Care Network Security Administrator Name Role Phone JAMI Campos Attending Unavailable MARK Yousif Primary Unavailable Results PSA PROSTATE SPECIFIC ANTIGE N DIAG* - Collect Date/Time: 04/26/2021 13:04 [facility] ID: [id number] - [id number] [address] [place] [address], [address] LOINC: 2857-1 Test Value Unit Reference Range Code Code System Flag PSA 14.58 ng/mL L=0.00 H=6.50 2857-1 LOINC H Social History Type Status Start Date End Date Code Code Syst em Smoking History Never smoker (Never Smoked) 210046320 SNOMED CT Sex Male Medications Medication Start Date End Date Route Frequency Dose Code Code System Medication Instructions Home Meds Atorvastatin Calcium 20MG Oral Tablet 02/25/2015 Unknown ORAL DAILY 20 MILLIGRAMS 092943 RxNorm CORA E 20 MILLIGRAMS ORAL DAILY Citalopram 40MG Oral Tablet 02/25/2015 Unknown ORAL DAILY 40 MILLIGRAMS 038724 RxNorm CORA E 40 MILLIGRAMS ORAL DAILY Flomax 0.4MG Oral Capsule 02/25/2015 Unknown ORAL DAILY 1 TABLET 582494 RxNorm TAKE 1 TABLET ORAL DAILY Assessment You had the following problems:TURP SYNDROME Hospital Discharge Instructions Should you have any questions prior to discharge, please contact a member of your healthcare team. If you have left the hospital and have any questions, please contact your primary care physician. Reason For Referral No Data Found Problems Problem Start Date Resolved Date Status Code Code System TURP SYNDROME active 946600363 SNOMED -CT Allergies and Adverse Reactions Allergy Substance Reaction Severity Start Date Concern Status Co de Code System PROCHLORPERAZINE Active 8704 RxNorm Plan of Treatment LAB DRAW 15MIN 09/10/2022 PRE-OP COVID-19 TESTING 01/14/2022 CT ABDOMEN/PELVIS W/O CONTRAST 01/04/20 22 LAB DRAW 15MIN 11/07/2021 LAB DRAW 15MIN 04/26/2021 Encounters Encounter Diagnosis Start Date Code Code Sys tem Raised prostate specific antigen 04/26/2021 [id number] 5 SNOMED-CT Personal Care Team Section Performer Name Performer Role Active Date Inactive Da te
--- OUTSIDE RECORDS SUMMARY | 2023-11-20 08:35 | XMS_ITS ---
Author Organization Unknown Address [address] [place] [phone] Phone Care Team Providers Care Brand Recorder Name Role Phone JAMI Campos Attending Unavailable MARK Yousif Primary Unavailable Results CT ABD PELVIS WO IV OR ORAL CONTRAST - Completed: 01/03/2022 09:10 LOINC: Radiation optimization: All CT scans at this facility use at least one of these dose optimization techniques: automated exposure control; mA and/or kV adjustment per patient size (includes targeted exams where dose is matched to clinical indication); or iterative reconstruction. CT ABDOMEN PELVIS WITHOUT IV CONTRAST Compared to prior CT scan of February 2015. Visualized lung bases are clear and there are no pleural effusions. There is no ascites. There is a lobulated well-defined hypodensity in the left hepatic lobe which measures fluid density. It presently measures 3.5 x 2.5 cm, increased in size from 2015. No new significant focal hepatic findings evident on this non-infused study. No obvious gallbladder pathology. CBD is not dilated. Pancreas unremarkable. Spleen size normal. No adrenal masses evident. The abdominal aorta is not enlarged. There is no retroperitoneal-paraaortic adenopathy. There are parapelvic cysts in the kidneys again noted. Difficult to determine without IV contrast here between parapelvic cysts and caliectasis-hydronephrosis. There is extra-renal pelvis on the right side. The ureters do not appear dilated below the UPJ levels. The pelvic ureters are not dilated but ureterovesical junctions are not seen due to prominent beam-hardening artifact in the bilateral hip prostheses. The urinary bladder is not distended but cannot determine if there are calculi therein because of beam-hardening artifact. The urinary bladder wall is uniformly thickened. No evidence of a bowel obstruction, free air, nor abscess. No significant anterior abdominal wall hernia. No right inguinal hernia. Fat-containing left inguinal hernia noted. In the pelvis there is no intrapelvic nor inguinal adenopathy. Prostate appears enlarged but difficult to evaluate because of beam hardening artifact from bilateral hip prostheses. Urinary bladder is not distended. No obvious intrapelvic nor inguinal adenopathy. There is extensive sigmoid diverticulosis. There is no obvious acute diverticulitis. There are also diverticuli in the left side of the colon distal to the splenic flexure but also without diverticulitis findings. There is no free fluid in the pelvis. Appendix appears unremarkable. Osseous: Bilateral hip prostheses evident, not previously present in 2015. No focal osseous lesions. Sacroiliac joints unremarkable. No fractures evident. Mild disc space narrowing at L4-5 and L5-S1 levels. IMPRESSION: 1. Renal findings as above which would be better studied with IV contrast. There are bilateral parapelvic cysts. Difficult to determine this from mild hydronephrosis, particularly on the left side. Nevertheless, the ureters below the UPJ levels are not dilated. Bilaterally UVJ and bladder are difficult to evaluate because of beam hardening artifact from bilateral hip prostheses. The prostate is enlarged but the bladder is not distended. 2. Extensive sigmoid diverticulosis but no obvious diverticulitis and there is no evidence of appendicitis. No ascites. Dictated by: HN JUAQUIN PRESSLEY MD Transcribed by: [facility] 01/03/22/14:49 D December 10:32:39 AM [id number] Electronically Reviewed and Signed By: JUAQUIN PRESSLEY MD 01/04/22 23:44 Copy for: JAMI Campos via fax Copy for: MARK Yousif via fax Copy for: [facility]i HEALTH INFORMATION MG[facility] Social History Type Status Start Date End Date Code Code Syst em Smoking History Never smoker (Never Smoked) [id number] SNOMED CT Sex Male Medications Medication Start Date End Date Route Frequency Dose Code Code System Medication Instructions Home Meds Atorvastatin Calcium 20MG Oral Tablet 02/25/2015 Unknown ORAL DAILY 20 MILLIGRAMS 156666 RxNorm CORA E 20 MILLIGRAMS ORAL DAILY Citalopram 40MG Oral Tablet 02/25/2015 Unknown ORAL DAILY 40 MILLIGRAMS 995546 RxNorm CORA E 40 MILLIGRAMS ORAL DAILY Flomax 0.4MG Oral Capsule 02/25/2015 Unknown ORAL DAILY 1 TABLET 010695 RxNorm TAKE 1 TABLET ORAL DAILY Assessment [...] Status Code Code System TURP SYNDROME active 315996700 SNOMED -CT Allergies and Adverse Reactions Allergy Substance Reaction Severity Start Date Concern Status Co de Code System PROCHLORPERAZINE Active 8704 RxNorm Plan of Treatment LAB DRAW 15MIN 09/10/2022 PRE-OP COVID-19 TESTING 01/14/2022 CT ABDOMEN/PELVIS W/O CONTRAST 01/04/20 LAB DRAW 15MIN 11/07/2021 LAB DRAW 15MIN 04/26/2021 Encounters Encounter Diagnosis Start Date Code Code Sys tem Hematuria, unspecified 01/03/2022 SNOME D-CT Personal Care Team Section Performer Name Performer Role Active Date Inactive Da anibal
--- OUTSIDE RECORDS SUMMARY | 2023-11-20 08:35 | XMS_ITS | Encounter Summary ---
Author Organization [facility] Address [address] [place] [address] Care Team Providers Care Block Greaser Name Role Phone Not In System, Provider Primary Care Provider Un available Reason for Visit * Reason Comments Follow-up Left hip Encounter Details Date Type Department Care Team (Latest Contact Info) Description 03/01/2020 11:45 AM EST Office Visit [facility], [facility] [address] [place] [address] Shonda Robbins PA [address] [place], [place] [id number] Primary osteoarthritis of left hip (Primary Dx); Status post total hip replacement, left Social History Tobacco Use Types Packs/Day [...] - - Weight 93 kg (205 lb) 03/01/2020 11:30 AM EST Height 175.3 cm (5' 9.02) 03/01/2020 11:[address] Body Mass Index 30.26 03/01/2020 11:30 AM EST documented in this encounter Progress Notes * MADINA Fajardo - 03/01/2020 11:45 AM EST Patient Name: Chico Mg Date of : 1950 LEFT Total Hip Arthroplasty H&P HPI: Chico Mg is a very pleasant 69 y.o. who presents today for a preoperative H&P prior to scheduled LEFT Total Hip Arthroplasty. Hx of Right JEAN PAUL performed at [facility] by Dr. Rodriguez in 2018 and reports he did very well postoperatively. Patient has completed the preop teaching course, Prehab, PAT. Presents today for surgical/perioperative discussion. Perioperative medications will be prescribed and have been discussed, including opiod prescription and its use for severe pain. He/she post-op plans include: Home with outpatient PT. Wants to go home same day of surgery. The onset of the pain was gradual [...] Activity modification, physical therapy, exercise and NSAIDs, [id number] medications have been tried without relief. ROS: All other systems reviewed negative and non-contributory. Reviewed prior intake sheet. Unchanged since last encounter and intake forms, medications reviewed. PHYSICAL EXAM: Well groomed, Normal development and [...] AP Pelvis and AP/Lateral XRs of the LEFT hip showed evidence of severe osteoarthritis with loss of joint space, subchondral sclerosis, and osteophytes. Right JEAN PAUL intact w/o signs of hardware failure. IMPRESSION: 1. Severe Osteoarthritis LEFT Hip The diagnosis and treatment of Hip Osteoarthritis was fully discussed, including risks, benefits, surgical procedure/approach, anesthesia options, and potential complications. Patient would like to proceed with planned Total Hip Arthroplasty. We also reiterated and discussed the importance of Pre-Operative Medical Optimization, which includes seeing PCP and specialist providers, addressing any medical concerns prior to surgery (including reporting/treating wounds, rashes, cold-like symptoms, UTIs, etc...), maintaining a healthy weight, DM control/A1c control (if applicable), smoking cessation (if applicable) PLAN: 1. LEFT Total Hip Arthroplasty - PAT completed, Prehab/PAT teaching to be completed this afternoon - Surgery scheduled 03/13/2020 - Medical clearance to be faxed to our clinic - Perioperative medications prescribed, unless otherwise specified The risks and benefits of opioid treatment, as well as alternative pain strategies, have been reviewed: - Patient understands [facility] will only provide short-term post- operative pain management, limited to 6 weeks - If the need for opioid management exceeds 6 weeks, the patient will be referred to their PCP and/or automotive painter helper - Prescription Drug Monitoring Program from [facility] has been reviewed This patient has been prescribed and opioid medication for pain management of the associated diagnosis. The following have been discussed during our encounter today. ??? Risks of developing dependence or addiction to the prescription opioid and potential of overdose or ??? Risks of concurrent use of alcohol or other sedating medications, such as benzodiazepines ??? Impaired ability to safely operate any motor vehicle ??? Patient???s responsibility to safeguard all opioid medications in a secure location ??? Alternative treatments for managing pain (non-opioid medications and/or non- pharmacologic treatments) ??? Risks of relapse for those who are in recovery from substance dependence. This prescription is medically necessary for the associated diagnosis. After this conversation, the patient elected to receive a prescription for opioids prior to d/c. KARISSA reviewed. Signed: MADINA Fajardo 03/01/2020 11:34 AM documented in this encounter Plan of Treatment Not on file documented as of this encounter Visit Diagnoses Diagnosis Primary osteoarthritis of left hip- Primary Status post total hip replacement, left documented in this encounter Care Teams Block Greaser Relationship Specialty Start Date End Date Not In System, Provider JOSE RINALDI [id number] PCP - General 01/03/20 documented as of this encounter
--- OUTSIDE RECORDS SUMMARY | 2023-11-20 08:35 | XMS_ITS ---
Author Organization Unknown Address [address] [place] [address] [phone] Phone Care Team Providers Care Machine Tool Mechanic Name Role Phone JAMI Campos Attending Unavailable MARK Yousif Primary Unavailable Results PSA DIAG PROSTATE SPECIFIC A NTIGEN * - Collect Date/Time: 11/07/2021 14:35 [facility] ID: [id number] [address] [place] [place] [address], [address] LOINC: 2857-1 Test Value Unit Reference Range Code Code System Flag PSA 15.41 ng/mL L=0.00 H=6.50 2857-1 LOINC H Social History Type Status Start Date End Date Code Code Syst em Smoking History Never smoker (Never Smoked) 511739610 SNOMED CT Sex Male Medications Medication Start Date End Date Route Frequency Dose Code Code System Medication Instructions Home Meds Atorvastatin Calcium 20MG Oral Tablet 02/25/2015 Unknown ORAL DAILY 20 MILLIGRAMS 904856 RxNorm CORA E 20 MILLIGRAMS ORAL DAILY Citalopram 40MG Oral Tablet 02/25/2015 Unknown ORAL DAILY 40 MILLIGRAMS 996362 RxNorm CORA E 40 MILLIGRAMS ORAL DAILY Flomax 0.4MG Oral Capsule 02/25/2015 Unknown ORAL DAILY 1 TABLET 178935 RxNorm TAKE 1 TABLET ORAL DAILY Assessment [...] Status Code Code System TURP SYNDROME active 201026290 SNOMED -CT Allergies and Adverse Reactions Allergy Substance Reaction Severity Start Date Concern Status Co de Code System PROCHLORPERAZINE Active 8704 RxNorm Plan of Treatment LAB DRAW 15MIN 09/10/2022 PRE-OP COVID-19 TESTING 01/14/2022 CT ABDOMEN/PELVIS W/O CONTRAST 01/04/20 LAB DRAW 15MIN 11/07/2021 LAB DRAW 15MIN 04/26/2021 Encounters Encounter Diagnosis Start Date Code Code Sys tem Raised prostate specific antigen 11/07/2021 [id number] 5 SNOMED-CT Personal Care Team Section Performer Name Performer Role Active Date Inactive Da te
--- OUTSIDE RECORDS SUMMARY | 2023-11-20 08:36 | XMS_ITS ---
Author Organization Unknown Address [address] [place] [address] [phone] Phone Care Team Providers Care Foundation Coordinator Name Role Phone JAMI Campos Attending Unavailable MARK Yousif Primary Unavailable Results CULT URINE CULTURE* - Nicanor seals Date/Time: 01/30/2022 09:40 [facility] ID: [id number] [address] [place] [address], [phone] LOINC: 630-4 Test Value Unit Reference Range Code Code System Flag COLLECTION MODE: NOT STATED 48465-0 LOINC Social History Type Status Start Date End Date Code Code Syst em Smoking History Never smoker (Never Smoked) 817266968 SNOMED CT Sex Male Medications Medication Start Date End Date Route Frequency Dose Code Code System Medication Instructions Home Meds Atorvastatin Calcium 20MG Oral Tablet 02/25/2015 Unknown ORAL DAILY 20 MILLIGRAMS 721240 RxNorm CORA E 20 MILLIGRAMS ORAL DAILY Citalopram 40MG Oral Tablet 02/25/2015 Unknown ORAL DAILY 40 MILLIGRAMS 457400 RxNorm CORA E 40 MILLIGRAMS ORAL DAILY Flomax 0.4MG Oral Capsule 02/25/2015 Unknown ORAL DAILY 1 TABLET 859980 RxNorm TAKE 1 TABLET ORAL DAILY Assessment [...] Status Code Code System TURP SYNDROME active 215182756 SNOMED -CT Allergies and Adverse Reactions Allergy Substance Reaction Severity Start Date Concern Status Co de Code System PROCHLORPERAZINE Active 8704 RxNorm Plan of Treatment LAB DRAW 15MIN 09/10/2022 PRE-OP COVID-19 TESTING 01/14/2022 CT ABDOMEN/PELVIS W/O CONTRAST 01/04/20 LAB DRAW 15MIN 11/07/2021 LAB DRAW 15MIN 04/26/2021 Encounters Encounter Diagnosis Start Date Code Code Sys tem Blood in urine 01/30/2022 50845434 SNOMED-CT Personal Care Team Section Performer Name Performer Role Active Date Inactive Da te
--- OUTSIDE RECORDS SUMMARY | 2023-11-20 08:36 | XMS_ITS ---
Author Organization Unknown Address [address] [place] [address] [phone] Phone Care Team Providers Care Correctional Nurse Name Role Phone JAMI Campos Attending Unavailable MARK Yousif Primary Unavailable Results [facility] - Edward ect Date/Time: 01/14/2022 10:13 [facility] ID: [id number] [address] [place] [address], [phone] LOINC: 21734-6 Test Value Unit Reference Range Code Code System Flag Tier- PRE-OP 49427-9 LOINC SARS COV2 RNA: NEGATIVE REFERENCE RANGE: NEGAT 27636-2 L OINC Social History Type Status Start Date End Date Code Code Syst em Smoking History Never smoker (Never Smoked) 495564477 SNOMED CT Sex Male Medications Medication Start Date End Date Route Frequency Dose Code Code System Medication Instructions Home Meds Atorvastatin Calcium 20MG Oral Tablet 02/25/2015 Unknown ORAL DAILY 20 MILLIGRAMS 192153 RxNorm CORA E 20 MILLIGRAMS ORAL DAILY Citalopram 40MG Oral Tablet 02/25/2015 Unknown ORAL DAILY 40 MILLIGRAMS 259654 RxNorm CORA E 40 MILLIGRAMS ORAL DAILY Flomax 0.4MG Oral Capsule 02/25/2015 Unknown ORAL DAILY 1 TABLET 568863 RxNorm TAKE 1 TABLET ORAL DAILY Assessment [...] Status Code Code System TURP SYNDROME active 704536842 SNOMED -CT Allergies and Adverse Reactions Allergy Substance Reaction Severity Start Date Concern Status Co de Code System PROCHLORPERAZINE Active 8704 RxNorm Plan of Treatment LAB DRAW 15MIN 09/10/2022 PRE-OP COVID-19 TESTING 01/14/2022 CT ABDOMEN/PELVIS W/O CONTRAST 01/04/20 LAB DRAW 15MIN 11/07/2021 LAB DRAW 15MIN 04/26/2021 Encounters Encounter Diagnosis Start Date Code Code Sys tem Pre-surgery testing 01/14/2022 553239539 SNOMED-C T Personal Care Team Section Performer Name Performer Role Active Date Inactive Da te
--- OUTSIDE RECORDS SUMMARY | 2023-11-20 08:36 | XMS_ITS ---
Author Organization Unknown Address [address] [place] [address] [phone] Phone Care Team Providers Care Customs Compliance Director Name Role Phone JAMI Campos Attending Unavailable POWER Lee OVERNIGHT HOUSEPERSON Unavailable MARK Yousif Primary Unavailable Results CULT URINE CULTURE* - Nicanor seals Date/Time: 01/16/2022 15:53 [facility] ID: [id number] [address] [place] [address], [phone] LOINC: 630-4 Test Value Unit Reference Range Code Code System Flag COLLECTION MODE: CYSTOSCOPY 57424-9 LOINC Social History Type Status Start Date End Date Code Code Syst em Smoking History Never smoker (Never Smoked) 241678343 SNOMED CT Sex Male Vital Signs Vital Sign Value Unit [place] Value [place] Unit Date/Time Recent/Initial? Code Code System Systolic Blood Pressure 115 mm[Hg] 01/16/2022 13:24 Initial 8480-6 LOINC Diastolic Blood Pressure 63 mm[Hg] 01/16/2022 13:24 Initial 8462-4 LOINC O2 Saturation 98 % 2021 13:24 Initial 52263- 5 LOINC Pulse 62.0 /min 01/16/2022 13:24 Initial 8867-4 LOINC Respiration 14 /min 01/17/20 22 13:24 Initial 9279-1 LOINC Temperature 36.4 Jenniffer 97.5 F 01/17/20 22 13:24 Initial 8310-5 LOINC Medications Medication Start Date End Date Route Frequency Dose Code Code System Medication Instructions Home Meds Atorvastatin Calcium 20MG Oral Tablet 02/25/2015 Unknown ORAL DAILY 20 MILLIGRAMS 393955 RxNorm CORA E 20 MILLIGRAMS ORAL DAILY Citalopram 40MG Oral Tablet 02/25/2015 Unknown ORAL DAILY 40 MILLIGRAMS 078371 RxNorm CORA E 40 MILLIGRAMS ORAL DAILY Flomax 0.4MG Oral Capsule 02/25/2015 Unknown ORAL DAILY 1 TABLET 956380 RxNorm TAKE 1 TABLET ORAL DAILY Assessment You had the following problems:TURP SYNDROME Hospital Discharge Instructions Should you have any questions prior to discharge, please contact a member of your healthcare team. If you have left the hospital and have any questions, please contact your primary care physician. Reason For Referral No Data Found Procedures Procedure Name Date Status Code Code Syste m Dilation, Urethral Stricture , Passage, Sound/Urethral Dilator, Male; Initial 01/16/2022 completed 34729 CPT Anesthesia, Transurethral Pr oc (w/Urethrocystoscopy); NOS 01/16/2022 completed 52991 CPT Problems Problem Start Date Resolved Date Status Code Code System TURP SYNDROME active 644272935 SNOMED -CT Allergies and Adverse Reactions Allergy Substance Reaction Severity Start Date Concern Status Co de Code System PROCHLORPERAZINE Active 8704 RxNorm Plan of Treatment LAB DRAW 15MIN 09/10/2022 PRE-OP COVID-19 TESTING 01/14/2022 CT ABDOMEN/PELVIS W/O CONTRAST 01/04/20 LAB DRAW 15MIN 11/07/2021 LAB DRAW 15MIN 04/26/2021 Encounters Encounter Diagnosis Start Date Code Code Sys tem Gross hematuria 01/16/2022 SNOMED-CT Personal Care Team Section Performer Name Performer Role Active Date Inactive Da te
--- OUTSIDE RECORDS SUMMARY | 2023-11-20 08:37 | XMS_ITS ---
Author Organization Unknown Address [address] [place] [address] [phone] Phone Care Team Providers Care Nurse Research Name Role Phone JAMI Campos Attending Unavailable MARK Yousif Primary Unavailable Results PSA DIAG PROSTATE SPECIFIC A NTIGEN * - Collect Date/Time: 09/10/2022 10:03 [facility] ID: [id number] [address] [place] [address], [address] LOINC: 2857-1 Test Value Unit Reference Range Code Code System Flag PSA 13.77 ng/mL L=0.00 H=6.50 2857-1 LOINC H Social History Type Status Start Date End Date Code Code Syst em Smoking History Never smoker (Never Smoked) 374742188 SNOMED CT Sex Male Medications Medication Start Date End Date Route Frequency Dose Code Code System Medication Instructions Home Meds Atorvastatin Calcium 20MG Oral Tablet 02/25/2015 Unknown ORAL DAILY 20 MILLIGRAMS 164135 RxNorm CORA E 20 MILLIGRAMS ORAL DAILY Citalopram 40MG Oral Tablet 02/25/2015 Unknown ORAL DAILY 40 MILLIGRAMS 839019 RxNorm CORA E 40 MILLIGRAMS ORAL DAILY Flomax 0.4MG Oral Capsule 02/25/2015 Unknown ORAL DAILY 1 TABLET 107500 RxNorm TAKE 1 TABLET ORAL DAILY Assessment [...] Status Code Code System TURP SYNDROME active 824613296 SNOMED -CT Allergies and Adverse Reactions Allergy Substance Reaction Severity Start Date Concern Status Co de Code System PROCHLORPERAZINE Active 8704 RxNorm Plan of Treatment LAB DRAW 15MIN 09/10/2022 PRE-OP COVID-19 TESTING 01/14/2022 CT ABDOMEN/PELVIS W/O CONTRAST 01/04/20 22 LAB DRAW 15MIN 11/07/2021 LAB DRAW 15MIN 04/26/2021 Encounters Encounter Diagnosis Start Date Code Code Sys tem Primary malignant neoplasm of prostate 09/10/2022 93 251242 SNOMED-CT Personal Care Team Section Performer Name Performer Role Active Date Inactive Da te
--- OUTSIDE RECORDS SUMMARY | 2023-11-20 08:37 | XMS_ITS | Data Portability ---
Author Organization [facility] Address [address] [place] [address] Assessment No assessment recorded. Plan of Treatment Reminders Order Date Submit Date Provider Last Modified By Organization Details Last Modified Time Details Appointments None recorded. Lab None recorded. Referral physical therapy hip referral - PREHAB 2016 017 [email or web address] Not available 8 16:03:34 physical therapy hip referral - Proceed to home program when appropriate 2017 018 [email or web address] Not available 8 11:43:19 physical therapy hip referral - Proceed to home program when appropriate 2018 019 [email or web address] Not available 9 12:25:39 Procedures None recorded. Surgeries total hip arthroplast y (SURG) 2016 017 [email or web address] Not available 7 13:22:33 Imaging XR, hip, unilateral 2016 017 PRESTON Not available 8 11:51:23 XR, hip, unilateral 2017 018 PRESTON Not available 9 10:45:51 XR, hip, unilateral 2018 019 [email or web address] Not available 9 12:00:00 Medication Orders Celebrex 200 mg capsule 2016 017 [email or web address] 10 [facility][id number], [address] [place], [address], 9 10:45:29 Patient TargetsNo targets recorded. Patient Instructions Encounter Date Encounter Id Patient Instructions Last Modified By Organization Details Last Modified Time 04/08/2017 [id number] hip pain: care instructions [email or web address] Not available 04/08/2017 09:15:29 06/24/2017 [id number] hip pain: care instructions [email or web address] Not available 06/24/2017 11:42:47 05/05/2018 [id number] hip pain: care instructions [email or web address] Not available 05/05/2018 11:38:38 Reason for Referral PREHAB Referring Physician: [facility], Encounter Date: 04/08/2017 Proceed to home program when appropriate Referring Physician: [facility]ema [facility], Encounter Date: 06/18/2017 Proceed to home program when appropriate Referring Physician: [facility], Encounter Date: 06/24/2017 Proceed to home program when appropriate Referring Physician: [facility]ema [facility], Encounter Date: 05/05/2018 Results Created Date Observation Date Name Description Value Unit Range Abnormal Flag LastModifiedBy Organization Detail LastModifiedTime 04/08/20 17 hip RT No observ ation record ed. [email or web address] [address], [address] 04/08/2017 08:38:40 05/06/19 18 05/06/2017 XR, hip, unila teral No observ ation record ed. [email or web address] [facility] ([facility]) [address] [facility], [place], [address], 05/07/2017 08:01:07 05/12/19 18 05/12/2017 XR, hip, unila teral No observ ation record ed. [facility] ([facility]) [address] [facility] [address] [facility], [place], [address], 05/12/2017 10:02:23 05/12/19 18 05/12/2017 XR, hip, unila teral No observ ation record ed. [facility] ([facility]) [address] [place], [address], 05/12/2017 10:02:23 01/22/20 18 05/12/2017 XR, hip + pelvi s, unila teral , 2 or 3 view No observ ation record ed. [facility] ([facility]) [address] [facility], [place], [address], 05/12/2017 11:12:44 06/25/19 18 hip RT No observ ation record ed. [address], [address] 06/24/2017 11:15:18 05/05/19 19 XR, hip, unila teral No observ ation record ed. [address], [address] 05/08/2018 12:24:36 Result Notes None recorded. Problems No Known Problems Procedures Surgical History Date Name Laterality Status Provider Name and Address Organization Details Recorded Time Back Surgery completed Devi aguilar [facility] 04/08/2017 08:48:57 Prostatectomy (turp) completed Devi aguilar MA [facility] 04/08/2017 08:49:14 Arthroscopic Surgery completed Devi aguilar [facility] 04/08/2017 08:50:31 Imaging Results Imaging Date Name Status LastModified by [email or web address] Details LastModified Time 04/08/2017 hip RT completed [address], [address] 04/08/2017 08:38:40 05/06/2017 XR, hip, unilateral completed [address] ([facility]) [address] [facility], [place], [address], 05/07/2017 08:01:07 05/12/2017 XR, hip, unilateral completed [facility] ([facility]) [address] [place], [address], 05/12/2017 10:02:23 05/12/2017 XR, hip, unilateral completed [facility] ([facility]) [address] [place], [address], 05/12/2017 10:02:23 05/12/2017 XR, hip + pelvis, unilateral, 2 or 3 view completed [facility] ([facility]) [address] [facility], [place], [address], 05/12/2017 11:12:44 06/24/2017 hip RT completed [email or web address] [facility] [address] [place], [address] 06/24/2017 11:15:18 05/05/2018 [facility] [address] [place], [address] 05/08/2018 12:24:36 Procedure Notes None recorded. Medical Equipment None Reported. Allergies Allergen ID Allergen Name Allergen Category Reaction Reaction Severity Criticality Documentation Date Start Date Code Code System Note Provider Name and Address Organization Details Recorded Time 19970423 Compazine medicatio n Not available Not available Not available 04/08/2017 33216 6 RxNorm Devi Gonzalez [facility] 7 08:48:02 Medications Name Sig Start Date Stop Date Status Note LastModified by Organization Details LastModified Time celecoxib 200 mg capsule Take 1 capsule twice a day by oral route. 05/05 completed Not Available Not Available Not Available fluoxetine 40 mg capsule 04/08 completed Not Available Not Available Not Available citalopram 40 mg tablet 04/08 completed Not Available Not Available Not Available atorvastatin 10 mg tablet 05/05 completed Not Available Not Available Not Available cephalexin 500 mg capsule 04/08 completed Not Available Not Available Not Available fluoxetine 20 mg capsule 05/05 completed Not Available Not Available Not Available sertraline 50 mg tablet 05/05 completed Not Available Not Available Not Available oxycodone 5 mg tablet 06/24 completed Not Available Not Available Not Available Vitals Date Recorded Body height Body mass index (BMI) Body weight Body temperature Provider Name and Address Organization Details Last Updated DateTime 04/08/2017 175.26 cm 28.6 kg/m2 51044.92 g 98.5 [degF] Devi Gonzalez MA [facility] 04/08/2017 08:47:56 Date Recorded Body height Body mass index (BMI) Body weight Body temperature Provider Name and Address Organization Details Last Updated DateTime 06/24/2017 175.26 cm 28.6 kg/m2 69023.92 g 98.5 [degF] Vaishali Gunter [facility] 06/24/2017 11:09:34 Date Recorded Body height Body mass index (BMI) Body weight Body temperature Provider Name and Address Organization Details Last Updated DateTime 05/05/2018 175.26 cm 28.6 kg/m2 79590.92 g 97 [degF] Daniel Mathur [facility] 05/05/2018 10:45:20 Social History Question Answer Notes LastModified by Organizat ion Details LastModified Time Tobacco Smoking Status Never Smoker Devi Gonzalez jeff [facility] 04/08/2017 08:48:45 Do You Have An Advance Directive? Yes Living Will [email or web address] Information not available 04/08/2017 What Is Your Level Of Alcohol Consumption? Occasional [email or web address] Information not available 04/08/2017 How Many Days In The Past Year Have You Had A Heavy Drinking Consumption (4+ Female, 5+ Male)? 0 [email or web address] Information not available 04/08/2017 What Was The Date Of Your Most Recent Tobacco Screening? 05/05/2018 Information not available 11/11/2018 Sex: Unknown Functional Status None recorded. Mental Status None recorded. Family History Relationship Description Onset Age of this Age Resolved Age Notes Father Heart disease Medical History Condition Response Depression Y Past Encounters Encounter ID Performer Location Encounter Start Date Encounter Closed Date Diagnosis/Indication Diagnosis SNOMED-CT Code [id number] HEMA VAIL DO [address],[place] [address] [place] [address] 04/08/2017 08:01:19 04/08/2017 09:42:24 Hip pain 16362761 Osteoarthritis of hip 23 0614624 [id number] HEMA VAIL DO [address],[place] [address] [place] [phone] 06/24/2017 10:29:19 06/24/2017 11:35:18 Hip pain 03015721 History of total hip arthroplasty 350259042916 [id number] HEMA VAIL DO [address] [place] [address] 05/05/2018 10:30:22 05/05/2018 11:26:28 Hip pain 40236217 History of total hip arthroplasty 474650087710 Health Concerns Section Related Observation LastModified by Organization Detai ls LastModified Time None Recorded Concern Status LastModified by Organization Details LastModified Time None Recorded Advance Directives Directive Y: Living Will Payers Encounter Date Sequence Insurance Name Policy Number Policy Ruby Covered Member ID Ruby Member ID Guarantor Name 04/08/2017 1 [place] [employer] [place] Mg [id number] [place] Mg 04/08/2017 2 [employer] OPTIONS (MEDICARE SUPPLEMENT) [place] Mg [id number] [place] Mg 06/24/2017 1 [place] [employer] [place] [id number] [place] Mg 06/24/2017 2 [employer] OPTIONS (MEDICARE SUPPLEMENT) [place] Mg [id number] [place] Mg 05/05/2018 1 [place]: [facility] G[facility]ERNMENT SERVICES [place] Mg [id number] [place] Mg 05/05/2018 2 [employer] OPTIONS (MEDICARE SUPPLEMENT) [place] Mg [id number] [place] Mg Notes Date Note Type Note Provider Name and Address Organization Details Recorded Time 04/08/2017 text/html HPI Notes: [place] is very pleasant 66-year-old male who presents today with greater than six month history of severe debilitating pain referable to the right hip. The onset of the pain was gradual but it has now increased to the point where it is present at all times and worsened with weight-bearing activity. The pain is characterized as deep, stabbing and catching. It is located primarily in the groin but radiates to the buttock and thigh. The severity of the discomfort and stiffness is causing difficulty walking for distances or stand for extended length of time. Rising from a chair and negotiating stairs as well as donning nothing footwear is difficult. The pain is worse at night and interfering with sleep. Activity modification physical therapy exercise and NSAIDs, [id number] medications have been tried without relief. IMAGING: X-ray showed evidence of advanced osteoarthritis with loss of joint space sub chondral sclerosis and osteophytes. HEMA VAIL, DO [address] [facility] [address], [place], [address], [facility] 04/08/2017 09:50:04 06/24/2017 text/html HPI Notes: 6 wee ks postoperative visit s/p JEAN PAUL. Minimal discomfort. Progressing well with PT Ambulating independently. Resuming ADLs. X-rays: Weightbearing AP pelvis AP lateral bilateral hips show the implants in satisfactory position with pristine interfaces. Leg lengths are equal. offsets are equal. HEMA VAIL DO [address] [facility] [address], [place], [address], [facility] 06/24/2017 11:43:18 05/05/2018 text/html HPI Notes: one y ear follow-up visit for a right JEAN PAUL. Complaints of pain are minimal. Ambulates independently without assistive devices. Overall doing well. Performing normal activities of daily living. HEMA VAIL DO [address] [facility] [address], [place], [address], [facility] 05/05/2018 11:39:38
--- OUTSIDE RECORDS SUMMARY | 2023-11-20 08:37 | XMS_ITS ---
Author Organization Unknown Address [address] [place] [phone] Phone Care Team Providers Care Communications Analyst Name Role Phone BRIANA HO Registered Nurse Unavailable BRIAN May Attending Unavailable J[facility] Unavailable MARK Yousif Primary Unavailable UNLISTED PROVIDER - REQUESTED Xhandoff Un available Social History Type Status Start Date End Date Code Code Syst em Smoking History Never smoker (Never Smoked) 177100826 SNOMED CT Sex Male Vital Signs Vital Sign Value Unit [place] Value [place] Unit Date/Time Recent/Initial? Code Code System Body Mass Index 31.56 kg/m2 09/10/2022 13:26 Initial 53219 -5 LOINC Systolic Blood Pressure 161 mm[Hg] 09/10/2022 13:26 Initial 8480- 6 LOINC Diastolic Blood Pressure 90 mm[Hg] 09/10/2022 13:26 Initial 8462- 4 LOINC Body Surface Area 2.22 m2 09/10/2022 13:26 Initial 3140- 1 LOINC Height 178.003 2 cm 70.08 in 09/10/2022 13:26 Initial 8302- 2 LOINC O2 Saturation 100 % 2022 13:26 Initial 90071 -5 LOINC Pulse 62.0 /min 09/10/2022 13:26 Initial 8867- 4 LOINC Respiration 16 /min 09/11/19 13:26 Initial 9279- 1 LOINC Temperature 36.5 Jenniffer 97.7 F 09/11/19 13:26 Initial 8310- 5 LOINC Weight 100.00 kg 220.46 lbs 09/10/2022 13:26 Initial 89188 -7 [facility] Medications Medication Start Date End Date Route Frequency Dose Code Code System Medication Instructions Home Meds Atorvastatin Calcium 20MG Oral Tablet 02/25/2015 Unknown ORAL DAILY 20 MILLIGRAMS 352546 RxNorm CORA E 20 MILLIGRAMS ORAL DAILY Citalopram 40MG Oral Tablet 02/25/2015 Unknown ORAL DAILY 40 MILLIGRAMS 330394 RxNorm CORA E 40 MILLIGRAMS ORAL DAILY Flomax 0.4MG Oral Capsule 02/25/2015 Unknown ORAL DAILY 1 TABLET 121707 RxNorm TAKE 1 TABLET ORAL DAILY Assessment [...] Status Code Code System TURP SYNDROME active 000660362 SNOMED -CT Allergies and Adverse Reactions Allergy Substance Reaction Severity Start Date Concern Status Co de Code System PROCHLORPERAZINE Active 8704 RxNorm Plan of Treatment LAB DRAW 15MIN 09/10/2022 PRE-OP COVID-19 TESTING 01/14/2022 CT ABDOMEN/PELVIS W/O CONTRAST 01/04/20 22 LAB DRAW 15MIN 11/07/2021 LAB DRAW 15MIN 04/26/2021 Encounters Encounter Diagnosis Start Date Code Code Sys tem Laceration without foreign b tammy of right hand, initial encounter 09/10/2022 SNOMED-CT Personal Care Team Section Performer Name Performer Role Active Date Inactive Da anibal
--- OUTSIDE RECORDS SUMMARY | 2023-11-20 08:37 | XMS_ITS ---
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 Name Role Phone JAMI Campos Attending Unavailable MARK Yousif Primary Unavailable Results CULT URINE CULTURE* - Nicanor seals Date/Time: 02/21/2022 08:22 [facility] ID: [id number] [address] [place] [address], [id number] LOINC: 630-4 Test Value Unit Reference Range Code Code System Flag COLLECTION MODE: CLEAN CATCH 04804-0 LOINC Social History Type Status Start Date End Date Code Code Syst em Smoking History Never smoker (Never Smoked) 864872060 SNOMED CT Sex Male Medications Medication Start Date End Date Route Frequency Dose Code Code System Medication Instructions Home Meds Atorvastatin Calcium 20MG Oral Tablet 02/25/2015 Unknown ORAL DAILY 20 MILLIGRAMS 798938 RxNorm CORA E 20 MILLIGRAMS ORAL DAILY Citalopram 40MG Oral Tablet 02/25/2015 Unknown ORAL DAILY 40 MILLIGRAMS 517943 RxNorm CORA E 40 MILLIGRAMS ORAL DAILY Flomax 0.4MG Oral Capsule 02/25/2015 Unknown ORAL DAILY 1 TABLET 141130 RxNorm TAKE 1 TABLET ORAL DAILY Assessment [...] Status Code Code System TURP SYNDROME active 203412777 SNOMED -CT Allergies and Adverse Reactions Allergy Substance Reaction Severity Start Date Concern Status Co de Code System PROCHLORPERAZINE Active 8704 RxNorm Plan of Treatment LAB DRAW 15MIN 09/10/2022 PRE-OP COVID-19 TESTING 01/14/2022 CT ABDOMEN/PELVIS W/O CONTRAST 01/04/20 LAB DRAW 15MIN 11/07/2021 LAB DRAW 15MIN 04/26/2021 Encounters Encounter Diagnosis Start Date Code Code Sys tem Eric hematuria 02/21/2022 222231651 SNOMED-CT Personal Care Team Section Performer Name Performer Role Active Date Inactive Da te
[2023-11-20 15:09] LABS: Hemoglobin A1C 5.6 % (<5.7)
[2023-11-20 15:16] LABS: ALT 40 U/L (16-63); AST 22 U/L (15-37); Alkaline Phosphatase 93 U/L (46-116); Anion Gap 7.5 mmol/L (3-11); BUN 18 mg/dL (7-18); Bilirubin, Total 0.54 mg/dL (0.2-1.0); CO2 26.5 mmol/L (21.0-32.0); CREATININE 0.8 mg/dL (0.70-1.30); Calculated LDL 146 mg/dL (<100); Chloride 105 mmol/L (98-107); Cholesterol 204 mg/dL (<200); Estimated GFR 92.29 (mL/min/1.73m2); Glucose 109 mg/dL (74-106); HDL Cholesterol 49 mg/dL (40-60); Potassium 4.4 mmol/L (3.5-5.1); Sodium 139 mmol/L (136-145); Total Protein 7.5 g/dL (6.4-8.2); Triglyceride 49 mg/dL (<150)
== END 2023-11-20 08:32 | disposition home or self-care (01) ==
LOC: NCHCN 08:31
PROVIDERS: PCP Family Medicine; Visit Provider Family Medicine
DX: Z00.00 Encounter for general adult medical examination without abnormal findings (principal)
CPT/HCPCS: 80053; 80061; 83036

== ENCOUNTER 2024-06-15 15:05 | Outpatient (REF) | payer MEDICARE, SELFPAY ==
[2024-06-16 19:59] LABS: PSA, Screening 15.7 ng/mL (<=6.5)
== END 2024-06-15 15:06 | disposition home or self-care (01) ==
LOC: NCHCN 15:05
PROVIDERS: PCP Family Medicine; Visit Provider Physician Assistant
DX: N40.1 Benign prostatic hyperplasia with lower urinary tract symptoms (principal); Z12.5 Encounter for screening for malignant neoplasm of prostate
CPT/HCPCS: 84153; 87086

== ENCOUNTER 2024-06-24 21:01 | Outpatient (REF) | payer MEDICARE, SELFPAY | END 2024-06-24 21:02 | disposition home or self-care (01) | LOC: NCHCN 21:01 | PROVIDERS: PCP Family Medicine; Visit Provider Family Medicine | DX: R30.0 Dysuria (principal) | CPT/HCPCS: 87086 ==

== ENCOUNTER 2024-11-26 15:58 | Outpatient (REF) | payer MEDICARE, SELFPAY ==
[2024-11-26 14:47] LABS: Hemoglobin A1C 5.5 % (<5.7)
[2024-11-26 15:02] LABS: ALT 26 U/L (16-63); AST 19 U/L (15-37); Albumin 3.9 g/dL (3.4-5.0); Alkaline Phosphatase 109 U/L (46-116); Anion Gap 7.5 mmol/L (3-11); BUN 21 mg/dL (7-18); Bilirubin, Total 0.4 mg/dL (0.2-1.0); CO2 28.5 mmol/L (21.0-32.0); Calcium 9.2 mg/dL (8.5-10.1); Calculated LDL 113 mg/dL (<100); Chloride 106 mmol/L (98-107); Cholesterol 168 mg/dL (<200); Estimated GFR 88.51 (mL/min/1.73m2); Glucose 96 mg/dL (74-106); HDL Cholesterol 48 mg/dL (>or=40); Potassium 4.3 mmol/L (3.5-5.1); Sodium 142 mmol/L (136-145); Total Protein 7.6 g/dL (6.4-8.2); Triglyceride 39 mg/dL (<150)
[2024-11-29 08:06] LABS: PSA, Diagnostic 12.2 ng/mL (<=6.5)
== END 2024-11-26 15:59 | disposition home or self-care (01) ==
LOC: NCHCN 15:58
PROVIDERS: PCP Family Medicine; Visit Provider Family Medicine
DX: E78.5 Hyperlipidemia, unspecified (principal); R73.03 Prediabetes; R97.20 Elevated prostate specific antigen [PSA]
CPT/HCPCS: 80053; 80061; 83036; 84153